=== PATIENT | female | born 1950 | race Caucasian/White ===

== ENCOUNTER 2017-10-15 12:01 | Day surgery (SDC) | payer MEDICARE ==
[2017-10-15] MEDS ORDERED: Lidocaine 1% PF 5 ML VIAL ONE (15:00)
[2017-10-15] MEDS ORDERED: PROPOFOL 200 MG/20 ML VIAL ONE (15:00)
--- NOTE | 2017-10-15 15:53 | OP ---
DATE OF PROCEDURE: 10/15/2017 SURGEON: Zulma De Los Santos M.D. PROCEDURE PERFORMED: Esophagogastroduodenoscopy with snare polypectomy. PREPROCEDURE DIAGNOSES: 1. Gastroesophageal reflux disease. 2. Epigastric pain. POSTPROCEDURE DIAGNOSES: 1. Examination to second portion of duodenum. 2. A 3 cm hiatal hernia from 37 cm to 40 cm. 3. Otherwise normal appearing esophagus without evidence of varices. 4. Grossly normal stomach. 5. Two diminutive sessile polyps in the duodenal bulb, removed by cold snare technique. 6. Otherwise normal duodenum. PROCEDURE IN DETAIL: Written informed consent was obtained. The patient was brought to the endoscop y suite. Total intravenous anesthesia was provided by Mercedes Sanchez CRNA. The patient was place d in the left lateral decubitus position. A bite block was inserted into the mouth. When adequate s edation was achieved, a Pentax video diagnostic gastroscope was introduced into the oral cavity and t he esophagus was carefully intubated. The gastroscope was advanced under direct visualization to the second portion of the duodenum. Endoscopic findings revealed a 3 cm hiatal hernia from 37-40 cm fro m the incisors. There was no evidence of esophageal stricture, varices, ulcer or esophagitis. The s tomach was then entered and carefully examined. This included a retroflexed view of the cardia and f undus. No ulcer or gastritis was identified. The duodenum was then inspected from the bulb to the s econd portion. Two diminutive sessile polyps, 3 and 4 mm in diameter were identified in the bulb and removed by cold snare technique. Good hemostasis was verified post-polypectomy. The postbulbar duo denum appeared normal. The stomach was then decompressed as the endoscope was removed from the patie nt. She was repositioned for the colonoscopy. There were no immediate complications. RECOMMENDATIONS: 1. Await pathology results. 2. Ask the patient to call me in 1 week for pathology results. 3. Follow with me in 6 weeks in late October. 4. Initiate omeprazole 40 mg q.a.m. for the next 6 weeks. 5. Proceed with colonoscopy.
--- NOTE | 2017-10-15 22:17 | OP ---
DATE OF PROCEDURE: 10/15/2017 TITLE OF PROCEDURE: Colonoscopy. PREPROCEDURE DIAGNOSIS: Average risk colon cancer screening. POSTPROCEDURE DIAGNOSES: 1. Exam to ileocecal valve; unsatisfactory bowel preparation. 2. Diffusely tortuous colon. 3. Mild sigmoid diverticulosis. 4. Small internal hemorrhoids and hypertrophied anal papillae. 5. Perianal condyloma. 6. No obvious colonic polyps identified; exam limited due to unsatisfactory bowel preparation. PROCEDURE IN DETAIL: Written informed consent was obtained. Upon completion of the EGD, the patient was repositioned for the colonoscopy. Total intravenous anesthesia was provided by Mercedes Sanchez CRNA. The patient was in the left lateral decubitus position. A digital rectal exam was performed , which revealed multiple anal condyloma in the background of a mild reddish discoloration of the per ianal skin for a diameter of about 2 inches. The skin also appeared mottled with several darker pigm ented areas posterior to the anal opening. The appearance was consistent with anal condyloma. A Pen tax video colonoscope was inserted through the anal canal and advanced under direct visualization to the ileocecal valve. Due to the unsatisfactory bowel preparation and the diffusely tortuous colon, t he colonoscope could not be advanced safely into the cecum. The colon was carefully examined as the colonoscope was slowly withdrawn from the cecum. The mucosa appeared diffusely pale. No polyps were identified. However, the exam was limited by the suboptimal quality of the bowel preparation. Brow n liquid stool of moderate amount pooled in multiple areas of the colon. The liquid stool contained vegetable material and additional fecal material which further obscured good visualization of the col onic mucosa. One small 5 mm nonbleeding vascular ectasia was noted in the transverse colon. It was not treated. Frequent diverticular orifices were noted in the sigmoid colon. A retroflexed exam in the rectum demonstrated small internal hemorrhoids and hypertrophied anal papillae. The colon was th en decompressed as the colonoscope was removed from the patient. She was transferred to the day stay surgery area for post-procedure monitoring. There were no immediate complications. RECOMMENDATIONS: 1. Resume previous diet. 2. Refer patient to General Surgery for treatment of the anal condyloma. 3. Repeat colonoscopy in five years. 4. Follow up with Gastroenterology in 6 weeks in late 10/2017.
== END 2017-10-15 16:32 | disposition home or self-care (01) ==
LOC: SDC 12:01
PROVIDERS: ATTEND Internal Medicine Gastroenterology
PROC: 0DB98ZX Excision of Duodenum, Via Natural or Artificial Opening Endoscopic, Diagnostic (ICD-10-PCS; principal; 2017-10-15)
PROC: 0DJD8ZZ Inspection of Lower Intestinal Tract, Via Natural or Artificial Opening Endoscopic (ICD-10-PCS; 2017-10-15)
DX: Z12.11 Encounter for screening for malignant neoplasm of colon (principal); K44.9 Diaphragmatic hernia without obstruction or gangrene; K57.30 Diverticulosis of large intestine without perforation or abscess without bleeding; K64.8 Other hemorrhoids; A63.0 Anogenital (venereal) warts; K31.7 Polyp of stomach and duodenum; K26.9 Duodenal ulcer, unspecified as acute or chronic, without hemorrhage or perforation; K21.9 Gastro-esophageal reflux disease without esophagitis; F11.11 Opioid abuse, in remission; J44.9 Chronic obstructive pulmonary disease, unspecified; R93.2 Abnormal findings on diagnostic imaging of liver and biliary tract; Z87.891 Personal history of nicotine dependence; Z88.5 Allergy status to narcotic agent; Z98.51 Tubal ligation status
CPT/HCPCS: 88305; J2001; J2704

== ENCOUNTER 2019-07-19 10:24 | Inpatient (IN) | payer MEDICARE ==
[2019-07-19] MEDS ORDERED: Norepinephrine 4 MG/4 ML VIAL ONE (10:29)
[2019-07-19] MEDS ORDERED: Fentanyl 20 mcg/ml (100 ml CADD) IV PRN (10:34)
[2019-07-19 10:51] LABS: ALV-art Gradient 145.425 (0-20); Actual Bicarbonate (HCO3a) 19.2 mEq/L (22-28); Analyzer IN Cardio ER; Base Excess (BEa) -6.5 mEq/L (-2.0 to +3.0); CO2 Tension 39.1 mmHg (35.0-45.0); Calcium, Ionized 1.12 mmol/L (1.12-1.30); Carboxyhemoglobin (COHb) 1.3 gm% (0.0-3.0); Hemoglobin (Hb) 12.4 g/dL (12.0-16.0); O2 Tension (PaO2) 233.5 mmHg (> 80.0); Potassium - ABG Lab 3.08 mmol/L (3.70-5.30); Puncture Site RRA; pH, Arterial 7.31 (7.35-7.45)
[2019-07-19 10:55] LABS: #Basophils 0.1 thou/uL (0.0-0.2); #Eosinphils 0.1 thou/uL (0.0-0.7); #Lymphocytes 4.6 thou/uL (1.20-3.40); #Monocytes 0.7 thou/uL (0.11-0.59); #Neutrophils 9.9 thou/uL (1.40-6.50); %Basophils 0.5 % (0.0-1.0); %Eosinophils 0.9 % (0.0-10.0); %Lymphocytes 29.7 % (21.0-51.0); %Monocytes 4.6 % (0.0-10.0); %Neutrophils 64.3 % (42.0-75.0); Hemoglobin 11.6 g/dL (12.0-16.0); Mean Corpuscular Hemoglobin 32.3 pg (27.0-31.0); Mean Corpuscular Volume 97.9 fL (78.0-98.0); Mean Platelet Volume 8.5 fL (7.4-10.4); Platelet Count 258 thou/uL (130-400); RBC Distribution Width 12.3 % (11.5-14.5); White Blood Cell (WBC) Count 15.4 thou/uL (4.8-10.8)
[2019-07-19 10:59] LABS: INR-International Normal Ratio 1.1; PTT 28.6 SEC (22.9-36.1); Prothrombin Time 14.1 SEC (12.0-14.7)
[2019-07-19 11:00] LABS: Bilirubin Negative (Negative); Blood, Urine 1+ (Negative); Clarity Clear (Clear); Glucose, Urine (Dipstick) 150 mg/dL (Negative); Leukocyte Negative Leu/uL (Negative); Nitrite Negative (Negative); Protein, Urine (Dipstick) 70 mg/dL (Neg-Trace); Squamous Epithelial 0-3 HPF (0-3); Urobilinogen Normal mg/dL (Less than 2); WBC/HPF 0-3 HPF (0-3)
--- NOTE | 2019-07-19 11:00 | RAD ---
XR Chest 1 View Portable History: Intubated patient Comparison: Radiograph August 2017 Findings: Patient intubated endotracheal tube tip above the sybil 4.5 cm. A defibrillator pad projec ts over the right and left hemithorax. Low-grade pulmonary edema. No acute osseous abnormality. Enteric tube tip below diaphragm although out of field of view. Abnorma l nodular density right lower lobe. Severe emphysema. Impression: 1. Satisfactory location of the enteric and endotracheal tubes. 2. Nodular density right lower lobe below the hilum. Nonemergent follow-up chest CT recommended.
[2019-07-19 11:05] LABS: Amphetamine Not Detected (NotDetected); Barbiturates Screen Not Detected (NotDetected); Benzodiazepine Screen Not Detected (NotDetected); Cocaine Metabolite Screen Not Detected (NotDetected); Medtox Control Line Valid? VALID (VALID); Medtox Reader # READER 1; Methadone Not Detected (NotDetected); Methamphetamine Not Detected (NotDetected); Opiate Screen Not Detected (NotDetected); Oxycodone Screen Not Detected (NotDetected); Phencyclidine (PCP) Not Detected (NotDetected); THC/Cannabinoid Screen Detected (NotDetected); Tricyclic Screen Not Detected (NotDetected)
[2019-07-19 11:07] LABS: Bacteria/HPF None Seen HPF (None Seen)
--- NOTE | 2019-07-19 11:09 | CT ---
CT BRAIN NONCONTRAST: DATE: 07/19/2019 HISTORY: 68-year-old female with altered mental status. Dr. Faria discussed findings by telephone with Dr. Vieyra of the emergency Department at 11:03 AM on COMPARISON: none FINDINGS: There is diffuse subarachnoid hemorrhage, throughout the basal cisterns, including suprasellar cister n, prepontine cistern, foramen magnum, quadrigeminal plate cistern, bilateral sylvian fissures (left greater than right), and superior cerebellar cistern. The lateral ventricles are mildly dilated , especially the temporal horns. Third ventricle is mildly dilated. Fourth ventricle is completely effaced. No midline shift. No acute calvarial fracture. IMPRESSION: 1) diffuse subarachnoid hemorrhage is evidence for ruptured intracranial aneurysm. 2) mild obstructive hydrocephalus due to the subarachnoid hemorrhage.
[2019-07-19 11:11] LABS: Acetaminophen Less than 6.0 mcg/mL (10.0-30.0); Alcohol Less than 10 mg/dL (Less than 10); Salicylate Less than 8.0 mg/dL (15.0-30.0)
[2019-07-19 11:13] LABS: ALT (SGPT) 11 U/L (8-55); AST (SGOT) 18 U/L (5-34); Albumin 3.5 g/dL (3.4-4.8); Alkaline Phosphatase 54 U/L (40-110); Anion Gap 9 mmol/L (10-20); BUN (Urea Nitrogen) 9 mg/dL (9.8-20.1); Bilirubin, Total 0.2 mg/dL (0.2-1.2); CK (CPK) 87 U/L (29-168); Calc. Creatinine Clearance 0 mL/min (70-130); Carbon Dioxide 24 mmol/L (23-31); Chloride 109 mmol/L (98-107); Estimated GFR-MDRD 72; Globulin 2.5 g/dL (2.4-3.5); Glucose 228 mg/dL (80-115); Lipase 28 U/L (8-78); Sodium 139 mmol/L (136-145)
[2019-07-19] MEDS ORDERED: manNITOL 20% 500 ML ONE (11:17)
--- NOTE | 2019-07-19 11:18 | CT ---
CT ANGIOGRAM OF BRAIN WITH AND WITHOUT CONTRAST: DATE: 07/19/2019 HISTORY: 68-year-old female with subarachnoid hemorrhage. Dr. Faria discussed the aneurysm by telephone with Dr. Vieyra of the emergency Department at 11:12 AM on 07/19/2019 COMPARISON: none TECHNIQUE: Noncontrast brain CT performed. Iodinated IV contrast injected. Bolus chasing technique scan performed through the head. Coronal and sagittal 3-D MIP reconstructions. FINDINGS: There is a saccular aneurysm arising from the medial aspect of the right supraclinoid internal caroti d artery with a short, slightly narrow neck. The bulbous distal portion of the aneurysm projects medially and inferiorly inside the posterior right side of the sella turcica, abutting the floor of t he sella turcica. The aneurysm measures approximately 5 x 5 x 4 mm. No other aneurysm is identified. IMPRESSION: 5 mm intracranial aneurysm arising from right carotid siphon, located within the sella turcica.
[2019-07-19 11:47] LABS: CKMB 6.1 ng/mL (0-6.6)
--- NOTE | 2019-07-19 11:55 | RAD ---
PORTABLE CHEST 1 VIEW: Date: 07/19/19 Time: 1138 hours HISTORY: Respiratory failure. FINDINGS/IMPRESSION: Comparison made with earlier exam at 1047 hours. There has been interval placement of a left subclavian central line with tip in the projection of the SVC. No pneumothorax seen. Remainder of exam is stable. POS: OFF
[2019-07-19] MEDS ORDERED: Acetaminophen 650 MG in Premix Bag 1 BAG IVPB PRN (12:12)
[2019-07-19] MEDS ORDERED: Aminocaproic Acid 1 GM in Sodium Chloride 0.9% 250 ML 250 ML IV SCH (12:15)
[2019-07-19] MEDS ORDERED: niCARdipine 25 MG in Sodium Chloride 0.9% 250 ML 240 ML IVPB SCH (12:15)
[2019-07-19] MEDS ORDERED: Aminocaproic Acid 5 GM in Sodium Chloride 0.9% 250 ML 250 ML IV SCH (12:15)
[2019-07-19] MEDS ORDERED: Amiodarone 150 MG/3 ML VIAL ONE (12:16)
[2019-07-19] MEDS ORDERED: Morphine 2 MG/ML SYRINGE SLOW IVP PRN ×2 (12:27→12:49)
[2019-07-19] MEDS ORDERED: Amiodarone 150 MG in Dextrose 5% in Water 100 ML IVPB SCH (12:30)
[2019-07-19] MEDS ORDERED: Amiodarone 450 MG in Dextrose 5% in Water 250 ML IVPB SCH ×2 (12:30→12:45)
[2019-07-19] MEDS ORDERED: CCU Electrolyte Replacement 1 EACH FS SCH (12:36)
--- NOTE | 2019-07-19 12:44 | PDOC.FPRHP ---
- History of Present Illness Chief Complaint: CONSULT History of Present Illness: Family medicine team was consulted by ER/Neurosurgery for medical management. Pt is intubated and sedated. History provided by and chart review. Pt is a 68-yo F who walked out of her bedroom this morning and called to her . saw her holding the door frame and saying she felt like she was going to pass out. Pt did experience syncope and sank to the floor. Did not respond and breathing appeared slower so started CPR. Called 911 and EMS arrived. Pt experienced cardiac arrest en route to ED and EMS gave Epi and achieved ROSC. She arrived to ED intubated and sedated. ED Course: Last Kvng and Ketamine was at 0950. Central line placed. Had Vtach for 30 sec and resolved. Amiodarone drip was hung. Mannitol given. - Allergies/Adverse Reactions Allergies Allergy/AdvReac Type Severity Reaction Status Date / Time codeine Allergy Nausea Verified 09/08/17 16:37 - Home Medications Medication Instructions Recorded Confirmed Type Ibuprofen [Advil] 200 mg PO Q6HR PRN 09/08/17 09/08/17 History Albuterol Sulfate [Proventil Hfa] 2 puff INH Q4HR PRN #1 inh 09/11/17 Rx Azithromycin [Zithromax] 250 mg PO DAILY #2 tab 09/11/17 Rx Benzonatate [Tessalon] 200 mg PO Q6H PRN #60 cap 09/11/17 Rx Sulfamethoxazole/Trimethoprim 1 tab PO BID #14 tab 09/11/17 Rx [Bactrim DS] predniSONE 40 mg PO QAM-WM #10 tab 09/11/17 Rx Comments: Above list is inaccurate. reports pt does not take any medicines. - History PMHx: COPD, Hep C s/p treatment, possible kidney disease?, collapsed lung PSHx: cervical conization, liver biopsy FHx: denied any family members of pt who had similar episode Social: - Extensive smoking history. Cigars 1-2 per day for past 15 years and cigarettes before that - Smokes marijuana daily - Alcohol socially - Hx of drug abuse when young PCP is Dr. Hernandez of [facility]. Pt has seen Dr. Hernandez only 3 times in the clinic - Review of Systems ROS unobtainable: due to endotracheal tube - Vital signs BP: 104/76, Pulse: 83, Resp: 14, Temp: 95.5 (Criticore Temp), Pain: UTR, O2 sat : 94 on Ventilator, Time: 07/19/2019 12:02. - Physical Exam Constitutional: other (intubated) HEENT: normocephalic and atraumatic -HEENT: fixed, small pupils, non-reactive Heart: RRR, normal S1/S2 Lungs: CTAB Abdomen: soft, non-tender, no masses/distention Skin: no rash/lesions, no jaundice Heme/Lymphatic: no purpura, no petechia FMR H&P: Results - Labs Result Diagrams: 07/19/19 10:34 07/19/19 10:34 Lab results: WBC 15.4 thou/uL (4.8-10.8) H 07/19/19 10:34 Hgb 11.6 g/dL (12.0-16.0) L 07/19/19 10:34 Hct 35.2 % (36.0-47.0) L 07/19/19 10:34 MCV 97.9 fL (78.0-98.0) 07/19/19 10:34 Plt Count 258 thou/uL (130-400) 07/19/19 10:34 Neutrophils % 64.3 % (42.0-75.0) 07/19/19 10:34 ABG pH 7.31 (7.35-7.45) L 07/19/19 10:43 ABG pCO2 39.1 mmHg (35.0-45.0) 07/19/19 10:43 ABG pO2 233.5 mmHg (> 80.0) H 07/19/19 10:43 Sodium 139 mmol/L (136-145) 07/19/19 10:34 Potassium 3.0 mmol/L (3.5-5.1) L 07/19/19 10:34 Chloride 109 mmol/L (98-107) H 07/19/19 10:34 Carbon Dioxide 24 mmol/L (23-31) 07/19/19 10:34 BUN 9 mg/dL (9.8-20.1) L 07/19/19 10:34 Creatinine 0.80 mg/dL (0.6-1.1) 07/19/19 10:34 Glucose 228 mg/dL (80-115) H 07/19/19 10:34 Lactic Acid 2.2 mmol/L (0.5-2.2) 07/19/19 10:41 Calcium 8.0 mg/dL (7.8-10.44) 07/19/19 10:34 Total Bilirubin 0.2 mg/dL (0.2-1.2) 07/19/19 10:34 AST 18 U/L (5-34) 07/19/19 10:34 ALT 11 U/L (8-55) 07/19/19 10:34 Alkaline Phosphatase 54 U/L (40-110) 07/19/19 10:34 Ammonia 55 umol/L (18-72) 07/19/19 11:13 Creatine Kinase 87 U/L (29-168) 07/19/19 10:34 CK-MB (CK-2) 6.1 ng/mL (0-6.6) 07/19/19 10:34 B-Natriuretic Peptide 77.3 pg/mL (0-100) 07/19/19 10:34 Serum Total Protein 6.0 g/dL (6.0-8.3) 07/19/19 10:34 Albumin 3.5 g/dL (3.4-4.8) 07/19/19 10:34 Lipase 28 U/L (8-78) 07/19/19 10:34 Urine Ketones Negative mg/dL (Negative) 07/19/19 10:37 Urine Blood 1+ (Negative) A 07/19/19 10:37 Urine Nitrite Negative (Negative) 07/19/19 10:37 Ur Leukocyte Esterase Negative Jose L/uL (Negative) 07/19/19 10:37 Urine RBC 11-20 HPF (0-3) A 07/19/19 10:37 Urine WBC 0-3 HPF (0-3) 07/19/19 10:37 Ur Squamous Epith Cells 0-3 HPF (0-3) 07/19/19 10:37 Urine Bacteria None Seen HPF (None Seen) 07/19/19 10:37 - Radiology Interpretation CT scan - head Status: image reviewed by me, report reviewed by me Additional comment: IMPRESSION: 1) diffuse subarachnoid hemorrhage is evidence for ruptured intracranial aneurysm. 2) mild obstructive hydrocephalus due to the subarachnoid hemorrhage. Chest x-ray Status: image reviewed by me, report reviewed by me Other Additional comment: CT angio of head w/ and w/o contrast IMPRESSION: 5 mm intracranial aneurysm arising from right carotid siphon, located within the sella turcica. FMR H&P: A/P - Problem List (1) SAH (subarachnoid hemorrhage) Current Visit: Yes Status: Acute Code(s): I60.9 - NONTRAUMATIC SUBARACHNOID HEMORRHAGE, UNSPECIFIED (2) Brain aneurysm Current Visit: Yes Status: Acute (3) COPD (chronic obstructive pulmonary disease) Current Visit: Yes Status: Chronic - Plan 68-yo F who minimally sees primary care, admitted here for: Subarachnoid hemorrhage, acute Intracranial Saccular Aneurysm Mild obstructive hydrocephalus - see imaging reports above. - Neurosurgery is primary team. - Pulmonology/CCU is also consulted. Replete electrolytes prn. - Will follow along to assist in medical management that may arise. Pt does not take anything at home for her chronic conditions. Hypokalemia -monitor, replete prn. CCU electrolyte protocol. Elevated troponin - 0.457. EKG normal. Will not trend. Could be from ROSC w/ EMS. Also showed UA w / protein 70, glucose 150, blood 1+, RBC 11-20, hyaline casts 7-10. Elevated TSH - 13.05. Ordered free T3 and free T4. COPD, untreated Tobacco abuse Cannabis abuse Hx of drug abuse - monitor. Code: FULL VTE PPx: SCDs GI PPx: famotidine Simona Chamberlain MD PGY1 Disposition/LOS: Admitted by neurosurgery to CCU. Will follow and give medical input as needed. FMR H&P: Upper Level - Pertinent history Medical history reviewed and noted as above. - Plan Date/Time: 07/19/19 1239 Consult for medical management. Neurosurgery is primary team. 68 yo F that complained of nonspecific headache for previous 2 days was ambulating at home and had witnessed collapse by . He began CPR at home and called EMS. Cardiac arrest with ROSC en route. Given epi, rocuronium by EMS. Patient is intubated and history obtained from . Central line placed in ED. Given 1L NS, fentanyl, levaphed, mannitol in ED. In ED had 30 secs of Vtach that spontaneously resolved, started on amio drip. PE Gen: intubated Resp: ventilator sounds, otherwise clear to auscultation anteriorly Heart: RRR, normal S1/2 Neuro: responds to painful stimuli BLE, not to UE. Pupils constricted, nonreactive. Imaging reviewed and noted above. A/P: Acute subarachnoid hemorrhage - mild obstructive hydrocephalus - neurosurgery consulted, drain placed with reported plan to reassess tomorrow - on levaphed for BP control Transient SVT - spontaneously resolved - on amio drip Cardiac arrest with ROSC - intubated, Pulmonology consulted and managing vent RLL lung nodule seen on CXR - may consider follow up chest CT pending clinical course Hypokalemia -replaced, am recheck Elevated troponin - 0.457, likely 2/2 demand. Patient underwent CPR as well - EKG nonspecific Elevated TSH - 13.05, pending T4/3. No hx hypothyroidism. History of COPD - not treated History of Hep C, treated Tobacco abuse Marijuana abuse Code: FULL VTE PPx: SCDs GI PPx: famotidine PCP: David Dispo: Likely poor prognosis. Neurosurgery managing. No further recommendations at this time. Patient has very minimal medical history or chronic conditions. Lilliana Hector, PGY-2, have evaluated this patient and agree with findings/ plan as outlined by market research intern resident. Pertinent changes/additions are listed here.
[2019-07-19] MEDS ORDERED: Ventilator Sedation Protocol 1 EACH FS SCH (12:45)
[2019-07-19] MEDS ORDERED: Magnesium 2 GM/50 ML 2 GM in Premix Bag 1 BAG IVPB PRN (12:48)
[2019-07-19] MEDS ORDERED: Potassium Phosphate 12 MMOL in Sodium Chloride 0.9% 250 ML 250 ML IV PRN (12:48)
[2019-07-19] MEDS ORDERED: Potassium Chloride 20 MEQ TAB PO PRN (12:48)
[2019-07-19] MEDS ORDERED: PHOS-NAK 1 PKT PACK PO PRN ×2 (12:48)
[2019-07-19] MEDS ORDERED: CCU ELECTROLYTE REPLACEMENT PROTOCOL FS PRN (12:48)
[2019-07-19] MEDS ORDERED: Magnesium Oxide 400 MG TAB PO PRN ×2 (12:48)
[2019-07-19] MEDS ORDERED: Potassium Chloride 40 MEQ in Sodium Chloride 0.9% 250 ML 250 ML IVPB PRN (12:48)
[2019-07-19] MEDS ORDERED: Potassium Phosphate 9 MMOL in Sodium Chloride 0.9% 100 ML IVPB PRN (12:48)
[2019-07-19] MEDS ORDERED: Potassium Phosphate 15 MMOL in Sodium Chloride 0.9% 250 ML 250 ML IV PRN (12:48)
[2019-07-19] MEDS ORDERED: Propofol 1,000 MG/100 ML VIAL IV PRN (12:49)
[2019-07-19] MEDS ORDERED: Fentanyl BOLUS 250 ML IVPB PRN (12:49)
[2019-07-19] MEDS ORDERED: Propofol BOLUS 1,000 MG/100 ML VIAL IV PRN (12:49)
[2019-07-19] MEDS ORDERED: Lorazepam 2 MG/ML VIAL SLOW IVP PRN (12:49)
[2019-07-19] MEDS ORDERED: DISCONTINUE PREVIOUS NARCOTIC PAIN MEDICATIONS AND BENZODIAZEPINES FS SCH (12:49)
[2019-07-19] MEDS ORDERED: fentaNYL Citrate/PF 2,000 MCG in Sodium Chloride 0.9% 60 ML IV SCH (12:49)
[2019-07-19] MEDS: Sodium Chloride 0.9% 1,000 ML IV SCH (13:30)
[2019-07-19] MEDS ORDERED: Iopamidol-370 76% 500 ML 1 ML ONE (13:43)
[2019-07-19] MEDS ORDERED: CEFAZOLIN 1 GM VIAL SLOW IVP SCH (14:00)
[2019-07-19] MEDS: ceFAZolin 1 GM/D5W 1 GM in Premix Bag 1 BAG IVPB SCH ×2 (14:05→21:31)
[2019-07-19 14:31] LABS: Lactic Acid 2.9 mmol/L (0.5-2.2)
[2019-07-19] MEDS: niMODipine 30 MG CAP PO SCH ×4 (15:06→21:35)
--- NOTE | 2019-07-19 15:13 | PDOC.EVN ---
Event Note - Event Note Event Note: Date/Time: 07/19/19 1511 I personally evaluated the patient and discussed the management with Dr. Chamberlain /Be I agree with the History, Examination, Assessment and Plan documented above with any addition or exceptions noted below - 68-yo F who walked out of her bedroom this morning and called to her . saw her holding the door frame and saying she felt like she was going to pass out. Pt did experience syncope and sank to the floor. Did not respond and breathing appeared slower so started CPR. Called 911 and EMS arrived. Pt experienced cardiac arrest en route to ED and EMS gave Epi and achieved ROSC. She arrived to ED intubated and sedated. PMH/PSH/Meds/SH reviewed and agree with resident's documentation. Afebrile P85 BP127/81 100% Exam repeated by me and agree with resident's findings. Labs: WBC=15.4, H/H=11.6/35.2, Plt = 258, Na =139, K=3.0, Mq=366, CO2=24, BUN/Cr=9/1.80, Xyco=046, TSH=13.0509, ABG=7.31/39/ 235/19 99%, CT brain - diffuse subarachnoid hemorrhage from ruptured intracranial aneurysm A/P: 1) SA hemorrhage due to aneurysm - Plan as per neurosurgery. Continue supportive care. Monitor BP closely and maintain in NS parameters. 2) Elevated TSH- will check T3 and T4. 3) Cardiac arrest- s/p ROSC; continue supportive care
[2019-07-19] MEDS: Potassium Chloride 20 MEQ/100 ML PREMIX BAG IVPB SCH ×2 (15:17→15:45)
[2019-07-19 17:47] LABS: Free T4 (Free Thyroxine) 0.76 ng/dL (0.70-1.48)
[2019-07-19] MEDS ORDERED: Dexamethasone 4 mg/ml Vial SLOW IVP SCH (18:00)
[2019-07-19 18:16] LABS: Hemoglobin A1c 5.2 % (4.0-6.0)
--- NOTE | 2019-07-19 19:25 | CON ---
DATE OF CONSULTATION: 07/19/2019 35 minutes of critical time. REASON FOR CONSULTATION: Ventilator management. HISTORY OF PRESENT ILLNESS: The patient is a 68-year-old female, who has been experiencing headache which got worse today. She eventually collapsed. She was intubated in the field and brought here. She has been found to have an aneurysmal bleed with diffuse subarachnoid hemorrhage. Neurosurgery is on the case and they are contemplating next course of action. PAST MEDICAL HISTORY: 1. Hepatitis C. 2. Suspected COPD. 3. Possible pneumothorax in the past. PAST SURGICAL HISTORY: She has had cervical conization and EGD. SOCIAL HISTORY: Has at least a 50 pack-year history of smoking. She quit smoking cigarettes in 2017. Smokes cigars and marijuana currently. MEDICATIONS: Prior to admission, none. ALLERGIES: CODEINE. FAMILY MEDICAL HISTORY: Remarkable for hypertension and COPD. REVIEW OF SYSTEMS: Cannot be obtained as the patient is unresponsive. PHYSICAL EXAMINATION: VITAL SIGNS: Heart rate in the 60s to 80s, blood pressure 114/70, and respiratory rate 16. NEUROLOGIC: Pupils are 2 mm, unreactive to light. She has no oculocephalic reflex. She has no gag reflex. She does withdraw her lower extremities to pain. She does not withdraw her upper extremities. Of note, this patient had been paralyzed in the field approximately 3 hours before I had seen her with rocuronium. NECK: No adenopathy or JVD. LUNGS: Coarse breath sounds diminished throughout. CARDIOVASCULAR: S1 and S2, regular. ABDOMEN: Thin, soft, and nontender. EXTREMITIES: No edema. LABORATORY DATA: White blood cell count 15, hematocrit 35, and platelet count 258. INR 1.1. A pH of 7.31, pCO2 of 39, pO2 of 233 on SIMV rate 14, tidal volume of 500, PEEP 5, pressure support 10, FiO2 of 60%. Sodium 139, potassium 3, chloride 109, CO2 of 24, BUN 9, creatinine 0.8, glucose 228. Troponin 0.457. TSH is 13. The chest x-ray shows chronic interstitial changes bilaterally. ET tube is in good position. Central line is in good position. CT angio of the brain shows a 5 mm aneurysm from the right carotid siphon located within the sella turcica. There is diffuse subarachnoid blood present. There is mild obstructive hydrocephalus from the subarachnoid hemorrhage, particularly in the area of the 4th ventricle. ASSESSMENT: 1. Subarachnoid hemorrhage from aneurysmal bleed. 2. Acute respiratory failure. 3. Ventricular tachycardia. 4. Underlying chronic obstructive pulmonary disease. PLAN: 1. Neurosurgery is planning placement of EVD. 2. I will go ahead and hyperventilate the patient. 3. Follow course in neurologic exam. Prognosis is quite poor. 4. Pepcid for GI prophylaxis. 5. SCDs for DVT prophylaxis. Job ID: [id number]
[2019-07-19] MEDS ORDERED: Ondansetron PF 4 MG/2 ML Vial SLOW IVP PRN (19:28)
--- NOTE | 2019-07-19 20:06 | CON ---
DATE OF CONSULTATION: 07/19/2019 SUBJECTIVE: The patient is seen and examined. I agree with Allison Khurram's evaluation on 07/2019. The patient is a 68-year-old woman, in otherwise good health, who spontaneously became unresponsive this morning. She was intubated at the scene, brought to the emergency room. She has had medications on board for intubation. Currently, the patient has a right corneal, had some trace movement of the right leg witnessed to noxious stimulus and had some overbreathing in the ventilator. CT scan shows subarachnoid hemorrhage diffusely. The ventricles seen and modestly enlarged. CT angiogram suggests a medially projecting right paraclinoid ICA aneurysm. IMPRESSION AND PLAN: Subarachnoid hemorrhage due to ruptured intracranial aneurysm. The clinical grade is poor and her overall prognosis is fairly poor. Given her otherwise good health and the fact that she has some preserved neurologic function, I would generally lean toward angiography and treating the aneurysm if possible. I have discussed this with Dr. Swain, and he will evaluate in the morning and plan to treat if indicated. I discussed with the family that overall the prognosis is quite poor and her situation is critical. Hopefully, there will be some neurologic improvement as the medications wear off with time. Job ID: [id number]
[2019-07-19] MEDS: Famotidine/PF 20 mg/2ml Vial SLOW IVP SCH (20:41)
[2019-07-20] MEDS: niMODipine 30 MG CAP PO SCH ×6 (01:09→20:15)
[2019-07-20] MEDS: Sodium Chloride 0.9% 1,000 ML IV SCH (01:09)
[2019-07-20 02:21] LABS: Anion Gap 16 mmol/L (10-20); BUN (Urea Nitrogen) 9 mg/dL (9.8-20.1); Calc. Creatinine Clearance 73 mL/min (70-130); Calcium 8.5 mg/dL (7.8-10.44); Carbon Dioxide 16 mmol/L (23-31); Chloride 111 mmol/L (98-107); Estimated GFR-MDRD 70; Glucose 153 mg/dL (80-115); Potassium 4.1 mmol/L (3.5-5.1); Sodium 139 mmol/L (136-145)
[2019-07-20 02:33] LABS: Troponin I 5.558 ng/mL (< 0.028)
[2019-07-20 02:44] LABS: Band 4 % (5-11); Hemoglobin 11.9 g/dL (12.0-16.0); Hypochromia SLIGHT = 6-15 cells (100X) (0-5/hpf); Lymphocytes 9 % (21-51); MDiff Complete? YES; Mean Corpuscular HGB CONC 33.4 g/dL (32.0-36.0); Mean Corpuscular Hemoglobin 32.2 pg (27.0-31.0); Mean Corpuscular Volume 96.2 fL (78.0-98.0); Mean Platelet Volume 8.3 fL (7.4-10.4); Monocytes 1 % (0-10); Neutrophil 86 % (42-75); Platelet Count 261 thou/uL (130-400); Platelet Morphology Comment Appears Adequate; RBC Distribution Width 12.3 % (11.5-14.5); Red Blood Cell (RBC) Count 3.71 mill/uL (4.20-5.40); White Blood Cell (WBC) Count 21.6 thou/uL (4.8-10.8)
--- NOTE | 2019-07-20 02:54 | PDOC.BPN ---
- Brief Progress Note Called to bedside for episodes of bradycardia in to 40s Nursing staff states that with manipulation patinet will frequently drop in to 40s Checked BMP, Trop, EKG K WNL, trop increased to 5.88, EKG shows ST depression in V4-V5 Patient with ICH, cannot anticoagulate at this time Amiodarone drip stopped at 2300. Would recommend Cardiology Consultation in AM
[2019-07-20] MEDS: Norepinephrine 8 MG in Sodium Chloride 0.9% 250 ML 242 ML IVPB PRN ×2 (04:20→19:48)
[2019-07-20] MEDS: ceFAZolin 1 GM/D5W 1 GM in Premix Bag 1 BAG IVPB SCH ×2 (05:56→14:44)
--- NOTE | 2019-07-20 06:12 | PDOC.FM ---
- Subjective Subjective: Mrs. Schuler continues to be intubated. She is more alert, follows simple commands. Moving more. - Objective Vital Signs & Weight: Vital Signs (12 hours) Pulse Resp BP Pulse Ox 07/20/19 04:00 22 H 07/20/19 02:22 81 91/69 07/20/19 02:00 22 H 07/20/19 00:00 22 H 07/19/19 22:00 22 H 07/19/19 21:45 91 121/80 07/19/19 20:00 25 H 100 07/19/19 18:32 87 103/67 Weight Weight 72.6 kg Most Recent Monitor Data Heart Rate from ECG 74 NIBP 121/87 NIBP BP-Mean 98 Respiration from ECG 22 SpO2 100 I&O: 07/18/19 07/19/19 07/20/19 06:59 06:59 06:59 Intake Total 2080 Output Total 1631 Balance 449 Result Diagrams: 07/20/19 02:01 07/20/19 02:01 Phys Exam - Physical Examination intubated Respiratory: clear to auscultation bilateral (vent sounds) Cardiovascular: RRR, no significant murmur Gastrointestinal: soft, no distention Musculoskeletal: no edema moves RUE, BLE on command. No movement of LUE. Opens eyes. Skin: normal turgor Dx/Plan (1) SAH (subarachnoid hemorrhage) Code(s): I60.9 - NONTRAUMATIC SUBARACHNOID HEMORRHAGE, UNSPECIFIED Status: Acute (2) Brain aneurysm Status: Acute (3) COPD (chronic obstructive pulmonary disease) Status: Chronic - Plan Plan: Acute subarachnoid hemorrhage - neurosurgery consulted, EVD placed with plan for coiling today - on levaphed for BP control, nimodipine, cefazolin Transient SVT - spontaneously resolved - amio drip discontinued. Had bradycardia episodes last night. Cardiology was consulted. Cardiac arrest with ROSC - intubated, Pulmonology consulted and managing vent RLL lung nodule seen on CXR - may consider follow up chest CT pending clinical course Hypokalemia, resolved Elevated troponin - 0.457->5 - EKG nonspecific, V4-5 Elevated TSH - 13.05. No hx hypothyroidism. History of COPD - not treated History of Hep C, treated Tobacco abuse Marijuana abuse Code: FULL VTE PPx: SCDs GI PPx: famotidine PCP: David Dispo: Neurosurgery managing. No further recommendations at this time. Addendum - Attending - Attending Attestation Date/Time: 07/20/19 5145 I personally evaluated the patient and discussed the management with Dr. Lr I agree with the History, Examination, Assessment and Plan documented above with any addition or exceptions noted below. Patient purposefully follows command able wiggle fingers and toes on command bilaterally. Management of SAH per Neurosurgery and Critical care. Patient continues on mechanical ventilation adjusting to decrease ICH with increased vent rate. Patient for cerebral angiogram and potential coiling later today. Elevated troponin felt due to demand and SAH insult appreciate Cardiology recommendations. Noted elevated TSH of questionable significance.
--- NOTE | 2019-07-20 06:52 | PRG ---
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 She had development of some slight hydrocephalus, and the EVD was placed in the ER at the bedside at that time. She has been draining anywhere from 0 to 15 mL an hour with ICP running from 1 to 13. ICP only elevates with coughing spells. Her coughing spells have improved with low-dose p.r.n. fentanyl. She had a very limited neurologic exam yesterday in the Emergency Department as she had recently received several medications for intubation including ketamine, fentanyl and rocuronium. Her CT today shows placements of the right EVD as well as decreased size of the ventricles. Nursing report purposeful movement with pt opening her eyes and attempting to grab the ETT when down in CT. Also has had issues with intermittent bradycardia that medicine is following closely. OBJECTIVE: On exam, her neurologic status has slightly improved. She has not opened her eyes for me this morning, but she is following commands on the right side and will move her right foot and gently squeeze the right hand. Pupils are pinpoint small and sluggish. They are equal in size. She continues to have a gag reflex occasionally over breathing the ventilator. Imp- improved neurologic status this am with some purposeful movements at times PLAN: Plans were likely for attempted coiling of this aneurysm by Dr. Walt Swain later today. With regard to her intermittent cardiac issues overnight, we will defer to the medical team and they also appear to be recommending Cardiology eval. Job ID: [id number] [facility]
[2019-07-20 06:57] LABS: Actual Bicarbonate (HCO3a) 17.4 mEq/L (22-28); Base Excess (BEa) -3.8 mEq/L (-2.0 to +3.0); Carboxyhemoglobin (COHb) 0.8 gm% (0.0-3.0); Hemoglobin (Hb) 12.3 g/dL (12.0-16.0); O2 Tension (PaO2) 60.8 mmHg (> 80.0); Potassium - ABG Lab 3.77 mmol/L (3.70-5.30); pH, Arterial 7.51 (7.35-7.45)
[2019-07-20 07:29] LABS: CO2 Tension 22.2 mmHg (35.0-45.0); Puncture Site RRA
[2019-07-20 07:37] LABS: Troponin I 5.198 ng/mL (< 0.028)
--- NOTE | 2019-07-20 07:42 | CON ---
DATE OF CONSULTATION: REASON FOR CONSULTATION: Elevated troponin. PRIMARY MEDICAID BILLING SPECIALIST: None. HISTORY OF PRESENT ILLNESS: Ms. Schuler is an unfortunate 68-year-old woman, who had an [id number] arrest. She was diagnosed with a diffuse subarachnoid hemorrhage. She also has aneurysm likely causing her demise. History is currently limited. She is currently intubated and sedated. She does open her eyes to voice, but does not follow commands. She is currently on Levophed for blood pressure support. PAST MEDICAL HISTORY: Previous tobacco abuse, quit in 2017; COPD, hepatitis C, previous pneumothorax, previous liver biopsy. SOCIAL HISTORY: As above including continued marijuana use. Social alcohol use. REVIEW OF SYSTEMS: Unobtainable. PHYSICAL EXAMINATION: GENERAL: The patient is currently intubated, sedated, and opens eyes to voice, but does not follow commands. VITAL SIGNS: Blood pressure 117/90, pulse 53, respirations 20. VITAL SIGNS: NEUROLOGIC: The patient is alert and oriented x3 with no focal neurologic deficits. HEENT: Sclerae without icterus. Mouth has moist mucous membranes with normal pallor. NECK: No JVD. Carotid upstroke brisk. No bruits bilaterally. LUNGS: Clear to auscultation with unlabored respirations. BACK: No scoliosis or kyphosis. CARDIAC: Regular rate and rhythm with normal S1 and S2. No S3 or S4 noted. No significant rubs, murmurs, thrills, or gallops noted throughout the precordium. PMI is not displaced. There is no parasternal heave. ABDOMEN: Soft, nontender, nondistended. No peritoneal signs present. No hepatosplenomegaly. No abnormal striae. EXTREMITIES: 2+ femoral and 2+ dorsalis pedis pulses. No cyanosis, clubbing, or edema. SKIN: No gross abnormalities. PERTINENT LABORATORY DATA: Hemoglobin 11.9, hematocrit 35.7, white blood cell count 21,000. Creatinine 0.82. Peak troponin 5.5. EKG shows sinus bradycardia with no ST-T wave changes suggesting ischemia or infarction. Telemetry monitoring did show brief nonsustained VT. IMPRESSION: 1. Elevated troponin. 2. Cav-ie-wshtspqj arrest. 3. Diffuse subarachnoid hemorrhage. RECOMMENDATIONS: 1. The increased troponin is likely related to demand ischemia. She does have underlying risk factor for CAD. This does not appear to be initial acute event. The initial insult is from her subarachnoid hemorrhage as that likely caused the elevation in troponin. 2. Neurosurgery is currently on board with potential scheduled cerebral angio to address the aneurysm. 3. Avoid aspirin or anticoagulation therapy or anti-platelet therapy. 4. Vent management per Pulmonary. 5. Long-term prognosis appears poor. Okay to follow with you. Job ID: [id number]
--- NOTE | 2019-07-20 07:48 | PRG ---
DATE OF SERVICE: 07/20/2019 35 minutes critical care time. SUBJECTIVE: The patient remains intubated on mechanical ventilation. OBJECTIVE: VITAL SIGNS: Her temperature is 100.2 with a T-max of 100.4, pulse 82, blood pressure 117/90. Intake 24 hours 2080, output 1677. Neurologic: The patient will open her eyes to voice. She has a gag reflex. She has spontaneous respirations. She withdrawals all 4 extremities. She will follow commands with her bilateral upper extremities and her right leg. HEENT: Otherwise unremarkable. NECK: No JVD. LUNGS: Coarse breath sounds. CARDIAC: S1, S2. Slightly tachycardic. ABDOMEN: Soft, nontender. EXTREMITIES: No edema. LABORATORY DATA: Sodium 139, potassium 4.1, chloride 111, CO2 of 16, anion gap 12, BUN 9, creatinine 0.8, glucose 153. ABG is pending. White blood cell count 21.6, hematocrit 35.7, and platelet count 261. IMAGING DATA: Head CT shows some improvement. A chest x-ray shows that the tip of the ET tube is slightly high. Peripheral lung yan are clear. ASSESSMENT: 1. Subarachnoid hemorrhage. 2. Acute respiratory failure requiring mechanical ventilation. 3. Aneurysmal brain bleed. PLAN: 1. Coiling is planned for today. 2. Await results of ABG, adjust ventilator settings accordingly. 3. Levophed and nicardipine as needed for blood pressure control. 4. Nimodipine for vasospasm. 5. I will go ahead and stop the amiodarone. Job ID: [id number]
--- NOTE | 2019-07-20 07:49 | HP ---
HISTORY OF PRESENT ILLNESS: The patient is a 68-year-old female, who has a past medical history of hepatitis C, but is otherwise healthy according to her family , who had a sudden witnessed syncopal episode earlier today by her family. They promptly contacted EMS and [facility] presented on arrival. In transfer to [facility], the patient coded en route. She was treated with chest compressions and a dose of epi with return of circulation. She was also intubated en route and treated with rocuronium and ketamine prior to arrival. Upon arrival to the emergency department, a noncontrast CT of head was done, which showed diffuse subarachnoid hemorrhage. CTA was done shortly after that time, which showed what seems to suggest a ruptured right PICA aneurysm. Neurosurgery was consulted for further intervention and management. I visited the patient at the bedside. She currently has a GCS of 3. She is intubated, but has not been getting any additional sedatives other than a small doses of fentanyl. Her pupils are pinpoint and nonreactive. She is intubated, but does have a positive gag reflex. She is not over breathing the ventilator. She has no withdrawal to pain during my exam. Notable labs include an elevated troponin at 0.457 as well as an elevated TSH of 13.05. Her potassium was slightly elevated at 3.0 and a glucose of 228. She is positive for THC. Her white blood count is elevated at 15,000. PAST MEDICAL HISTORY: Hepatitis C. Family denies any other prior medical issues and reports she does not take any anticoagulants or qcfw-eyu-flarfht aspirin. PAST SURGICAL HISTORY: History of liver biopsy. SOCIAL HISTORY: The patient lives with the family. She does occasionally smoke marijuana. REVIEW OF SYSTEMS: Unobtainable. PHYSICAL EXAMINATION: VITAL SIGNS: Blood pressure is 104/76, respiratory rate is 14. She is currently intubated. She is 94% on the ventilator. Pulse is 83 and temperature is 95.5. CONSTITUTIONAL: GCS 3. The patient does not open her eyes. She has no verbal or motor response. HEENT: Head; normocephalic and atraumatic. Pupils are pinpoint and nonreactive. RESPIRATORY: Symmetric chest expansion. She is currently being intubated. CARDIOVASCULAR: Regular rate and rhythm. MUSCULOSKELETAL: No obvious trauma. Symmetric pulses. NEUROLOGIC: GCS3. She is not opening her eyes. No verbal or motor response. She does have a positive gag reflex. ASSESSMENT: Acute subarachnoid hemorrhage, cardiac arrest. PLAN: This is an unfortunate 68-year-old female, who suffered acute subarachnoid hemorrhage and acute cardiac arrest en route. 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 The patient has not required any hypertensive here in the emergency department, but we will keep a close eye on her blood pressure when she is transferred to ICU and her systolic blood pressure goal should be less than 140. I have also started Amicar. We will monitor her neurologic exam closely with q.1 neuro checks. I will repeat her a.m. head CT. I discussed this plan with Dr. Dunaway. He will review further and may possibly need acute intervention at some point with angiography. Job ID: [id number] [facility]
--- NOTE | 2019-07-20 08:05 | OP ---
DATE OF PROCEDURE: 07/19/2019 PROCEDURE INDICATION: Acute subarachnoid hemorrhage with hydrocephalus. PROCEDURE PERFORMED: Right external ventriculostomy placement with moshe hole. DESCRIPTION OF PROCEDURE: Adam's point was located on the right frontal scalp. The area was marked. I then prepped with ChloraPrep and draped in a sterile fashion. I made a small 1 cm incision with a 15 blade down to the periosteum. A cranial twist drill was then used to create a moshe hole at Adam's point in the right frontal bone. The dural wound was cleared using blunt dissection. The EVD catheter was placed at the depth of 7 cm with slow egress of serosanguineous fluid through the catheter. This was then hooked up to the García drain. The incision was closed using Ethilon suture and here to the scalp using 2-0 suture which was silk. The drain was set at 15 cm of water open. The patient was also placed on Ancef q.8 h. The patient was notified following the procedure, and the patient was transitioned to the ICU. Job ID: [id number]
--- NOTE | 2019-07-20 08:34 | RAD ---
PORTABLE CHEST 1 VIEW: DATE: 07/20/2019. TIME: 4:55 a.m. HISTORY: Respiratory failure and pneumonia. FINDINGS/IMPRESSION: Line and tube placements are unchanged in position. The heart size is normal. The lungs are expande d without lobar consolidation, pneumothoraces, or pleural effusions. POS: [facility]
--- NOTE | 2019-07-20 08:34 | CT ---
PRELIMINARY REPORT/[facility]/EMERGENCY AFTER HOURS PROCEDURE: PROCEDURE INFORMATION: Exam: CT Head Without Contrast Exam date and time: 07/20/2019 4:44 AM Age: 68 years old Clinical history: Condition or disease and device placement; Cerebral fluid drainiage device or shunt ; Prior surgery; Surgery date: Post-operative (0-2 days); Patient HX: F/u sah TECHNIQUE: Imaging protocol: Computed tomography of the head without contrast. COMPARISON: CT Brain WO Con 2019-07-19 10:55 FINDINGS: Brain: Scattered subarachnoid hemorrhage within the cortical sulci and basilar cisterns is not signif icantly changed. Small amount of pneumocephalus. Ventricles: Right frontal EVD tip passes into the third ventricle. Improved hydrocephalus. Bones/joints: Unremarkable. No acute fracture. Sinuses: Visualized sinuses are unremarkable. No fluid levels. Mastoid air cells: Visualized mastoid air cells are well aerated. Soft tissues: Right lateral scalp soft tissue swelling. IMPRESSION: 1. Right frontal EVD tip passes into the third ventricle. 2. Improved hydrocephalus. 3. Scattered subarachnoid hemorrhage within the cortical sulci and basilar cisterns is not significan tly changed. Thank you for allowing us to participate in the care of your patient. Dictated and Authenticated by: Jason Cox MD 07/20/2019 5:03 AM Central Time ([place] & [place]) FINAL REPORT HEAD CT WITHOUT CONTRAST: COMPARISON: 07/19/19. HISTORY: Follow-up subarachnoid hemorrhage. FINDINGS/IMPRESSION: This report is in agreement with the preliminary report by Jennifer. Interval placement of ventriculoperi toneal shunt catheter. Distal tip appears to be in the left brainstem. Ventricular system appears to be decompressed since placement of the [employer] shunt catheter. Stable subarachnoid hemorrhage. Small focus of pneumocephalus, iatrogenic. POS: [facility]
--- NOTE | 2019-07-20 09:24 | PRG ---
DATE OF SERVICE: 07/20/2019 Ms. Schuler is a 68-year-old female admitted yesterday by Dr. Dunaway's service for aneurysmal subarachnoid hemorrhage. Clinically, she was doing poorly. She is intubated. She had a ventriculostomy placed. However, over the course of the evening, she started to show significant improvement to the point where she will episodically follow commands per nursing. She will open her eyes. She clearly has purposeful movements. The plan is to perform conventional angiography today with the intent to treat her aneurysm with a coil embolization. While Dr. Dunaway discussed this with the family yesterday, I have not reached them today, but we will continue to do so for the purposes of consent. Job ID: [id number] [facility]
[2019-07-20] MEDS: Famotidine/PF 20 mg/2ml Vial SLOW IVP SCH ×2 (09:29→20:15)
[2019-07-20] MEDS ORDERED: Heparin (Artline) 1,000 ML ONE (09:40)
[2019-07-20] MEDS ORDERED: Lidocaine 1% (PF) 30 ML VIAL ONE (09:40)
[2019-07-20] MEDS: Lactated Ringer's 1,000 ML IV SCH ×2 (09:42→18:31)
[2019-07-20] MEDS ORDERED: Rocuronium Bromide 10 MG/ML (10ML VIAL) ONE (09:46)
[2019-07-20] MEDS ORDERED: Fentanyl 250 MCG/5 ML VIAL ONE (10:56)
[2019-07-20] MEDS ORDERED: Heparin 10,000 UNITS/1 ML VIAL ONE (11:23)
[2019-07-20] MEDS ORDERED: Iopamidol 370 76% 50 ML VIAL FS ONE (11:23)
[2019-07-20] MEDS ORDERED: Iopamidol 370 76% 100 ML VIAL ONE (11:23)
[2019-07-20] MEDS: CEFAZOLIN 1 GM in Sodium Chloride 0.9% 100 ML IVPB SCH (23:02)
[2019-07-21] MEDS: niMODipine 30 MG CAP PO SCH ×6 (00:08→20:00)
[2019-07-21 04:26] LABS: #Lymphocytes 1.4 thou/uL (1.20-3.40); #Monocytes 1.2 thou/uL (0.11-0.59); #Neutrophils 12.9 thou/uL (1.40-6.50); %Basophils 0.1 % (0.0-1.0); %Eosinophils 0.1 % (0.0-10.0); %Lymphocytes 9.1 % (21.0-51.0); %Monocytes 7.5 % (0.0-10.0); %Neutrophils 83.2 % (42.0-75.0); Hemoglobin 10.3 g/dL (12.0-16.0); Mean Corpuscular HGB CONC 33.6 g/dL (32.0-36.0); Mean Corpuscular Hemoglobin 32.4 pg (27.0-31.0); Mean Corpuscular Volume 96.7 fL (78.0-98.0); Mean Platelet Volume 8.6 fL (7.4-10.4); Platelet Count 173 thou/uL (130-400); RBC Distribution Width 12.7 % (11.5-14.5); Red Blood Cell (RBC) Count 3.19 mill/uL (4.20-5.40); White Blood Cell (WBC) Count 15.6 thou/uL (4.8-10.8)
[2019-07-21 04:44] LABS: Anion Gap 11 mmol/L (10-20); BUN (Urea Nitrogen) 10 mg/dL (9.8-20.1); Calc. Creatinine Clearance 95 mL/min (70-130); Calcium 8.1 mg/dL (7.8-10.44); Carbon Dioxide 21 mmol/L (23-31); Chloride 110 mmol/L (98-107); Estimated GFR-MDRD 89; Glucose 120 mg/dL (80-115); Potassium 3.7 mmol/L (3.5-5.1); Sodium 138 mmol/L (136-145)
[2019-07-21] MEDS: CEFAZOLIN 1 GM in Sodium Chloride 0.9% 100 ML IVPB SCH ×3 (05:52→21:06)
--- NOTE | 2019-07-21 06:22 | PDOC.FM ---
- Subjective Subjective: Mrs. Schuler is intubated this morning but more alert. Opens eyes to her name, follows commands, able to move all extremities. - Objective MAR Reviewed: Yes Vital Signs & Weight: Vital Signs (12 hours) Temp Pulse Resp BP Pulse Ox 07/21/19 06:00 16 07/21/19 04:00 98.5 F 16 07/21/19 02:00 63 16 135/79 07/21/19 00:00 98.8 F 16 07/20/19 22:00 16 07/20/19 21:58 84 128/76 07/20/19 20:00 99.1 F 16 99 Weight Admit Weight 69.683 kg Weight 67.6 kg Most Recent Monitor Data Heart Rate from ECG 68 NIBP 119/80 NIBP BP-Mean 93 Respiration from ECG 19 SpO2 97 I&O: 07/19/19 07/20/19 07/21/19 06:59 06:59 06:59 Intake Total 2120 2449 Output Total 1677 1055 Balance 443 1394 Result Diagrams: 07/21/19 04:17 07/21/19 03:30 Phys Exam - Physical Examination intubated Respiratory: clear to auscultation bilateral (vent sounds) Cardiovascular: RRR, no significant murmur Gastrointestinal: soft Musculoskeletal: no edema Neurological: moves all 4 limbs LLE with less strength compared to right. Skin: normal turgor Dx/Plan (1) SAH (subarachnoid hemorrhage) Code(s): I60.9 - NONTRAUMATIC SUBARACHNOID HEMORRHAGE, UNSPECIFIED Status: Acute (2) Brain aneurysm Status: Acute (3) COPD (chronic obstructive pulmonary disease) Status: Chronic - Plan Plan: Acute subarachnoid hemorrhage - neurosurgery consulted, EVD placed, coiling done 07/21, op note pending - on levaphed for BP control, nimodipine, cefazolin Cardiac arrest with ROSC - intubated, Pulmonology consulted and managing vent RLL lung nodule seen on CXR - may consider follow up chest CT pending clinical course Hypokalemia, resolved Elevated troponin - 0.457->5 - EKG nonspecific, V4-5 Elevated TSH - 13.05. No hx hypothyroidism. T4/3 wnl. Unable to ask patient if symptomatic. Likely subclinical. History of COPD - not treated History of Hep C, treated Tobacco abuse Marijuana abuse Code: FULL VTE PPx: SCDs GI PPx: famotidine PCP: David Dispo: Neurosurgery managing. No further recommendations. Will sign off at this time. Will be happy to see patient again if need arises. Addendum - Attending - Attending Attestation Date/Time: 07/21/19 3315 I personally evaluated the patient and discussed the management with Dr. Lr I agree with the History, Examination, Assessment and Plan documented above with any addition or exceptions noted below. Still with bradycardia Cardiology onboard. Patient extubated with impressive recovery . We are not contributing to current management and will sign off at this time we are happy to become re- involved as needed. 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
[2019-07-21 06:48] LABS: Actual Bicarbonate (HCO3a) 17.6 mEq/L (22-28); Calcium, Ionized 1.12 mmol/L (1.12-1.30); Carboxyhemoglobin (COHb) 0.4 gm% (0.0-3.0); Hemoglobin (Hb) 11.2 g/dL (12.0-16.0); Potassium - ABG Lab 3.78 mmol/L (3.70-5.30)
[2019-07-21 07:20] LABS: Puncture Site RRA
--- NOTE | 2019-07-21 07:31 | PRG ---
DATE OF SERVICE: 07/21/2019 35 minutes critical care time. SUBJECTIVE: This patient remains intubated on mechanical ventilation. She underwent coiling of her cerebral aneurysm yesterday. She is fully awake. She follows commands for me without limitation. OBJECTIVE: VITAL SIGNS: Temperature 98.5, pulse 68, blood pressure 119/80, O2 saturation 97%. Intake for 24 hours 2449, output 1055. HEENT: Pupils reactive, sclerae anicteric. Oropharynx clear. NECK: No adenopathy or JVD. CHEST: Clear to auscultation. CARDIAC: S1-S2 regular. ABDOMEN: Soft and nontender. EXTREMITIES: No edema. LABORATORY DATA: White blood cell count 15.6, hematocrit 30.8, and platelet count 173. Sodium 138, potassium 3.7, chloride 110, CO2 of 21, BUN 10, creatinine 0.6 and glucose 120. Chest x-ray shows no mass, effusion, or infiltrate. ASSESSMENT: 1. Status post subarachnoid hemorrhage from aneurysmal bleed. 2. Status post ventriculostomy placement. 3. Status post aneurysmal coiling. 4. Acute respiratory failure requiring mechanical ventilation. PLAN: 1. She looks like a good candidate for extubation, so hopefully we can proceed with that later this morning. 2. Continue norepinephrine and nimodipine in efforts to prevent vasospasm. Job ID: [id number]
[2019-07-21] MEDS: Famotidine/PF 20 mg/2ml Vial SLOW IVP SCH ×2 (07:54→20:00)
--- NOTE | 2019-07-21 08:03 | PRG ---
DATE OF SERVICE: 07/21/2019 SUBJECTIVE: Ms. Schuler is waking up. She is following commands. She recently underwent coiling x3 yesterday. She continues to be bradycardic intermittently. No current ST-T wave changes suggesting ischemia are present. OBJECTIVE: VITAL SIGNS: Blood pressure 139/77, pulse 53, and temperature afebrile. LUNGS: Clear to auscultation. HEART: Regular rate and rhythm. ABDOMEN: Soft, nontender, and nondistended. EXTREMITIES: No edema. PERTINENT LABORATORY DATA: Hemoglobin 10.3, hematocrit 30.8, and platelet count 173. Creatinine 0.66, chloride 110. Peak troponin 5.5, downtrending to 5.1. IMPRESSION: 1. Elevated troponin. 2. Subarachnoid hemorrhage. 3. Cerebral aneurysm, status post coiling. RECOMMENDATIONS: 1. Continue supportive care. 2. Order echo to assess LVEF. 3. Bradycardia likely related to recent neurologic insult. She does not appear to be unstable and we will continue to monitor closely. 4. Avoid beta-mark anthony therapy given low heart rate. 5. Avoid aspirin, antiplatelet, or anticoagulants given recent subarachnoid hemorrhage. 6. Continue respiratory support. 7. We will follow. Job ID: [id number]
--- NOTE | 2019-07-21 08:05 | RAD ---
Portable frontal chest radiograph: 07/21/2019 COMPARISON: 07/20/2019 HISTORY: Pneumonia FINDINGS: Stable endotracheal tube, nasogastric tube, and left sided vascular catheter. Stable nonspe cific increased linear interstitial density. Mild asymmetric increased density in the medial left lung base may signify focal infiltrate. No significant interval change. IMPRESSION: Stable frontal chest radiograph as detailed above.
--- NOTE | 2019-07-21 08:13 | PRG ---
DATE OF SERVICE: 07/21/2019 SUBJECTIVE: The patient is a 68-year-old female, who had acute subarachnoid hemorrhage on 07/19/2019. She was found to have a ruptured right paraclinoid ICA aneurysm. This has been status post coiling by Dr. Swain. She is postoperative day #1 status post procedure. Overnight, she did continue to have some intermittent bradycardia. She otherwise neurologically is significantly improved this morning. She is more awake and is following commands. Her EVD is continuing to put out 0-20 mL an hour depending on her coughing spells. ICP has been 7-10 also due to coughing spells. EVD fluid is serosanguineous and is currently set at 15 cm of water. OBJECTIVE: GENERAL: This morning on my exam, the patient is awake and alert. She is tracking appropriately. HEENT: Pupils are equal and reactive. NEURO: She is following commands over all 4 extremities, is slightly stronger in the right upper and right lower extremity compared to the left. ASSESSMENT AND PLAN: Patient is status post aneurysmal coiling by Dr. Swain. Her neurologic exam is significantly improved. I have stopped her Amicar and we will attempt to keep her blood pressure systolic range from 110-180. She is still requiring p.r.n. Levophed. She is doing much better and hopefully at some point may be able to extubate soon. We will defer this to the Critical Care team. Continue to monitor closely. Job ID: [id number]
[2019-07-21] MEDS: Lactated Ringer's 1,000 ML IV SCH ×2 (14:26→23:55)
--- NOTE | 2019-07-21 18:57 | PRG ---
DATE OF SERVICE: 07/21/2019 Ms. Schuler continues to improve neurologically. She was just extubated and has been following commands. Her EVD is functional. Yesterday, she had a successful coiling of her intracranial aneurysm. We will begin a ventriculostomy weaning by increasing the drain to 20 cm tomorrow. She continues to make progress, although she remains in critical condition due to the subarachnoid hemorrhage. I updated her daughter. Job ID: [id number]
[2019-07-22] MEDS: niMODipine 30 MG CAP PO SCH ×6 (00:01→21:08)
[2019-07-22 05:08] LABS: #Lymphocytes 1.7 thou/uL (1.20-3.40); #Monocytes 1.4 thou/uL (0.11-0.59); #Neutrophils 14.7 thou/uL (1.40-6.50); %Basophils 0.1 % (0.0-1.0); %Eosinophils 0.1 % (0.0-10.0); %Lymphocytes 9.8 % (21.0-51.0); %Monocytes 7.6 % (0.0-10.0); %Neutrophils 82.4 % (42.0-75.0); Hemoglobin 10.1 g/dL (12.0-16.0); Mean Corpuscular HGB CONC 33.3 g/dL (32.0-36.0); Mean Corpuscular Hemoglobin 31.9 pg (27.0-31.0); Mean Corpuscular Volume 95.8 fL (78.0-98.0); Mean Platelet Volume 9.3 fL (7.4-10.4); Platelet Count 171 thou/uL (130-400); RBC Distribution Width 12.5 % (11.5-14.5); Red Blood Cell (RBC) Count 3.16 mill/uL (4.20-5.40); White Blood Cell (WBC) Count 17.8 thou/uL (4.8-10.8)
[2019-07-22 05:20] LABS: Anion Gap 8 mmol/L (10-20); BUN (Urea Nitrogen) 9 mg/dL (9.8-20.1); Calc. Creatinine Clearance 92 mL/min (70-130); Calcium 8.5 mg/dL (7.8-10.44); Carbon Dioxide 25 mmol/L (23-31); Chloride 110 mmol/L (98-107); Estimated GFR-MDRD Greater than 90; Glucose 119 mg/dL (80-115); Potassium 3.3 mmol/L (3.5-5.1); Sodium 140 mmol/L (136-145)
[2019-07-22] MEDS: CEFAZOLIN 1 GM in Sodium Chloride 0.9% 100 ML IVPB SCH ×3 (05:55→21:11)
[2019-07-22] MEDS: Norepinephrine 8 MG in Dextrose 5% in Water 242 ML IVPB PRN (06:48)
[2019-07-22] MEDS ORDERED: DC Sedation Protocol FS ONE (07:36)
--- NOTE | 2019-07-22 07:38 | PRG ---
DATE OF SERVICE: 07/22/2019 SUBJECTIVE: Ms. Schuler has been extubated. She is somnolent. She has no current complaints. OBJECTIVE: VITAL SIGNS: Blood pressure 114/65, pulse 66, respirations 20. LUNGS: Mild wheezing noted bilaterally. HEART: Regular rate and rhythm. Bradycardic. ABDOMEN: Soft, nontender, nondistended. EXTREMITIES: No edema. PERTINENT LABORATORY DATA: Hemoglobin 10.1, hematocrit 30.3, white blood cell count 17.8. IMPRESSION: 1. Subarachnoid hemorrhage. 2. Likely chronic obstructive pulmonary disease. 3. Tobacco abuse. 4. Hypotension. RECOMMENDATIONS: 1. Ms. Schuler continues to be on low-dose norepinephrine. We will continue and try to titrate as blood pressure allows. 2. The patient's bradycardia likely related to recent subarachnoid hemorrhage. Would monitor closely. 3. Avoid anti-platelet and anticoagulation therapy. 4. I likely recommend conservative therapy given recent subarachnoid hemorrhage for elevated troponin. Job ID: [id number]
--- NOTE | 2019-07-22 07:58 | PRG ---
DATE OF SERVICE: 07/22/2019 SUBJECTIVE: The patient was successfully extubated yesterday, seems to be doing fairly well. OBJECTIVE: VITAL SIGNS: Temperature 99.2, pulse 61, blood pressure 131/70, O2 saturation 93%. HEENT: Unremarkable. NECK: No adenopathy or JVD. CHEST: Clear anteriorly. CARDIAC: S1 and S2. Regular. ABDOMEN: Soft. EXTREMITIES: No edema. NEUROLOGIC: She moves all 4 extremities. LABORATORY DATA: White blood cell count 17.8, hematocrit 30, and platelet count 171. Sodium 140, potassium 3.3, chloride 110, CO2 of 25, BUN 9, creatinine 0.6, glucose 119. ASSESSMENT: 1. Subarachnoid hemorrhage from aneurysmal bleed. 2. Status post respiratory failure requiring mechanical ventilation. PLAN: 1. The patient will remain in the ICU for treatment with Levophed for potential vasospasm, also nimodipine. 2. Up in chair as tolerated. 3. Initiate tube feeds, if she does not pass swallowing study. We will continue to follow. Job ID: [id number]
--- NOTE | 2019-07-22 09:30 | PRG ---
DATE OF SERVICE: 07/22/2019 The patient is now day 2, status post coiling of her intracranial aneurysm. She was also extubated yesterday by Critical Care. She continues to require Levophed for hypotension, particularly when given nimotop. Her EVD continues to be working appropriately. Speech therapy is at the bedside and they plan to do a swallow eval today. She has been more alert, talking and moving all 4s. On exam this morning, she opens her eyes easily to voice. Her pupils are equal and reactive. She is able to tell me her name. She is moving all 4s, but is slightly weaker on the left side when compared to the right. The patient's neurologic status has improved significantly. We will go ahead and raise her EVD settings to open at 20 cm of water. She will get a speech eval today. We will also begin to work with PT and OT and I have discussed with case management to begin initiating need for rehabilitation at some point. We will go ahead and change her systolic blood pressure settings with a systolic blood pressure goal of 100 to 180. We will continue to monitor her neurologic status closely. Job ID: [id number] MTDD
[2019-07-22] MEDS: Famotidine/PF 20 mg/2ml Vial SLOW IVP SCH ×2 (10:43→21:07)
[2019-07-22] MEDS: Potassium Chloride 40 MEQ in Premix Bag 1 BAG IVPB PRN (10:43)
[2019-07-22] MEDS: Lactated Ringer's 1,000 ML IV SCH (15:49)
[2019-07-23] MEDS: niMODipine 30 MG CAP PO SCH ×7 (00:31→23:54)
[2019-07-23 04:26] LABS: #Lymphocytes 1.5 thou/uL (1.20-3.40); #Monocytes 1.5 thou/uL (0.11-0.59); #Neutrophils 12.2 thou/uL (1.40-6.50); %Basophils 0.3 % (0.0-1.0); %Eosinophils 0.2 % (0.0-10.0); %Lymphocytes 9.6 % (21.0-51.0); %Monocytes 9.8 % (0.0-10.0); %Neutrophils 80.1 % (42.0-75.0); Mean Corpuscular Hemoglobin 31.8 pg (27.0-31.0); Mean Corpuscular Volume 96.2 fL (78.0-98.0); Mean Platelet Volume 9.7 fL (7.4-10.4); Platelet Count 186 thou/uL (130-400); RBC Distribution Width 12.6 % (11.5-14.5); Red Blood Cell (RBC) Count 3.14 mill/uL (4.20-5.40); White Blood Cell (WBC) Count 15.2 thou/uL (4.8-10.8)
[2019-07-23 04:38] LABS: Anion Gap 5 mmol/L (10-20); BUN (Urea Nitrogen) 12 mg/dL (9.8-20.1); Calc. Creatinine Clearance 96 mL/min (70-130); Calcium 8.2 mg/dL (7.8-10.44); Carbon Dioxide 28 mmol/L (23-31); Chloride 109 mmol/L (98-107); Estimated GFR-MDRD Greater than 90; Glucose 135 mg/dL (80-115); Potassium 3.2 mmol/L (3.5-5.1); Sodium 139 mmol/L (136-145)
[2019-07-23] MEDS: Lactated Ringer's 1,000 ML IV SCH ×3 (05:16→21:33)
[2019-07-23] MEDS: CEFAZOLIN 1 GM in Sodium Chloride 0.9% 100 ML IVPB SCH ×3 (05:18→21:18)
[2019-07-23] MEDS: Potassium Chloride 40 MEQ in Premix Bag 1 BAG IVPB PRN (06:01)
--- NOTE | 2019-07-23 07:42 | PRG ---
DATE OF SERVICE: SUBJECTIVE: This is a followup on this unfortunate 68-year-old female, who suffered a subarachnoid hemorrhage due to aneurysm formation. She is being seen this morning. We were asked to see her due to bradycardia. Her heart rate has remained in the 50s to 70s. Did not see any significant bradycardia. When agitated, she will have heart rates in the 70s to 80s. She does follow some commands, was difficult to use the left side. She has been evaluated by Neurology already this morning. She does have some neurological deficits. OBJECTIVE: VITAL SIGNS: Her vital signs are stable. Blood pressure is 132/70, heart rate at this time is 82, respiratory rate 17. She is afebrile. Blood pressure is stable, has been stable throughout the night as well as her heart rate. She has had no other significant changes. CHEST: She does have some coarse upper airway noise, but otherwise lungs appear to be clear. CARDIOVASCULAR: Shows a regular rate and rhythm. ABDOMEN: Soft and nontender. Positive bowel sounds are present. EXTREMITIES: Showed no edema. NEUROLOGIC: Please refer to the notes by the neurologist. LABORATORY DATA: Shows WBC of 15.2, hemoglobin was 10, platelet count is 186,000. Her sodium is 130, potassium is 3.2. Her BUN is 12 with a creatinine of 0.6. Blood sugar is 135. She did have elevated cardiac enzymes earlier, but this is a reflection most likely of her neurological abnormality or the insult that she suffered. IMPRESSION: 1. Elderly female, status post subarachnoid hemorrhage due to aneurysm rupture. This is being dealt with by the neurologist. 2. Bradycardia. This appears to have resolved, and it is most likely was secondary to the insult from subarachnoid hemorrhage. 3. Elevated cardiac enzymes, which also is due to the neurological abnormality that occurred or insult that occurred. 4. Hypertension. This is under good control at this time. 5. History of tobacco abuse. Obviously, however, she will never smoke again and at this time from a cardiac standpoint, she remains stable. No indication for pacemaker. Blood pressure remains stable. Heart rate remains stable. We will continue to monitor her. We have reviewed her medications. Again, would hold any sort of beta blockers unless the heart rate increases or she develops atrial fibrillation. She may have underlying sick sinus syndrome, but I would imagine that the bradycardia was due to the neurological insult. Job ID: [id number]
--- NOTE | 2019-07-23 08:00 | PRG ---
DATE OF SERVICE: 07/23/2019 I saw Ms. Schuler in our ICU room. Her drain is open at 20 cm of water. No events were reported overnight. Solids and subarachnoid hemorrhage day #5 now, post coiling day #3. Her vitals have been stable. On examination, Ms. Schuler opens her eyes to loud voice. She follows commands well on the right. She has significant weakness on the left. There is minimal withdrawal on that side. The drain is functioning well. The plan is to clamp her drain today. We will monitor the ICP. If it goes above 20 mmHg for over 20 minutes, then nursing will call us. Likely, we will drain 10 mL of CSF and re-clamp it. A CT scan will be done today and tomorrow morning. If she goes 24 hours without CSF drainage and there is no significant increase in the ventricular size on her serial CT scans, we can think about drain removal tomorrow. In the meantime, we will continue to watch for other complications of subarachnoid hemorrhage like this delayed ischemic neurological deficits, hyponatremia, pulmonary edema, cardiac arrhythmias, seizures. Job ID: [id number] MTDD
[2019-07-23] MEDS: Famotidine/PF 20 mg/2ml Vial SLOW IVP SCH ×2 (08:09→19:40)
--- NOTE | 2019-07-23 08:47 | CT ---
Head CT without contrast 07/23/2019: COMPARISON: 07/20/2019 HISTORY: Intracranial hemorrhage, ventriculostomy tube TECHNIQUE: Axial CT imaging at 5 mm intervals from vertex through skull base without contrast FINDINGS: The visualized paranasal sinuses and mastoid air cells are well aerated. No displaced marleny rial fracture. There is a punctate focus of pneumocephalus anterior to the right frontal lobe, decreased in volume when compared to prior imaging. There is a coil mass at the skull base on the rig ht consistent with coil embolization of right ICA aneurysm. Ventriculostomy tube present, inserted via a right frontal approach, distal tip in a stable position along the superior margin of the midbrain/cerebral peduncle on the left. There is hypodensity within the superior aspect of the cerebellum/vermis bilaterally, worsened when compared to 07/20/2019 , suggesting edema which could be related to infarction. There is stable configuration of the ventricular system when compared to the 07/20/2019 examination. No ventriculomegaly present on this e xam. Scattered areas of subarachnoid hemorrhage are noted, including bilateral sylvian fissures, bilateral frontal lobes, and suprasellar cistern. There is mass effect with lack of normal CSF at the level of the suprasellar cistern which may reflect edema and/or obscuration by subarachnoid blood. IMPRESSION: No significant interval change in diffuse subarachnoid hemorrhage. Stable ventriculostomy tube. Worsening hypodensity involving the cerebellar vermis suggesting edema, which may be on the basis of infarction.
[2019-07-23] MEDS: Norepinephrine 8 MG in Dextrose 5% in Water 242 ML IVPB PRN (10:15)
[2019-07-23] MEDS: Scopolamine 1.5 mg/72 hour Patch TD SCH (13:29)
--- NOTE | 2019-07-23 17:58 | PRG ---
DATE OF SERVICE: 07/23/2019 SUBJECTIVE: Brittney Schuler remains in the critical care unit. She continues with CSF drainage. Neurosurgery clamped her drain today. OBJECTIVE: VITAL SIGNS: Have been stable. LUNGS: Clear. HEART: Regular rhythm. ABDOMEN: Soft and nontender. EXTREMITIES: Without edema. She does have asymmetric strength. PLAN: Continue supportive care per Neurosurgery. She is tentatively scheduled for another CT tomorrow. We will continue to follow. Job ID: [id number]
[2019-07-24] MEDS: niMODipine 30 MG CAP PO SCH ×5 (05:27→21:42)
[2019-07-24] MEDS: CEFAZOLIN 1 GM in Sodium Chloride 0.9% 100 ML IVPB SCH ×3 (05:28→21:50)
[2019-07-24 05:47] LABS: #Lymphocytes 1.4 thou/uL (1.20-3.40); #Monocytes 1.3 thou/uL (0.11-0.59); #Neutrophils 9.2 thou/uL (1.40-6.50); %Basophils 0.3 % (0.0-1.0); %Eosinophils 0.3 % (0.0-10.0); %Lymphocytes 11.4 % (21.0-51.0); %Monocytes 11.1 % (0.0-10.0); Hemoglobin 9.5 g/dL (12.0-16.0); Mean Corpuscular HGB CONC 33.8 g/dL (32.0-36.0); Mean Corpuscular Hemoglobin 32.7 pg (27.0-31.0); Mean Corpuscular Volume 96.6 fL (78.0-98.0); Platelet Count 176 thou/uL (130-400); RBC Distribution Width 12.6 % (11.5-14.5); Red Blood Cell (RBC) Count 2.91 mill/uL (4.20-5.40); White Blood Cell (WBC) Count 11.9 thou/uL (4.8-10.8)
[2019-07-24] MEDS: Potassium Chloride 40 MEQ in Premix Bag 1 BAG IVPB PRN (05:54)
[2019-07-24 06:08] LABS: Anion Gap 8 mmol/L (10-20); BUN (Urea Nitrogen) 11 mg/dL (9.8-20.1); Calc. Creatinine Clearance 104 mL/min (70-130); Calcium 7.7 mg/dL (7.8-10.44); Carbon Dioxide 25 mmol/L (23-31); Chloride 109 mmol/L (98-107); Estimated GFR-MDRD Greater than 90; Glucose 112 mg/dL (80-115); Potassium 3.4 mmol/L (3.5-5.1); Sodium 139 mmol/L (136-145)
--- NOTE | 2019-07-24 07:43 | CT ---
PRELIMINARY REPORT/[facility]/EMERGENCY AFTER HOURS PROCEDURE PROCEDURE INFORMATION: Exam: CT Head Without Contrast Exam date and time: 07/24/2019 4:35 AM Age: 68 years old Clinical history: Condition or disease; Patient HX: Sah f/u TECHNIQUE: Imaging protocol: Computed tomography of the head without contrast. COMPARISON: CT Brain WO Con 07/20/2019 4:44 AM FINDINGS: Tubes, catheters and devices: Right frontal approach [employer] shunt catheter again noted , tip terminating slightly left of midline after passing through the third ventricle. Brain: No acute infarct. Decrease in bilateral subarachnoid hemorrhage. No new hemorrhage. Increase i n low attenuation right extra-axial collection consistent with hygroma measuring up to 7 mm in transv erse dimension. Left extra-axial collection has decreased. Aneurysm coils again noted suprasellar reg ion. Ventricles: No ventriculomegaly. Bones/joints: Unremarkable. No acute fracture. Sinuses: Visualized sinuses are unremarkable. No fluid levels. Mastoid air cells: Visualized mastoid air cells are well aerated. Soft tissues: Unremarkable. IMPRESSION: -No new hemorrhage -No shift or hydrocephalus. -Decrease in subarachnoid hemorrhage. -Increase in low attenuation right extra-axial collection consistent with hygroma measuring up to 7 m m in transverse dimension. -Left extra-axial collection has decreased. Thank you for allowing us to participate in the care of your patient. Dictated and Authenticated by: Gisel Cuba MD 07/24/2019 4:50 AM Central Time ([place] & [place]) FINAL REPORT CT HEAD WITHOUT CONTRAST: 07/24/2019 HISTORY: Re-evaluate subarachnoid hemorrhage. COMPARISON: 07/23/2019 FINDINGS: I agree with the preliminary report. The mildly prominent hypodense subdural collection in the right frontal region may signify hygroma. T here is scattered subarachnoid blood in the sylvian fissures and supratentorial region bilaterally, g rossly unchanged. Similar nonspecific hypodensity noted within the cerebellum, superiorly and anterio rly, in the region of the vermis bilaterally. Stable ventriculostomy tube and embolization coils. No new hemorrhage. No significant interval change. IMPRESSION: No significant interval change as detailed above. CODE QA POS: [facility]
--- NOTE | 2019-07-24 08:24 | PRG ---
DATE OF SERVICE: 07/24/2019 Ms. Schuler is subarachnoid hemorrhage day 6, post coiling day 4 for aneurysmal subarachnoid hemorrhage. She has had an EVD in place, but it has been clamped for the last 24 hours and there has been no need to open it. A followup CT scan was done this morning. No other events were recorded overnight. On examination, Ms. Schuler opens her eyes to voice. She follows commands. The left arm is weaker than the right. She says a word or two in a soft voice and those words are appropriate. Her white blood cell count is coming down. It is 11.9. The sodium is 139. This morning CT scan does not show any increase in the ventricular size in spite of being clamped for 24 hours. We removed the drain today. We will continue to monitor her neurological progress. We will get daily sodiums and white blood cell count and begin the process of rehabilitation. Job ID: [id number] MTDD
[2019-07-24] MEDS: Famotidine/PF 20 mg/2ml Vial SLOW IVP SCH ×2 (09:34→21:42)
[2019-07-24] MEDS: Lactated Ringer's 1,000 ML IV SCH (11:45)
--- NOTE | 2019-07-24 13:31 | EKG ---
Test Reason : STAT Blood Pressure : / mmHG Vent. Rate : 054 BPM Atrial Rate : 054 BPM P-R Int : 154 ms QRS Dur : 072 ms QT Int : 474 ms P-R-T Axes : 080 074 080 degrees QTc Int : 449 ms Sinus bradycardia Septal infarct , age undetermined Abnormal ECG No previous ECGs available Confirmed by KILEY CORNELIUS (2) on 07/24/2019 1:30:57 PM Referred By: ANABELLA Confirmed By:KILEY CORNELIUS
--- NOTE | 2019-07-24 21:13 | PRG ---
DATE OF SERVICE: 07/24/2019 SUBJECTIVE: Brittney Schuler appears to be improving. I met with her and answered all his questions. She sat up in the chair for 3 hours this morning. OBJECTIVE: VITAL SIGNS: Have been stable. Oximetry is 96% on room air, blood pressure 128/59, heart rate is in the 90s, and respiratory rate is in the 20s. LUNGS: Clear. HEART: Regular rhythm. ABDOMEN: Soft. EXTREMITIES: Without asymmetry. She still has a gastric tube in place. LABORATORY DATA: White count is 11.9, hemoglobin 9.5, and platelets 176,000. Sodium 139, potassium 3.4, chloride 109, bicarb 25, BUN 11, and creatinine 0.55. Her drain has been removed. IMPRESSION: 1. Subarachnoid bleed, clinically stable now status post removal of her drain. 2. Swallowing dysfunction. She may end up needing a PEG, but at this point in time, she is adequately protecting her airway and tolerating her feeds, although I do not think she needs 2000 plus calories a day. I would estimate her caloric needs to be 1200 to 1400 calories per day. We need to avoid overfeeding. We need to avoid the risk of aspiration associated with that. At this point in time, we will continue to follow. Job ID: [id number]
[2019-07-25] MEDS: niMODipine 30 MG CAP PO SCH ×6 (01:45→20:56)
[2019-07-25] MEDS: Lactated Ringer's 1,000 ML IV SCH (03:52)
[2019-07-25 04:49] LABS: #Eosinphils 0.1 thou/uL (0.0-0.7); #Lymphocytes 1.4 thou/uL (1.20-3.40); #Monocytes 1.7 thou/uL (0.11-0.59); #Neutrophils 10.2 thou/uL (1.40-6.50); %Basophils 0.1 % (0.0-1.0); %Eosinophils 0.5 % (0.0-10.0); %Lymphocytes 10.7 % (21.0-51.0); %Monocytes 12.7 % (0.0-10.0); Mean Corpuscular HGB CONC 33.6 g/dL (32.0-36.0); Mean Corpuscular Hemoglobin 32.8 pg (27.0-31.0); Mean Corpuscular Volume 97.6 fL (78.0-98.0); Mean Platelet Volume 9.7 fL (7.4-10.4); Platelet Count 207 thou/uL (130-400); RBC Distribution Width 12.8 % (11.5-14.5); Red Blood Cell (RBC) Count 3.04 mill/uL (4.20-5.40); White Blood Cell (WBC) Count 13.5 thou/uL (4.8-10.8)
[2019-07-25 05:04] LABS: Anion Gap 11 mmol/L (10-20); BUN (Urea Nitrogen) 10 mg/dL (9.8-20.1); Calc. Creatinine Clearance 97 mL/min (70-130); Calcium 8.2 mg/dL (7.8-10.44); Carbon Dioxide 24 mmol/L (23-31); Chloride 104 mmol/L (98-107); Estimated GFR-MDRD Greater than 90; Glucose 118 mg/dL (80-115); Potassium 3.5 mmol/L (3.5-5.1); Sodium 135 mmol/L (136-145)
[2019-07-25] MEDS: CEFAZOLIN 1 GM in Sodium Chloride 0.9% 100 ML IVPB SCH (05:44)
--- NOTE | 2019-07-25 08:09 | PRG ---
DATE OF SERVICE: 07/25/2019 SUBJECTIVE: Patient is doing okay aside from difficulty swallowing. OBJECTIVE: VITAL SIGNS: Temperature 98.5, pulse 75, blood pressure 130/60, O2 saturation 94%. She is currently off the Levophed. Intake for 24 hours 3368, output 2815. HEENT: Unremarkable except for the NG tube in place. NECK: No adenopathy or JVD. LUNGS: She has a very fine end expiratory wheeze. CARDIOVASCULAR: S1, S2. Regular. ABDOMEN: Soft. EXTREMITIES: No edema. LABORATORY DATA: White blood cell count 13.5, hematocrit 29.7, and platelet count 207. Sodium 135, potassium 3.5, chloride 104, CO2 of 24, BUN 10, creatinine 0.5, glucose 118. ASSESSMENT: 1. Status post subarachnoid hemorrhage from aneurysmal bleed. 2. No evidence of vasospasm. 3. Swallowing dysfunction. 4. Probable some degree of chronic obstructive pulmonary disease. PLAN: 1. I will go ahead and stop her IV fluids since she is receiving enteral tube feeds. She can be transferred to the stroke floor from my standpoint. I would probably give her a few more days to see if her swallowing improves before performing a PEG tube. 2. I will add Nebs that she can take on a p.r.n. basis. Job ID: [id number]
[2019-07-25] MEDS: Famotidine/PF 20 mg/2ml Vial SLOW IVP SCH ×2 (08:12→20:56)
--- NOTE | 2019-07-25 08:22 | PRG ---
DATE OF SERVICE: 07/25/2019 SUBJECTIVE: The patient is a 68-year-old female, status post acute subarachnoid aneurysmal hemorrhage status post coiling day #5. Her EVD was weaned over the weekend and was removed yesterday. She had no events overnight. Her neurologic exam continues to improve slowly. She is no longer requiring Levophed. On Thursday, she did have an attempted swallow study, which she failed at that time. She has worked with PT and OT and sat some in the chair over the weekend. OBJECTIVE: On exam this morning, patient opens her eyes to voice. Her pupils are small, equal, and reactive. She is following commands. She is stronger on the right than the left, but is moving all 4s appropriately. She is able to tell me her name. Her white count is 13.5 today and sodium is 139. We will continue to monitor these labs closely. We will also continue to slowly mobilize with the assistance of PT and OT. She should get a repeat swallow study today and if she fails again, she may require consideration of a PEG tube. I have discussed the plan with Case Management and they are also working for eventual placement for rehabilitation- plans for swing bed in [place] at some point. Job ID: [id number] [facility]
[2019-07-25] MEDS: Bisacodyl 10 MG SUPP PR PRN (12:51)
[2019-07-25] MEDS: Milk Of Magnesia 30 ML UDCUP PO PRN (12:51)
[2019-07-26] MEDS: niMODipine 30 MG CAP PO SCH ×6 (00:16→21:07)
[2019-07-26 04:54] LABS: Anion Gap 9 mmol/L (10-20); BUN (Urea Nitrogen) 15 mg/dL (9.8-20.1); Calc. Creatinine Clearance 96 mL/min (70-130); Calcium 8.4 mg/dL (7.8-10.44); Carbon Dioxide 26 mmol/L (23-31); Chloride 103 mmol/L (98-107); Estimated GFR-MDRD Greater than 90; Glucose 134 mg/dL (80-115); Potassium 3.9 mmol/L (3.5-5.1); Sodium 134 mmol/L (136-145)
--- NOTE | 2019-07-26 06:42 | PRG ---
DATE OF SERVICE: 07/26/2019 The patient is a 68-year-old female, who is status post acute subarachnoid hemorrhage status post coiling day #6. She has had no overnight events. Her neurologic exam remains stable. The Speech did attempt a swallow study again yesterday and unfortunately, the patient failed again. On exam this morning, the patient awakens easily to my voice. She opens eyes. Pupils are equal and reactive. She is moving all 4s. She is stronger on the right than the left. She is following commands. She is able to tell me her name this morning. The patient's neurologic exam continues to remain stable. We agree that she is appropriate for transfer to the Stroke Unit. Will do another swallow eval tomorrow. If fails then will consult for peg. Job ID: [id number] [facility]
--- NOTE | 2019-07-26 08:50 | PRG ---
DATE OF SERVICE: 07/26/2019 SUBJECTIVE: She remains in the critical care unit. She has done well overnight, has no acute complaints. OBJECTIVE: VITAL SIGNS: Temperature 98.5, pulse 73, blood pressure 104/76, and O2 saturation 99%. HEENT: Unremarkable except NG tube in place. NECK: No adenopathy or JVD. CHEST: Clear. CARDIAC: S1 and S2, regular. ABDOMEN: Soft. EXTREMITIES: No edema. LABORATORY DATA: Sodium 134, potassium 3.9, chloride 103, CO2 of 26, BUN 15, creatinine 0.6, and glucose 134. ASSESSMENT: 1. Subarachnoid hemorrhage from aneurysmal bleeding. 2. Oropharyngeal dysphagia after subarachnoid hemorrhage. PLAN: 1. Transfer out to the stroke floor. 2. If swallowing does not improve in the next several days, then probably will need a PEG tube. 3. Continue p.r.n. nebs. 4. Care from this point forward will be primarily from the Neurosurgical team and Family Medicine. Job ID: [id number]
[2019-07-26] MEDS: Famotidine/PF 20 mg/2ml Vial SLOW IVP SCH ×2 (08:53→21:05)
[2019-07-26] MEDS: Sodium Chloride 0.9% 1,000 ML IV SCH (11:16)
--- NOTE | 2019-07-26 11:51 | PRG ---
DATE OF SERVICE: 07/26/2019 Ms. Schuler is doing reasonably well. She is up in a chair and interactive. She has cranial neuropathies including dysfunctional in extraocular movement, hoarse voice, and dysphagia. These are undoubtedly the result of the initial hemorrhage. We will transfer to the stroke floor when a bed is available. I will reinstitute her IV fluids if she remains at risk of vasospasm and has not been able have any oral intake. We will try a swallow eval again tomorrow and if she fails this, we will proceed with PEG. Job ID: [id number]
[2019-07-26] MEDS: Scopolamine 1.5 mg/72 hour Patch TD SCH (12:36)
[2019-07-26] MEDS ORDERED: Acetaminophen 650 MG in Premix Bag 1 BAG IVPB PRN (18:33)
[2019-07-27] MEDS: niMODipine 30 MG CAP PO SCH ×6 (01:09→21:08)
[2019-07-27] MEDS: Sodium Chloride 0.9% 1,000 ML IV SCH ×2 (01:20→15:39)
[2019-07-27 05:48] LABS: Anion Gap 8 mmol/L (10-20); BUN (Urea Nitrogen) 14 mg/dL (9.8-20.1); Calc. Creatinine Clearance 96 mL/min (70-130); Calcium 8.2 mg/dL (7.8-10.44); Carbon Dioxide 25 mmol/L (23-31); Chloride 102 mmol/L (98-107); Estimated GFR-MDRD Greater than 90; Glucose 110 mg/dL (80-115); Potassium 4.1 mmol/L (3.5-5.1); Sodium 131 mmol/L (136-145)
--- NOTE | 2019-07-27 09:53 | PRG ---
DATE OF SERVICE: 07/27/2019 SUBJECTIVE: She has verbal. She moves all 4 extremities. She seems no different than the last 2 days. OBJECTIVE: VITAL SIGNS: Temperature 99.2, pulse 71, respirations 24, O2 sat 95% on room air, and blood pressure 127/81. HEENT: Unchanged. NECK: No adenopathy or JVD. LUNGS: Clear. CARDIAC: S1 and S2. Regular. ABDOMEN: Soft. EXTREMITIES: No edema. LABORATORY DATA: Sodium 131, potassium 4.1, chloride 102, CO2 of 25, BUN 14, creatinine 0.6, and glucose 110. ASSESSMENT: 1. Status post aneurysmal bleed. 2. Swallowing dysfunction, past aneurysmal bleed. PLAN: The patient is likely to need a PEG tube next week if we do not see improvement in swallowing by then. No further Pulmonary recommendations at this time. I will check her again on Thursday. Job ID: [id number]
--- NOTE | 2019-07-27 09:56 | PRG ---
DATE OF SERVICE: 07/27/2019 SUBJECTIVE: The patient had no overnight events last night. She has been stable on the stroke floor. She did fail additional swallow study earlier this week; however, Speech Pathology has plans for barium swallow sometime later today. OBJECTIVE: On my exam, the patient awakens easily. She opens her eyes. She has difficulty tracking. Pupils are equal and reactive to light. She is able to tell me her name. She is moving all 4's, but is stronger on the right. Neurologic exam is stable. We will await results of additional swallow study plan today. If fails, she would ultimately require PEG. I will make appropriate consults at that time. We will follow up these results closely. Job ID: [id number]
[2019-07-27] MEDS: Famotidine/PF 20 mg/2ml Vial SLOW IVP SCH ×2 (10:13→21:08)
[2019-07-27] MEDS ORDERED: Acetaminophen 650 MG/20.3 ML UDCUP PO PRN (10:52)
--- NOTE | 2019-07-27 11:34 | RAD ---
Modified barium swallow HISTORY: Dysphagia. Following cerebral infarction. Feeding difficulties. FINDINGS: Exam was performed in conjunction with speech pathology. Multiple consistencies. Video revi ew is available and demonstrates early spill of contrast. Aspiration was evident on an initial swallow of thin barium liquid. Spontaneous coughing by the patient with partial clearing. With other consistencies, there was penetration and significant residua. Moderate clearing upon secon ned swallowing. Penetration was decreased with chin tuck during swallowing. Nasogastric tube is in place. The esophagus below the level of the hypopharynx was not evaluated. Fluoroscopy time 1.9 minutes. Please see separate detailed report from speech pathology.
[2019-07-28] MEDS: Acetaminophen 650 MG/20.3 ML UDCUP PER TUBE PRN (00:47)
[2019-07-28] MEDS: niMODipine 30 MG CAP PO SCH ×6 (02:08→20:27)
[2019-07-28] MEDS: Sodium Chloride 0.9% 1,000 ML IV SCH ×2 (05:03→20:26)
[2019-07-28 05:36] LABS: Anion Gap 6 mmol/L (10-20); BUN (Urea Nitrogen) 13 mg/dL (9.8-20.1); Calc. Creatinine Clearance 91 mL/min (70-130); Calcium 7.9 mg/dL (7.8-10.44); Carbon Dioxide 27 mmol/L (23-31); Chloride 99 mmol/L (98-107); Estimated GFR-MDRD Greater than 90; Glucose 126 mg/dL (80-115); Potassium 3.9 mmol/L (3.5-5.1); Sodium 128 mmol/L (136-145)
[2019-07-28] MEDS: Famotidine/PF 20 mg/2ml Vial SLOW IVP SCH ×2 (08:40→20:26)
--- NOTE | 2019-07-28 08:59 | PRG ---
DATE OF SERVICE: 07/28/2019 The patient is now 9 days out from acute subarachnoid hemorrhage. She has been transitioned to the stroke floor following the weaning of her EVD. Overnight, she has had no events. She has had several swallow studies and failed each time. On exam this morning, the patient is resting comfortably, but she will wake with some minimal stimulation. She will open her eyes and tell me her name. She is moving all 4s and following commands. She is much stronger on the right than the left. Her pupils are equal and reactive, but she has some ocular dysfunction, which is persistent. Neurologically, she remains stable. No overnight events. She has been made n.p.o. at midnight and there are plans for PEG placement by Dr. Quintana tomorrow. Following the PEG, if she tolerates this well, we may be able to transition her to rehab at some point. Job ID: [id number]
--- NOTE | 2019-07-28 12:00 | CON ---
DATE OF CONSULTATION: HISTORY OF PRESENT ILLNESS: Ms. Schuler came in on the with a stroke. I have been asked to see her about putting a feeding tube in. Apparently, she was not on any history of previous medicines. She had been having some pretty bad headaches and maybe some visual changes when she was at home, had a witnessed syncopal episode by her . She states that she started CPR wrong. The patient apparently coded en route and was intubated and had a CAT scan that showed subarachnoid hemorrhage. Apparently, this is felt to be related to an aneurysm. The patient was seen by Neurosurgery and Critical Care. She has been getting tube feeds. Ultimately, she was weaned from the ventilator. She performed poorly on a swallow study, today I asked to see her with regard to placing a PEG tube. PAST MEDICAL HISTORY: Hepatitis C possibly resolved per the family, suspected COPD, prior history of pneumothorax per the . PAST SURGICAL HISTORY: EGD and cervical conization for abnormal Pap smear. SOCIAL HISTORY: 50 pack-year smoker at least, quit smoking in 2017. Occasionally, she smokes cigar and marijuana now. Drinks alcohol rarely. ALLERGIES: CODEINE. FAMILY HISTORY: Noncontributory. REVIEW OF SYSTEMS: Cannot obtain. The patient did not give any history . PRESENT MEDICATIONS: 1. Tylenol Elixir. 2. DuoNeb. 3. Pepcid. 4. Milk of magnesia. 5. . 6. Zofran p.r.n. 7. Scopolamine patch. 8. Normal saline 75 an hour. 9. an hour. PHYSICAL EXAMINATION: VITAL SIGNS: Temperature is 98.7, T-max 100.2 on 07/24, pulse 67, and blood pressure 120/67. LUNGS: Clear. HEART: Regular rhythm. ABDOMEN: Soft and nontender. NEUROLOGIC: She mumbles a little bit. Opens her eyes with stimulation. LABORATORY DATA: Labs on the , her white count was 13.5, hemoglobin is 10.0, and platelets are 207. INR was 1.1 on the . Sodium 134, potassium 3.9, BUN and creatinine of 15 and 0.61 on 07/26. Liver function tests were normal on admission with albumin 3.5 and protein of 6. AST and ALT of 18 and 11, TSH was 13. Most recent CT on 07/24/2019 showed no new hemorrhage. ASSESSMENT: Intracranial hemorrhage secondary to aneurysm. Still the patient could not swallow, over a week. Neurosurgery PA requested consult today for a percutaneous endoscopic gastrostomy and Pulmonary/Critical Care until next week if I do not see any improvement in place PLAN: It looks like she is going to need a PEG and wants to carry on with that. He wants to continue with enteral feeding. I told him we could place that Thursday if she remained stable. Presently, she is on tube feeds. There is no urgency to this. I will plan for that tentatively. I have discussed risks, benefits, and possible complications including perforation, bleeding, reaction to medication, aspiration, and infection. He understands and he wished to proceed. We will re-evaluate her Thursday morning to see how she is doing. If she has improvement, may hold off. Also, we will talk with Dr. Olea of Pulmonary before proceeding. If he thinks there is a significant chance that she can have some improvement, then we may await a little bit longer as she has adequate feeding method now with NG tube in place. Job ID: [id number]
[2019-07-29] MEDS: niMODipine 30 MG CAP PO SCH ×6 (01:56→20:49)
[2019-07-29 05:41] LABS: Anion Gap 9 mmol/L (10-20); BUN (Urea Nitrogen) 12 mg/dL (9.8-20.1); Calc. Creatinine Clearance 91 mL/min (70-130); Carbon Dioxide 25 mmol/L (23-31); Chloride 97 mmol/L (98-107); Estimated GFR-MDRD Greater than 90; Glucose 109 mg/dL (80-115); Potassium 4.3 mmol/L (3.5-5.1); Sodium 127 mmol/L (136-145)
[2019-07-29] MEDS ORDERED: Ketamine 50 MG/ML (10ML VIAL) ONE (07:26)
--- NOTE | 2019-07-29 08:38 | PRG ---
DATE OF SERVICE: 07/29/2019 The patient is a 68-year-old female, status post acute aneurysmal subarachnoid hemorrhage, which was coiled by Dr. Swain, recently transitioned to the Stroke Unit. She has failed several swallow studies in her plans for PEG tube placement today. Unfortunately, during my rounds today, she is currently down in the OR, getting the PEG placed. I did do a chart review, which is notable for a temperature of 100.3 overnight as well as development of some hyponatremia at 127. No reported events by the nursing staff. We will ask the Family Medicine Team to consult again with regard to her new hyponatremia and fever. I have sent a new CBC, blood cultures, chest x-ray, UA, and urine cultures. We appreciate their assistance in management of this patient's ongoing care. Job ID: [id number]
[2019-07-29] MEDS ORDERED: Promethazine HCl 25 MG/ML VIAL SLOW IVP PRN (09:05)
[2019-07-29] MEDS ORDERED: Ondansetron HCl/PF 4 MG/2 ML Vial IVP PRN (09:05)
[2019-07-29] MEDS ORDERED: Promethazine HCl 25 MG/ML VIAL IM PRN (09:05)
--- NOTE | 2019-07-29 09:15 | RAD ---
Portable chest: HISTORY: Fever COMPARISON: 07/21/2019 FINDINGS: Lung yan are clear. Calcified granuloma in the left lung again noted. Heart and mediasti num appear unremarkable. Vascularity is normal. Visualized osseous structures unremarkable. ET tube and NG tube have been removed. IMPRESSION: No acute finding
--- NOTE | 2019-07-29 09:43 | OP ---
DATE OF PROCEDURE: 07/29/2019 PROCEDURE PERFORMED: Esophagogastroduodenoscopy with PEG tube placement. ANESTHESIA: TIVA, 2 g of Ancef given preoperatively. POSTPROCEDURE DIAGNOSES: 1. Mild reflux esophagitis, NG tube trauma. 2. Otherwise normal esophagogastroduodenoscopy. 3. Percutaneous endoscopic gastrostomy tube placement, Ponsky pull technique with good positioning noted on second-look. PROCEDURE IN DETAIL: The patient was informed of the risks, benefits, and possible complications of endoscopy including perforation, reaction to medication, aspiration. Informed consent was obtained. The patient was brought to the endoscopy suite, where she was sedated in gradual fashion. Once she was comfortable, a bite block was placed inside the orifice. Endoscope was advanced through the esophagus, stomach, and second and third portions of the duodenum. There was mild reflux esophagitis and NG tube trauma in the esophagus. The stomach was normal. The duodenum was normal to third portion. Forward and retroflexed views in the stomach were normal. Adequate placement for PEG tube placement was identified by transillumination and finger indentation on the abdominal wall. The PEG tube was then placed by Ponsky pull technique. Second-look confirmed good placement. The scope was removed. The patient tolerated the procedure well. No complications. Job ID: [id number]
[2019-07-29] MEDS: Sodium Chloride 0.9% 1,000 ML IV SCH (10:03)
[2019-07-29] MEDS ORDERED: Lidocaine 1% PF 5 ML VIAL ONE (10:22)
[2019-07-29] MEDS ORDERED: PROPOFOL 200 MG/20 ML VIAL ONE (10:22)
[2019-07-29] MEDS: Famotidine/PF 20 mg/2ml Vial SLOW IVP SCH ×2 (10:28→20:48)
[2019-07-29 11:10] LABS: Bacteria/HPF None Seen HPF (None Seen); Bilirubin Negative (Negative); Blood, Urine Trace (Negative); Clarity Clear (Clear); Glucose, Urine (Dipstick) Normal (Negative); Leukocyte Negative Leu/uL (Negative); Nitrite Negative (Negative); Protein, Urine (Dipstick) Negative (Neg-Trace); Squamous Epithelial None Seen HPF (0-3); Urobilinogen Normal mg/dL (Less than 2); WBC/HPF 0-3 HPF (0-3)
[2019-07-29 11:54] LABS: #Monocytes 1.7 thou/uL (0.11-0.59); #Neutrophils 10.4 thou/uL (1.40-6.50); %Basophils 0.3 % (0.0-1.0); %Eosinophils 0.2 % (0.0-10.0); %Lymphocytes 14.4 % (21.0-51.0); %Neutrophils 73.1 % (42.0-75.0); Hemoglobin 9.5 g/dL (12.0-16.0); Mean Corpuscular HGB CONC 33.9 g/dL (32.0-36.0); Mean Corpuscular Hemoglobin 32.6 pg (27.0-31.0); Mean Corpuscular Volume 96.4 fL (78.0-98.0); Mean Platelet Volume 8.5 fL (7.4-10.4); Platelet Count 333 thou/uL (130-400); RBC Distribution Width 12.3 % (11.5-14.5); Red Blood Cell (RBC) Count 2.92 mill/uL (4.20-5.40); White Blood Cell (WBC) Count 14.2 thou/uL (4.8-10.8)
[2019-07-29] MEDS: Scopolamine 1.5 mg/72 hour Patch TD SCH (13:29)
--- NOTE | 2019-07-29 14:28 | PRG ---
DATE OF SERVICE: 07/29/2019 SUBJECTIVE: The patient is feeling a little better. She had a PEG tube placed today. OBJECTIVE: VITAL SIGNS: Temperature 98.1, pulse 73, respirations 22, O2 saturations 96%. HEENT: Unremarkable. NECK: No adenopathy or JVD. CHEST: Clear to auscultation. CARDIAC: S1 and S2 regular. ABDOMEN: Soft. EXTREMITIES: No edema. LABORATORY DATA: White blood cell count 14.2, hematocrit 28.1, and platelet count 333. Sodium 127, potassium 4.3, chloride 97, CO2 of 25, BUN 12, creatinine 0.6, glucose 109. ASSESSMENT: 1. Status post subarachnoid hemorrhage. 2. 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 PLAN: I would suggest fluid restricting her from an IV standpoint once her tube feeds were established. Family Medicine has been consulted to deal with medical issues. No further Pulmonary recommendations. We will sign off. Job ID: [id number]
--- NOTE | 2019-07-29 16:13 | EKG ---
Test Reason : Blood Pressure : / mmHG Vent. Rate : 082 BPM Atrial Rate : 258 BPM P-R Int : 000 ms QRS Dur : 086 ms QT Int : 388 ms P-R-T Axes : 000 089 045 degrees QTc Int : 453 ms Atrial fibrillation Nonspecific ST abnormality , probably digitalis effect Abnormal ECG Confirmed by EVETTE REILLY, KELLY ([id number]), continuity editor YANELY KENDRICK ([id number]) on 07/29/2019 4:12:42 PM Referred By: Confirmed By:KELLY ALAS MD
--- NOTE | 2019-07-29 17:17 | PDOC.FM ---
- Subjective Subjective: Family Medicine team consulted for management of fever. Patient with temperature to 101.7 on night of 07/27. Temperature to 100.3F on night of . Patient was sound asleep when I went in to evaluate this afternoon. Primary team has already ordered CXR, UA, urine culture, and blood cultures at this time. I have also added on a flu swab. Patient did not appear to be in any respiratory distress. - Objective MAR Reviewed: Yes Vital Signs & Weight: Vital Signs (12 hours) Temp Pulse Pulse Pulse Pulse Resp BP 07/29/19 15:35 07/29/19 15:33 97.9 F 79 19 07/29/19 13:29 07/29/19 10:55 73 67 67 144/73 H 07/29/19 09:30 98.1 F 68 20 BP BP BP Pulse Ox 07/29/19 15:35 138/85 07/29/19 15:33 94 L 07/29/19 13:29 143/72 H 07/29/19 10:55 137/73 138/64 07/29/19 09:30 110/57 L 95 Weight Admit Weight 69.683 kg Weight 65.635 kg Most Recent Monitor Data Heart Rate from ECG 73 NIBP 137/62 NIBP BP-Mean 87 Respiration from ECG 21 SpO2 98 I&O: 07/28/19 07/29/19 07/30/19 06:59 06:59 06:59 Intake Total 1050 1959 30 Output Total 7310 8000 250 Balance -2570 -391 -220 Result Diagrams: 08/01/19 06:30 08/01/19 06:30 EKG Reviewed by me: No Radiology Reviewed by me: Yes Phys Exam - Physical Examination Sound asleep, difficult to wake Left sided facial droop HEENT: moist MMs Coarse upper airway sounds Cardiovascular: RRR No appreciable murmur Gastrointestinal: soft, non-tender, no distention Musculoskeletal: no edema, pulses present Unable to adequately assess due to patient status Dx/Plan (1) Fever of unknown origin Status: Acute (2) Brain aneurysm Status: Acute (3) SAH (subarachnoid hemorrhage) Code(s): I60.9 - NONTRAUMATIC SUBARACHNOID HEMORRHAGE, UNSPECIFIED Status: Acute (4) COPD (chronic obstructive pulmonary disease) Status: Chronic (5) Fibromyalgia Status: Acute (6) Hyponatremia Code(s): E87.1 - HYPO-OSMOLALITY AND HYPONATREMIA Status: Acute - Plan Plan: 68 year old female with recent SAH. Family Medicine team consulted regarding recurrent fever. Fever - Likely related to SAH; however, will initiate workup to include CXR, flu swab , UA, blood cultures, and urine cultures - Will hold off on antibiotics for now, as no obvious source of fever and only one documented night with temperature >100.4F - If necessary or patient continues to fever and suspicion arises for infection as source of fever, will initiate antibiotic therapy SAH - Managed by neurosurgery, primary team Hyponatremia - Likely related to recent SAH - Per Pulm, fluid restriction - Will continue to monitor with AM BMP Dispo: Stable. Will continue to follow. Addendum - Attending - Attending Attestation Date/Time: 08/05/19 3909 I personally evaluated the patient and discussed the management with Dr. Sunshine. I agree with the History, Examination, Assessment and Plan documented above with any addition or exceptions noted below.
[2019-07-30] MEDS: niMODipine 30 MG CAP PO SCH ×6 (01:05→20:16)
[2019-07-30] MEDS: Sodium Chloride 0.9% 1,000 ML IV SCH (01:06)
[2019-07-30 05:37] LABS: Anion Gap 10 mmol/L (10-20); BUN (Urea Nitrogen) 13 mg/dL (9.8-20.1); Calc. Creatinine Clearance 94 mL/min (70-130); Calcium 7.9 mg/dL (7.8-10.44); Carbon Dioxide 23 mmol/L (23-31); Chloride 95 mmol/L (98-107); Estimated GFR-MDRD Greater than 90; Glucose 132 mg/dL (80-115); Potassium 3.8 mmol/L (3.5-5.1); Sodium 124 mmol/L (136-145)
--- NOTE | 2019-07-30 06:10 | PDOC.FM ---
- Subjective Subjective: NAEO. Kelly barber'xiomara this AM. Patient resting comfortably in bed this AM. No pain or concerns. Patient states was able to sleep some. Speech is difficult to understand. - Objective MAR Reviewed: Yes Vital Signs & Weight: Vital Signs (12 hours) Temp Pulse Resp BP Pulse Ox 07/30/19 03:58 98.6 F 76 20 145/95 H 96 07/30/19 01:05 75 133/84 07/29/19 20:47 97.6 F 70 20 135/54 L 97 Weight Admit Weight 69.683 kg Weight 64.546 kg Most Recent Monitor Data Heart Rate from ECG 73 NIBP 137/62 NIBP BP-Mean 87 Respiration from ECG 21 SpO2 98 I&O: 07/28/19 07/29/19 07/30/19 06:59 06:59 06:59 Intake Total 1050 6579 756 Output Total 6490 6536 1600 Balance -2570 -391 -844 Result Diagrams: 07/29/19 11:36 07/30/19 04:46 Phys Exam - Physical Examination Constitutional: NAD HEENT: moist MMs, sclera anicteric Neck: supple, full ROM Respiratory: no wheezing, no rales, no rhonchi, clear to auscultation bilateral Cardiovascular: RRR, no significant murmur, no rub Gastrointestinal: soft, non-tender, no distention, positive bowel sounds Musculoskeletal: no edema Skin: no rash, normal turgor, cap refill <2 seconds Dx/Plan (1) Fever of unknown origin Status: Acute (2) SAH (subarachnoid hemorrhage) Code(s): I60.9 - NONTRAUMATIC SUBARACHNOID HEMORRHAGE, UNSPECIFIED Status: Acute - Plan Plan: 68 year old female with recent SAH. Family Medicine team consulted regarding recurrent fever. #Fever Likely related to SAH; however, workup initiated - see below. - Blood cx: NGTD, urine cx pending, Flu swab neg. UA neg. CXR no acute findings. - Will hold off on antibiotics for now, as no obvious source of fever and only one documented night with temperature >100.4F. - If necessary or patient continues to fever and suspicion arises for infection as source of fever, will initiate antibiotic therapy at that time. #SAH - Managed by neurosurgery, primary team #Hyponatremia Likely related to recent SAH. - Per Pulm, fluid restriction - Will continue to monitor Dispo: Stable. Will continue to follow. Case Discussed with Dr. Phillips Addendum - Attending - Attending Attestation Date/Time: 07/30/19 1522 I personally evaluated the patient and discussed the management with Dr. Shah. I agree with the History, Examination, Assessment and Plan documented above with any addition or exceptions noted below.
--- NOTE | 2019-07-30 09:12 | PRG ---
DATE OF SERVICE: 07/30/2019 SUBJECTIVE: The patient is status post placement of PEG tube yesterday. No overnight events. She is tolerating her tube feeds to goal feeds. She does have persistent hyponatremia, most recently at a level of 124. No overnight fevers noted. OBJECTIVE: GENERAL: On exam this morning, the patient awakens easily, she is able to tell me her name. She is moving all 4s, stronger on the right. HEENT: Pupils are equal and reactive. She does have some persistent ocular dysfunction. The patient appears to be tolerating her goal tube feeds and considering her underlying hyponatremia, we will go ahead and stop her IV fluids. We will also initiate sodium chloride 4 g t.i.d. through her PEG tube and we will monitor her closely. We again appreciate Medicine's continued assistance in this regard. If this improves and she continues to be neurologically stable, I anticipate that she will be appropriate for rehab at some point in the near future. Job ID: [id number] DREW
[2019-07-30] MEDS: Famotidine/PF 20 mg/2ml Vial SLOW IVP SCH ×2 (09:40→20:15)
[2019-07-30] MEDS: Sodium Chloride 1 GM TAB PO SCH ×3 (09:42→20:15)
--- NOTE | 2019-07-30 09:47 | PRG ---
DATE OF SERVICE: 07/30/2019 SUBJECTIVE: The patient is neurologically unchanged. She had a PEG placed yesterday. Sodium is just down to 124 and we will fluid restrict as well as add sodium 4 g t.i.d. The patient has also had intermittent fevers and we defer to the Medicine Service for further evaluation in this regard. Placement planning is underway. Job ID: [id number]
--- NOTE | 2019-07-30 11:08 | PRG ---
DATE OF SERVICE: 07/30/2019 SUBJECTIVE: Ms. Schuler had a PEG tube placed yesterday. She is tolerating tube feeds. She started to talk some. OBJECTIVE: VITAL SIGNS: Temperature is 98.5, blood pressure 135/64, pulse 72. ABDOMEN: Soft and nontender. PEG tube site is warm and dry. Bumper is loosened. ASSESSMENT: Status post PEG for CVA, intracranial hemorrhage. RECOMMENDATIONS: It needs to stay in for 6 weeks. If her swallowing progresses or if she does not need it, then it could be clamped, but it can not remove until 6 weeks, which can be done in our office. We will sign off at this time. If I can be of any further assistance in her care, please do not hesitate to contact me. Job ID: [id number]
[2019-07-30] MEDS: Acetaminophen 650 MG/20.3 ML UDCUP PER TUBE PRN (16:21)
[2019-07-31] MEDS: niMODipine 30 MG CAP PO SCH ×6 (01:18→20:50)
--- NOTE | 2019-07-31 05:33 | PRG ---
DATE OF SERVICE: 07/31/2019 SUBJECTIVE: Overnight, nursing reports that the patient has been more alert and moving around more in the bed. She did develop some urinary retention overnight, which required I and O and then ultimately Mendoza catheter placement. Her last UA on 07/29/2019, was negative for acute infection. She does continue to run low-grade temp as high as 100.3 overnight. Her CBC and BMP for today are not yet returned. We have also been following her hyponatremia and I will follow these results closely. OBJECTIVE: On exam, the patient is awake, alert. She is able to tell me her name and not reporting any complaints at this time. She is moving all 4s strongly. PLAN: We will follow her a.m. labs closely. We will also go ahead and check an ultrasound of bilateral lower extremities to rule out DVT. Consult Urology for urinary retention. Medicine is also assisting with management and we appreciate this. Job ID: [id number]
--- NOTE | 2019-07-31 06:02 | PDOC.FM ---
- Subjective Subjective: Overnight, patient with Tmax of 100.3F. Per nursing, patient more alert and awake yesterday. Fevered resolved after tylenol. On exam, patient resting comfortably in bed. No complaints or concerns. - Objective MAR Reviewed: Yes Vital Signs & Weight: Vital Signs (12 hours) Temp Pulse Resp BP Pulse Ox 07/31/19 03:43 98.1 F 89 20 159/77 H 98 07/30/19 23:15 97.6 F 77 20 144/78 H 98 07/30/19 19:10 97.2 F L 72 20 118/65 96 07/30/19 18:21 100.1 F H Weight Admit Weight 69.683 kg Weight 64.546 kg Most Recent Monitor Data Heart Rate from ECG 73 NIBP 137/62 NIBP BP-Mean 87 Respiration from ECG 21 SpO2 98 I&O: 07/29/19 07/30/19 07/31/19 06:59 06:59 06:59 Intake Total 6911 871 3008 Output Total 7591 4443 1230 Balance -391 -844 -286 Result Diagrams: 07/31/19 06:31 07/31/19 06:14 Phys Exam - Physical Examination Constitutional: NAD HEENT: moist MMs, sclera anicteric Neck: supple Respiratory: clear to auscultation bilateral Cardiovascular: RRR, no significant murmur, no rub Gastrointestinal: soft, non-tender, no distention, positive bowel sounds Musculoskeletal: pulses present Skin: no rash, normal turgor, cap refill <2 seconds Dx/Plan (1) Fever of unknown origin Status: Acute (2) SAH (subarachnoid hemorrhage) Code(s): I60.9 - NONTRAUMATIC SUBARACHNOID HEMORRHAGE, UNSPECIFIED Status: Acute - Plan Plan: 68 year old female with recent SAH. Family Medicine team consulted regarding recurrent fever. #Fever Likely related to SAH; however, workup initiated - see below. - Blood cx: NGTD, urine cx NGTD, Flu swab neg. UA neg. CXR no acute findings. - WBC increased to 18, no bands. Will continue to monitor. - Will hold off on antibiotics for now, as no obvious source of fever and only one documented night with temperature >100.4F. - If necessary or patient continues to fever and suspicion arises for infection as source of fever, will initiate antibiotic therapy at that time. #SAH - Managed by neurosurgery, primary team #Hyponatremia Likely related to recent SAH. - Per Pulm, fluid restriction - Will continue to monitor Dispo: Stable. Will continue to follow. Case Discussed with Dr. Morrissey Addendum - Attending - Attending Attestation Date/Time: 07/31/19 0105 I personally evaluated the patient and discussed the management with the team. I agree with the History, Examination, Assessment and Plan documented above with any addition or exceptions noted below. She is interactive with me, but does not open her eyes. Per her grandkids with her she recognized them and asked for a hug. She moves all extremities. In regards to her fever, she has had no true fever thus far and she has had a negative workup.
[2019-07-31 06:35] LABS: Anion Gap 12 mmol/L (10-20); BUN (Urea Nitrogen) 12 mg/dL (9.8-20.1); Calc. Creatinine Clearance 103 mL/min (70-130); Calcium 8.1 mg/dL (7.8-10.44); Carbon Dioxide 20 mmol/L (23-31); Chloride 98 mmol/L (98-107); Estimated GFR-MDRD Greater than 90; Glucose 123 mg/dL (80-115); Potassium 4.2 mmol/L (3.5-5.1); Sodium 126 mmol/L (136-145)
[2019-07-31 06:36] LABS: #Basophils 0.1 thou/uL (0.0-0.2); #Eosinphils 0.1 thou/uL (0.0-0.7); #Monocytes 1.5 thou/uL (0.11-0.59); #Neutrophils 15.6 thou/uL (1.40-6.50); %Basophils 0.3 % (0.0-1.0); %Eosinophils 0.4 % (0.0-10.0); %Lymphocytes 5.7 % (21.0-51.0); %Neutrophils 85.6 % (42.0-75.0); Hemoglobin 9.7 g/dL (12.0-16.0); Mean Corpuscular HGB CONC 33.5 g/dL (32.0-36.0); Mean Corpuscular Hemoglobin 31.7 pg (27.0-31.0); Mean Corpuscular Volume 94.6 fL (78.0-98.0); Mean Platelet Volume 8.1 fL (7.4-10.4); Platelet Count 379 thou/uL (130-400); RBC Distribution Width 12.3 % (11.5-14.5); Red Blood Cell (RBC) Count 3.05 mill/uL (4.20-5.40); White Blood Cell (WBC) Count 18.2 thou/uL (4.8-10.8)
--- NOTE | 2019-07-31 08:29 | ULT ---
EXAM: Bilateral lower extremity venous duplex: Deep veins evaluated with color Doppler, spectral analysis, and compression. INDICATIONS: Bilateral lower extremity pain and edema. FINDINGS: Deep veins interrogated include common femoral vein, femoral vein, popliteal vein, and post erior tibial vein. These veins show normal compression and blood flow. No evidence of DVT. IMPRESSION: Negative Bilateral venous duplex exam.
[2019-07-31] MEDS: Famotidine/PF 20 mg/2ml Vial SLOW IVP SCH ×2 (09:30→20:48)
[2019-07-31] MEDS: Sodium Chloride 1 GM TAB PO SCH ×3 (09:30→20:50)
[2019-07-31] MEDS: Milk Of Magnesia 30 ML UDCUP PO PRN (09:33)
--- NOTE | 2019-07-31 17:57 | CON ---
DATE OF CONSULTATION: 07/31/2019 CONSULTING: Family Medicine. CONSULTED: Kalin Chirinos MD REASON FOR CONSULTATION: Urinary retention. HISTORY OF PRESENT ILLNESS: Ms. Schuler is a 68-year-old white female, who was admitted to the hospital after a stroke on July 19. She apparently had subsequent subarachnoid hemorrhage and was intubated. She has recovered quite significantly from this, but continues to have significant deficits. She has had a PEG tube placed recently for swallowing difficulties. It was also noted the patient was unable to urinate on her own and had a Mendoza catheter placed. She has not been able to void without it. I have attempted to discuss things with the patient, but she is extremely altered currently, and there is no family at the bedside. She is able to provide a very limited history and generally does not answer questions appropriately. She currently states the catheter is not bothering her at all, and she is not having any bladder pain or spasms. ALLERGIES: CODEINE. CURRENT MEDICATIONS: 1. Acetaminophen. 2. DuoNeb. 3. Dulcolax. 4. Pepcid. 5. Milk of magnesia. 6. Nimodipine. 7. Zofran. 8. Scopolamine patch. PAST MEDICAL HISTORY: 1. Hepatitis C. 2. Suspected COPD. 3. Pneumothorax. 4. CVA with subarachnoid hemorrhage. PAST SURGICAL HISTORY: 1. EGD. 2. Abnormal Pap smear. 3. PEG tube placement. FAMILY HISTORY: Noncontributory. SOCIAL HISTORY: The patient has a [id number] history of smoking, but apparently quit in 2017. She does occasionally use marijuana and sometimes smokes cigars and apparently drinks alcohol only rarely. There are no other illicit drugs noted on her history. REVIEW OF SYSTEMS: A 12-point review of systems could not be obtained from the patient as she is not answering questions appropriately. PHYSICAL EXAMINATION: VITAL SIGNS: Temperature 97.3, pulse 96, respirations 20, blood pressure 133/63, saturations approximately 89% on room air. GENERAL: No apparent distress. Appears somewhat confused, slightly somnolent, not answering questions appropriately. Appears stated age. HEENT: Normocephalic and atraumatic. Pupils appear relatively symmetric. There is slight esotropia of the eyes. Moist mucous membranes. Trachea, midline. CARDIOVASCULAR: Regular rate and rhythm. Normal S1 and S2. Symmetric pulses. CHEST: No increased work of breathing. Diminished breath sounds with bibasilar crackles. Poor respiratory effort, but no obvious respiratory distress. ABDOMEN: Soft, nontender, and nondistended. Positive bowel sounds. No hernias or organomegaly noted. : Full exam not performed. There is a catheter in place, which appears secured, but draining clear yellow urine. SKIN: Warm and dry. No rashes or lesions. Good turgor. NEUROLOGIC: Cranial nerves 2 through 12 were grossly evaluated. There do appear to be some deficits of possibly cranial nerve 3 or 4 depending on the patient's esotropia. It is unknown whether this is a long-standing problem or something new since her CVA. The patient is not following commands adequately, and a full neurological exam was not performed. MUSCULOSKELETAL: There are no obvious joint deformities or joint erythema noted. Range of motion was not tested. PSYCHIATRIC: Alert and oriented x1. The patient appears somewhat confused. Mood and affect appear unaffected and relatively normal, although the patient does not have much emotional expression at this time. LABORATORY EVALUATION: The full set of labs are in the [facility], which I have reviewed. Of note, the patient's white count is 18.2 with hematocrit of 28. Creatinine is 0.54. The patient's sodium is 126. ASSESSMENT AND PLAN: A 68-year-old white female with a recent cerebrovascular accident with subarachnoid hemorrhage with significant deficits and weakness that have followed. Neurogenic bladder and atonic bladder are very common immediately following stroke or subarachnoid bleeds. This generally will resolve with a high degree of resolution, but it may take up to 4 to 6 weeks. The patient's weakness and bedridden status also significantly contribute to peripheral neurogenic atrophy resulting in weakened detrusor or bladder, which can also result in urinary retention. At the current time, I would recommend indwelling Mendoza catheter. If the patient is able to undergo rehab and gains a significant amount of strength back, generally, the patient should regain her voiding status anywhere between 2 to 6 weeks depending on the rate of recovery, strength, physical therapy, and neurological deficits that remain. If she does make adequate recovery, I would recommend attempting void trials in the office. If the patient makes limited to poor recovery and ends up relatively bedridden or immobile with inability to void, then we can discuss placement of a suprapubic catheter as an outpatient. For now, I would recommend continuation of indwelling Mendoza catheter with plans to change it every 30 days until we assess her recovery. I would not recommend anything further or attempt at removing the catheter while she is currently in the hospital here until she has started some kind of rehab. She should follow up with me as an outpatient for void trial. Job ID: [id number]
[2019-08-01] MEDS: Bisacodyl 10 MG SUPP PR PRN (01:28)
[2019-08-01] MEDS: niMODipine 30 MG CAP PO SCH ×4 (01:29→12:23)
--- NOTE | 2019-08-01 06:15 | PDOC.FM ---
- Subjective Subjective: NAEO. No concerns per nursing. Patient resting comfortably in bed. She has been working with PT and sitting up at the side of the bed. Per nursing, she is going to a swing bed. - Objective MAR Reviewed: Yes Vital Signs & Weight: Vital Signs (12 hours) Temp Pulse Resp BP Pulse Ox 08/01/19 04:00 98.7 F 86 20 158/60 H 96 08/01/19 00:00 99.2 F 81 18 148/70 H 98 07/31/19 19:13 99.3 F 83 20 123/49 L 97 Weight Admit Weight 69.683 kg Weight 65 kg Most Recent Monitor Data Heart Rate from ECG 73 NIBP 137/62 NIBP BP-Mean 87 Respiration from ECG 21 SpO2 98 I&O: 07/30/19 07/31/19 08/01/19 06:59 06:59 06:59 Intake Total 756 2194 930 Output Total 1600 3080 1925 [facility] -[phone] Result Diagrams: 08/01/19 06:30 08/01/19 06:30 Phys Exam - Physical Examination Constitutional: NAD HEENT: moist MMs, sclera anicteric Neck: supple, full ROM Respiratory: clear to auscultation bilateral Cardiovascular: RRR, no significant murmur, no rub Gastrointestinal: soft, non-tender, no distention, positive bowel sounds Musculoskeletal: no edema, pulses present very weak, difficult to arouse, non ambulatory Psychiatric: normal affect Skin: no rash, normal turgor, cap refill <2 seconds Dx/Plan (1) Fever of unknown origin Status: Acute (2) SAH (subarachnoid hemorrhage) Code(s): I60.9 - NONTRAUMATIC SUBARACHNOID HEMORRHAGE, UNSPECIFIED Status: Acute (3) Urinary retention Code(s): R33.9 - RETENTION OF URINE, UNSPECIFIED Status: Acute (4) Hyponatremia Code(s): E87.1 - HYPO-OSMOLALITY AND HYPONATREMIA Status: Acute - Plan Plan: 68 year old female with recent SAH. Family Medicine team consulted regarding recurrent fever. #Fever Likely related to SAH; however, workup initiated - see below. - Blood cx: NGTD, urine cx NGTD, Flu swab neg. UA neg. CXR no acute findings. - WBC increased to 18, no bands. Will continue to monitor. AM labs pending. - Will hold off on antibiotics for now, as no obvious source of fever and only one documented night with temperature >100.4F four days ago. - If necessary or patient has fever >100.4F and suspicion arises for infection as source of fever, will initiate empiric antibiotic therapy at that time. #SAH - Managed by neurosurgery, primary team #Hyponatremia Likely related to recent SAH. - Per Pulm, fluid restriction - Will continue to monitor #Urinary retention - urology consulted. Likely neurogenic bladder. Gamboa placed and will f/u outpatient. Dispo: Stable- going to swing bed. Afebrile. We will be signing off. Please contact us for any further assistance. Case Discussed with Dr. Daniels. Addendum - Attending - Attending Attestation Date/Time: 08/01/19 1036 I personally evaluated the patient and discussed the management with Dr. Shah I agree with the History, Examination, Assessment and Plan documented above with any addition or exceptions noted below. Patient alert and responsive still very weak left hemiparesis UE weaker than LE to my exam. Patient tolerating tube feeding well and will benefit from transfer to rehab. Patient afebrile for last several days, sodium stable responding to fluid restriction and sodium supplementation. Would repeat TFTs 4-6 weeks. Patient for transfer as rehab placement available. Indewelling gamboa to be changed out q 30 days per Urology.
[2019-08-01 06:46] LABS: #Lymphocytes 1.7 thou/uL (1.20-3.40); #Monocytes 1.8 thou/uL (0.11-0.59); #Neutrophils 12.8 thou/uL (1.40-6.50); %Basophils 0.2 % (0.0-1.0); %Eosinophils 0.3 % (0.0-10.0); %Lymphocytes 10.2 % (21.0-51.0); %Monocytes 10.8 % (0.0-10.0); %Neutrophils 78.6 % (42.0-75.0); Hemoglobin 9.1 g/dL (12.0-16.0); Mean Corpuscular HGB CONC 33.8 g/dL (32.0-36.0); Mean Corpuscular Hemoglobin 32.3 pg (27.0-31.0); Mean Corpuscular Volume 95.6 fL (78.0-98.0); Mean Platelet Volume 8.2 fL (7.4-10.4); Platelet Count 385 thou/uL (130-400); RBC Distribution Width 12.3 % (11.5-14.5); White Blood Cell (WBC) Count 16.3 thou/uL (4.8-10.8)
[2019-08-01 07:01] LABS: Anion Gap 9 mmol/L (10-20); BUN (Urea Nitrogen) 14 mg/dL (9.8-20.1); Calc. Creatinine Clearance 84 mL/min (70-130); Calcium 8.4 mg/dL (7.8-10.44); Carbon Dioxide 27 mmol/L (23-31); Chloride 98 mmol/L (98-107); Estimated GFR-MDRD 88; Glucose 127 mg/dL (80-115); Potassium 4.5 mmol/L (3.5-5.1); Sodium 129 mmol/L (136-145)
--- NOTE | 2019-08-01 08:24 | PRG ---
DATE OF SERVICE: 08/01/2019 SUBJECTIVE: The patient had no overnight events. She was seen yesterday by Urology for urinary retention and they have recommended indwelling Mendoza catheter and void trail in approximately 1 month. Her sodium appears to be improving and is 129 today. Her neurologic exam is unchanged. She has remained afebrile overnight. OBJECTIVE: On exam, this morning, the patient awakens easily. She is alert. She is moving all 4s strongly. She is able to tell me her name and has no specific complaints at this time. PLAN: At this point, sodium has improved. We feel that she is ready for dismissal to halfway facility at any point in time. I have reached out to Case Management for assistance in this regard. Job ID: [id number]
[2019-08-01] MEDS: Milk Of Magnesia 30 ML UDCUP PO PRN (09:52)
[2019-08-01] MEDS: Sodium Chloride 1 GM TAB PO SCH ×2 (09:53→14:49)
[2019-08-01] MEDS: Famotidine/PF 20 mg/2ml Vial SLOW IVP SCH (09:54)
[2019-08-01 12:02] VITALS: BMI 23.1
[2019-08-01] MEDS: Scopolamine 1.5 mg/72 hour Patch TD SCH (12:21)
[2019-08-01 15:42] VITALS: BP 148/75; TEMP 99.3
[2019-08-01] MEDS ORDERED: Famotidine 40 MG/5 ML Oral Suspension PER TUBE SCH (21:00)
--- NOTE | 2019-08-02 11:37 | DIS ---
DATE OF ADMISSION: 07/19/2019 DATE OF DISCHARGE: 08/01/2019 The patient is a 68-year-old female, who presented on 07/19/2019 to the ER following a sudden syncopal event and cardiac arrest. Upon arrival to the ER, she was found to have diffuse subarachnoid hemorrhage. 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 This was coiled the following day by Dr. Swain's service. She did have EVD placed at the bedside in the emergency department and she was intubated prior to arrival. Her EVD was trended over several days and her neurologic status improved. She continued to have significant difficulties with dysphagia and failed several swallowing tests, and ultimately had to have a PEG tube placed by GI. She was tolerating her tube feeds well following placement. She did develop some hyponatremia during her admission course and this was treated with salt tabs through her PEG tube with improvement of this as well. She was noted to have some intermittent fevers, particularly at night, but all of her cultures, urine, and chest x-ray were negative for infectious process. This seemed to improve during her admission. We ultrasounded her legs which were swollen, these were negative for any DVT. Her exam had improved and she would awaken easily. She would open her eyes, but had some persistent ocular dysfunction. She was moving all 4s, but much stronger on the right than the left. She is able to tell us her name and answer simple questions. I discussed the course of care with Dr. Hernandez and she was transitioned to [facility] at discharge. We will follow up with her in 4 weeks to reassess her progress. The patient should remain on Nimotop at least 3 weeks following the original instant. Please reach out to Neurosurgery for additional questions or concerns. Job ID: [id number]
--- NOTE | 2019-08-17 16:28 | CCL ---
DATE OF SERVICE: 07/20/19 SURGEONS: Clemente Swain M.D. [place]: None. INDICATION: Aneurysmal subarachnoid hemorrhage. PROCEDURE: Cerebral angiography with coil embolization of aneurysm. ANESTHESIA: General. TECHNIQUE: The patient was brought into the angiogram room and placed under general anesthesia. Both groins were prepped and draped in the usual sterile fashion. 1% lidocaine was used to inject the right common fe moral artery. Using the Seldinger technique, a 5 Surinamese sheath was placed through which a 5 Surinamese trevino btle select catheter which was passed over the a long vertebral diagnostic catheter which was passed over a Bentzen guidewire where the right internal carotid artery was selective catheterized. AP and l ateral as well as 3D rotational angiogram was performed. After identifying the aneurysm along the rig ht supraclinoid region, internal carotid artery, an Macclenny 10 microcatheter was passed over a transc end microguide wire which was then placed into the dome of the aneurysm where coils were deployed unt il there was embolization of the aneurysm. A controlled angiogram was then performed which revealed n ormal filling of the parent vessels. All catheters were then removed. Hemostasis was maintained with manual compression. The procedure came to an end without known complication. 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
== END 2019-08-01 16:22 | disposition swing bed (61) | DRG 20 ==
LOC: ERS 10:24 → CCU 12:05 → 2SE 07-26 16:03
PROVIDERS: ADMIT Family Medicine; ATTEND Family Medicine
PROC: 009630Z Drainage of Cerebral Ventricle with Drainage Device, Percutaneous Approach (ICD-10-PCS; principal; 2019-07-19)
PROC: 03L Upper Arteries, Occlusion (ICD-10-PCS; 2019-07-19)
PROC: 0DH63UZ Insertion of Feeding Device into Stomach, Percutaneous Approach (ICD-10-PCS; 2019-07-29)
DX: I60.9 Nontraumatic subarachnoid hemorrhage, unspecified (principal); J96.00 Acute respiratory failure, unspecified whether with hypoxia or hypercapnia; E87.1 Hypo-osmolality and hyponatremia; I47.1 Supraventricular tachycardia; I24.8 Other forms of acute ischemic heart disease; G81.94 Hemiplegia, unspecified affecting left nondominant side; R33.9 Retention of urine, unspecified; R40.2312 Coma scale, best motor response, none, at arrival to emergency department; R40.2112 Coma scale, eyes open, never, at arrival to emergency department; R40.2212 Coma scale, best verbal response, none, at arrival to emergency department; J44.9 Chronic obstructive pulmonary disease, unspecified; E87.6 Hypokalemia; F12.10 Cannabis abuse, uncomplicated; Z87.891 Personal history of nicotine dependence; Z88.5 Allergy status to narcotic agent; I60.7 Nontraumatic subarachnoid hemorrhage from unspecified intracranial artery; R91.1 Solitary pulmonary nodule; I95.9 Hypotension, unspecified; K21.0 Gastro-esophageal reflux disease with esophagitis; R13.12 Dysphagia, oropharyngeal phase; M79.7 Fibromyalgia
CPT/HCPCS: 36415; 36416; 61624; 70450; 70496; 71045; 74230; 80048; 80053; 80306; 80307; 81003; 81015; 82140; 82550; 82553; 82805; 83036; 83605; 83690; 83880; 84145; 84300; 84439; 84443; 84481; 84484; 85025; 85610; 85730; 86850; 86900; 86901; 87040; 87086; 87804; 93005; 93010; 93306; 93970; 94002; 94003; C1887; J0131; J0282; J0690; J1644; J2001; J2405; J2704; J3010; J3480; J3490; J7050; J7070; J7799; Q9967; S0017; S0028

== ENCOUNTER 2019-08-02 16:48 | Inpatient (IN) | payer MEDICARE ==
--- NOTE | 2019-08-02 19:57 | PDOC.FPRHP ---
- History of Present Illness Chief Complaint: hydrocephalus History of Present Illness: Patient is a 68F that was recently discharged from [facility] after coiling for a subarachnoid hemorrhage. She was sent over today as a direct admit from the [facility] after she was found to have worsening mental status and hydrocephalus. Upon arrival to [facility] she was found to have an NIH score of 20, which was increased from 16 at the [facility] facility. She was sent for an emergent CT and neurosurgery is being consulted. ROS: unobtainable due to patient being obtunded on evaluation ED Course: direct admit from [facility] - Allergies/Adverse Reactions Allergies Allergy/AdvReac Type Severity Reaction Status Date / Time codeine Allergy Nausea Verified 09/08/17 16:37 - Home Medications Medication Instructions Recorded Confirmed Type Acetaminophen [Tylenol Elixir] 650 mg PER TUBE Q6H PRN udcup 08/01/19 08/01/19 Rx Bisacodyl [Dulcolax] 10 mg NH DAILYPRN PRN supp 08/01/19 08/01/19 Rx Famotidine [Pepcid Suspension] 20 mg PER TUBE Q12HR ml 08/01/19 08/01/19 Rx Ipratropium/Albuterol Sulfate 3 ml NEB S1CD-NR PRN neb 08/01/19 08/01/19 Rx [DuoNeb] Magnesium Hydroxide [Milk Of 30 ml PO DAILYPRN PRN udcup 08/01/19 08/01/19 Rx Magnesium] Nimodipine [Nimotop] 60 mg PO Q4HR cap 08/01/19 08/01/19 Rx Sodium Chloride 4 gm PO TID tab 08/01/19 08/01/19 Rx - History Hx gathered from prior H&P as patient obtunded on exam PMHx: COPD, Hep C s/p tx, collapsed lung PSHx: cervical conization, liver biopsy FHx: non-contributory Social: 1-2 cigars/day for last 15 years, cigarettes before that, social alcohol consumption, marijuana use daily FMR H&P: Results - Labs Result Diagrams: 08/03/19 05:00 - Radiology Interpretation CT scan - head Status: report reviewed by me (First head CT: stable moderate hydrocephalus Second head CT: moderate hydrocephalus) FMR H&P: A/P - Problem List (1) Encephalopathy Current Visit: Yes Status: Acute Code(s): G93.40 - ENCEPHALOPATHY, UNSPECIFIED (2) Hydrocephalus Current Visit: Yes Status: Acute Code(s): G91.9 - HYDROCEPHALUS, UNSPECIFIED (3) Fever Current Visit: Yes Status: Acute Code(s): R50.9 - FEVER, UNSPECIFIED - Plan PE: V: p78, BP 134/61, 99% RA, rr 18 General: obtunded, in no respiratory distress HEENT: MMM, EVD in place CHEST: no lesions Cardiac: RRR, no murmurs appreciated Respiratory: CTAB Neuro: Grimace but no withdraw L upper, grimace and withdraw L lower, normal movement of R extremities Extremities: No edema Skin: no purpura, no jaundice A/P #Encephalopathy #Hydrocephalus -worsening NIH score -worsening mental status -obtunded on exam -emergent CT demonstrated new findings as compared to CT on 07/24 -neurosurgery consulted, appreciate recs; LAURA Putnam, placed EVD -continue to follow neurosurgery management recommendations #Fever -started on vancomycin and meropenem for possible intracranial etiology -fever possibly neurological vs infection -will continue abx for now Dispo: inpatient for encephalopathy/hydrocephalus care; neurosurgery consulted, appreciate recs; patient getting emergent CT and will follow Code: Full FMR H&P: Upper Level - Pertinent history 68 yo female who was recently admitted for ruptured saccular aneurysm was re- admitted due to deteriorating mental status. Patient was at swing bed facility and had recurrent fevers and found to have new hydrocephalus on CT. Please see undergraduate internship note above for further information. - Plan Date/Time: 08/02/191956 IDawit MD, have evaluated this patient and agree with findings/ plan as outlined by undergraduate internship resident. Pertinent changes/additions are listed here. 1. Hydrocephalus - New finding as compared to CT on 07/24 - LAURA Putnam Neurosurgery consulted and placed EVD - Defer treatment to Neurosurgery team 2. Fever - Started empiric antibiotics for coverage of intracranial etiology - No CSF cultures taken - Blood cultures pending All other chronic medical conditions reviwed and will have medications started as appropriate. PCP: MODE Hernandez CODE STATUS: FULL CODE Disposition: Stable, will admit to ICU for further evaluation and treatment.
--- NOTE | 2019-08-02 20:23 | CT ---
Exam: Head CT without contrast HISTORY: Evolving hydrocephalus COMPARISON: 08/02/2019 at 1:18 PM FINDINGS: Hemorrhage: No intraparenchymal hemorrhage or extra-axial hematoma. Brain parenchyma: Cortical you-white matter differentiation is preserved. No mass effect or midline shift. Basilar cisterns are patent.Redemonstration of hypodensities, periventricular in distribution which may represent chronic small vessel ischemic changes versus transependymal flow of CSF. Stable intracranial pressure monitor via the right frontal approach. Stable coil mass in the suprasellar cistern. Ventricular system: Stable moderate hydrocephalus. Small hyperdensity in the dependent portion of the right lateral ventricle is redemonstrated. Calvarium: Intact. Sinuses and mastoid air cells: Adequate aeration. IMPRESSION: Stable moderate hydrocephalus. Transcribed Date/Time: 08/02/2019 8:37 PM
[2019-08-02] MEDS ORDERED: Sodium Chloride 0.9% 10 ML ONE (21:24)
[2019-08-02] MEDS ORDERED: Morphine 4 MG/ML VIAL ONE (21:25)
[2019-08-02] MEDS ORDERED: Morphine 4 MG/ML VIAL SLOW IVP SCH (21:50)
[2019-08-02] MEDS: MEROPENEM 1 GM/50 ML 1 GM in Premix Bag 1 BAG IVPB SCH (22:31)
[2019-08-02] MEDS ORDERED: Vancomycin HCl 1.75 GM in Sodium Chloride 0.9% 500 ML IVPB SCH (23:00)
[2019-08-02] MEDS ORDERED: Bisacodyl 10 MG SUPP PR PRN (23:27)
[2019-08-02] MEDS ORDERED: Milk Of Magnesia 30 ML UDCUP PO PRN (23:27)
[2019-08-02] MEDS ORDERED: Acetaminophen 650 MG/20.3 ML UDCUP PER TUBE PRN (23:27)
[2019-08-03] MEDS: Sodium Chloride 0.9% 1,000 ML IV SCH ×2 (01:11→17:21)
[2019-08-03] MEDS: niMODipine 30 MG CAP PO SCH ×6 (01:15→21:10)
[2019-08-03] MEDS ORDERED: niMODipine 30 MG CAP ONE (05:08)
[2019-08-03] MEDS: Vancomycin HCl 1 GM in Premix Bag 1 BAG IVPB SCH ×3 (08:00→20:15)
--- NOTE | 2019-08-03 11:40 | CON ---
DATE OF CONSULTATION: HISTORY OF PRESENT ILLNESS: Ms. Schuler is a 68-year-old woman who is actually known to our practice for aneurysmal subarachnoid hemorrhage roughly 2 weeks ago who was under the care of Dr. Dunaway and Khurram from our practice. Dr. Swain actually coiled an aneurysm at that time as well. She stabilized, moved out of ICU and then ultimately yesterday was transferred to a swing bed in [place] where unfortunately she began to decline further and as of today, it was felt that there was enough concern , which revealed marked enlargement of the entire ventricular system as compared to the last CT during her hospital admission, which was on July 24. There is hypodensity surrounding the lateral ventricles, which is likely indicative of transependymal flow. Upon her arrival in the ICU in bed C10 at [facility], I am evaluating her for the first time. She is difficult to arouse and after several attempts including sliding her from one bed to the next and repeated noxious stimuli, she does finally awaken. She grimaces and does not speak, but does make grunting noises. She does follow commands immediately. She does not open her eyes at any time until I opened them and then she keeps them open, but has a dysconjugate gaze, though does attempt to follow. I would rate her GCS E2, V2 and M6, grading on a GCS of 10 total. She is protecting her airway on her own, oxygenating at 99% on room air with no nasal cannula. Breathing is unlabored and even, respiratory rate is around 15 per minute, her systolic pressures are in the 120s and at times 130s. No surgeries planned at this time. Given the degree of hydrocephalus and change in her mental status, we will need to place an external ventricular catheter. We will do this at bedside tonight. I spoke to daughter Maria on the phone to discuss this further and she approves our moving forward with this procedure. We will do this and continue to follow. We will also consult Critical Care to alert them of her presence in the ICU should her condition worsen and she require airway assistance or further care. Job ID: [id number]
[2019-08-03] MEDS: MEROPENEM 1 GM/50 ML 1 GM in Premix Bag 1 BAG IVPB SCH ×3 (15:00→21:23)
--- NOTE | 2019-08-03 15:13 | OP ---
DATE OF PROCEDURE: 08/02/2019 PROCEDURE PERFORMED: External ventricular catheter placement. INDICATION: Hydrocephalus and altered mental status. CLINICIAN: Kevin Manning PA-C. DESCRIPTION OF PROCEDURE: The patient's prior EVD site was identified and overlying monica were removed. The skin surface was sterilely prepped and draped and the more medial of the two small incision sites was opened with an 11 blade. Blunt dissection of the underlying tissue and identification of the skull surface was made. However, I was unable to locate the prior bur hole and as such, used a cranial twist drill at Adam's point to access the dura. Upon completion, dura was punctured with blunt dissection. An external ventricular catheter was placed at a depth of 6 cm to the skin surface. There was slow egress of bloody CSF through the catheter tubing and a small clot of what looks to be potentially debrided scar tissue upon passage of the shunt catheter. Once this García drain was then attached to the tubing and set to 15 cm water zero to the tragus. The patient tolerated the procedure well. Job ID: [id number]
[2019-08-03 16:13] LABS: Anion Gap 11 mmol/L (10-20); BUN (Urea Nitrogen) 15 mg/dL (9.8-20.1); Calc. Creatinine Clearance 108 mL/min (70-130); Carbon Dioxide 22 mmol/L (23-31); Chloride 104 mmol/L (98-107); Estimated GFR-MDRD Greater than 90; Glucose 104 mg/dL (80-115); Potassium 4.2 mmol/L (3.5-5.1); Sodium 133 mmol/L (136-145)
[2019-08-03] MEDS: Sodium Chloride 1 GM TAB PO SCH ×3 (18:14→21:11)
[2019-08-03] MEDS ORDERED: Sodium Chloride 0.9% 10 ML ONE (19:52)
[2019-08-03] MEDS: Famotidine 40 MG/5 ML Oral Suspension PER TUBE SCH ×2 (20:14→21:11)
[2019-08-03 23:49] LABS: Vancomycin, Trough 18.6 ug/mL
[2019-08-04] MEDS: niMODipine 30 MG CAP PO SCH ×6 (00:39→20:31)
[2019-08-04] MEDS: Sodium Chloride 0.9% 1,000 ML IV SCH ×2 (00:40→12:14)
[2019-08-04] MEDS: MEROPENEM 1 GM/50 ML 1 GM in Premix Bag 1 BAG IVPB SCH ×3 (05:20→21:54)
--- NOTE | 2019-08-04 06:49 | PDOC.FM ---
- Subjective Subjective: No overnight events. Daughter present in room. Reports some improvement in her mental status as well as her left arm movement. - Objective MAR Reviewed: Yes Vital Signs & Weight: Vital Signs (12 hours) Temp Pulse Ox 08/04/19 03:00 98.5 F 08/03/19 23:00 98.3 F 08/03/19 20:00 99 08/03/19 19:00 98.4 F Weight Weight 70.364 kg Most Recent Monitor Data Heart Rate from ECG 77 NIBP 110/60 NIBP BP-Mean 76 Respiration from ECG 27 SpO2 96 I&O: 08/02/19 08/03/19 08/04/19 06:59 06:59 06:59 Intake Total 3155 Output Total 1518 Balance 1637 Result Diagrams: 08/04/19 07:27 08/04/19 07:27 Phys Exam - Physical Examination Constitutional: NAD HEENT: moist MMs Respiratory: no wheezing, clear to auscultation bilateral Cardiovascular: RRR Gastrointestinal: soft, positive bowel sounds Musculoskeletal: no edema Able to squeeze fingers with left hand. Pupils reactive b/l Dx/Plan - Plan Plan: Encephalopathy with Recent SAH and New finding of Hydrocephalus on CT this admission - Initially worse NIH score of 24, improving 16 this AM - Neurosurgery consulted, appreciate recs; EVD in place - Plan to watch throughout the weekend and then eval it pt needs a shunt Fever 2/2 neurological etiology vs infection - Continue Vanc and meropenem for possible intracranial etiology - Ordered procal - Urine culture pending. Blood culture NGTD - Recollect sputum culture Hyponatremia - 130 this AM, could be SIADH, will decrease IVF to 10mls/hr as pt is getting tube feeds Code Status: FULL DVT ppx: SCDs GI ppx: Pepcid Lines: Central line 07/19 EVD 08/02 Addendum - Attending - Attending Attestation Date/Time: 08/04/19 7840 I personally evaluated the patient and discussed the management with Dr. Lopez I agree with the History, Examination, Assessment and Plan documented above with any addition or exceptions noted below. Discussed plan of care with daughter will more aggressively fluid restrict and trend Sodium.
--- NOTE | 2019-08-04 07:22 | PRG ---
DATE OF SERVICE: 08/04/2019 The patient is a 68-year-old female known to us for recent subarachnoid hemorrhage, aneurysmal, which was closed by Dr. Swain. [facility], but returned after development of somnolence and evidence of hydrocephalus. Her EVD was replaced and is currently set at 15 cm of water. It appears to be functioning appropriately and had approximately 2 to 4 mL overnight. Her ICP has been ranging from 9 to 12 overnight. She had no acute overnight events. Since placement of the EVD, her neurologic exam has improved back to her baseline. On exam this morning, the patient is awake. She is able to tell me her name and answer simple questions. She is moving all 4s, although she is much weaker on the left than the right. This has been ongoing since the initial event. She continued to have some ocular dysfunction, which is also unchanged. We will continue to monitor closely and leave the EVD settings currently at 15 cm for water open. I have also sent a repeat basic metabolic panel this morning as she has had issues with hyponatremia in the past, although this appeared improved more recently. We appreciate Family Medicine's assistance with any ongoing medical needs. Job ID: [id number]
[2019-08-04 08:05] LABS: Anion Gap 12 mmol/L (10-20); BUN (Urea Nitrogen) 13 mg/dL (9.8-20.1); Calc. Creatinine Clearance 110 mL/min (70-130); Carbon Dioxide 21 mmol/L (23-31); Chloride 101 mmol/L (98-107); Estimated GFR-MDRD Greater than 90; Glucose 121 mg/dL (80-115); Potassium 3.7 mmol/L (3.5-5.1); Sodium 130 mmol/L (136-145)
[2019-08-04] MEDS: Vancomycin HCl 1 GM in Premix Bag 1 BAG IVPB SCH ×3 (08:10→15:54)
--- NOTE | 2019-08-04 08:11 | CON ---
DATE OF CONSULTATION: HISTORY OF PRESENT ILLNESS: Brittney Schuler is a 68-year-old female, who was admitted last night with mental status change, and hydrocephalus. Neurosurgery consulted me at midnight regarding her ICU admission and care. She has drainage device. In fact, she was transferred to the [facility]. She is unable to give any information at this time. No verbal communication. She underwent coiling of the aneurysm during her last visit about two weeks ago. She is grimacing and not speaking much. Following command. PAST MEDICAL HISTORY: Her previous extensive history is well outlined. 1. Hepatitis C, apparently COPD, and history of previous pneumothorax. 2. Subarachnoid hemorrhage, status post coiling. PAST SURGICAL HISTORY: Previous surgeries; EGD, cervical conization, PEG tube placement, and drainage device placed in. MEDICATIONS: 1. Nimodipine 60 q.4. 2. Nebulizer. 3. Pepcid. ALLERGIES: CODEINE. REVIEW OF SYSTEMS: Otherwise, unable to obtain. PHYSICAL EXAMINATION: VITAL SIGNS: Pulse 80, blood pressure 130/68, saturations 90%, and respiratory rate 22. CHEST: Reveals no wheezing or crackles. CARDIAC: Normal S1 and S2. No gallops. ABDOMEN: No masses. IMAGING DATA: CT brain from last night shows stable moderate hydrocephalus with pressure device in place. LABORATORY DATA: White count 14,000, hemoglobin and hematocrit 8 and 25, and platelet count 408. Lytes are normal. Sodium 131. BNP 248. Chest x-ray normal. ASSESSMENT AND PLAN: 1. Subarachnoid hemorrhage, mental status change, and hydrocephalus. 2. Apparently, chronic obstructive pulmonary disease. She was started on broad-spectrum antibiotics, meropenem, and vancomycin. They are going to culture the CSF. Continue supportive care. Further recommendation as per Neurosurgery. Pulmonary/Critical Care will follow while in the ICU. We will notify Dr. Olea, who has seen the patient in the past. Consultation note, 70 minutes, 50% direct patient care. Job ID: [id number]
[2019-08-04] MEDS: Famotidine 40 MG/5 ML Oral Suspension PER TUBE SCH ×2 (08:31→20:28)
[2019-08-04 09:00] LABS: #Basophils 0.1 thou/uL (0.0-0.2); #Eosinphils 0.2 thou/uL (0.0-0.7); #Lymphocytes 1.4 thou/uL (1.20-3.40); #Neutrophils 8.6 thou/uL (1.40-6.50); %Basophils 0.5 % (0.0-1.0); %Eosinophils 1.7 % (0.0-10.0); %Lymphocytes 12.6 % (21.0-51.0); %Monocytes 8.7 % (0.0-10.0); %Neutrophils 76.5 % (42.0-75.0); Mean Corpuscular HGB CONC 33.7 g/dL (32.0-36.0); Mean Corpuscular Hemoglobin 32.3 pg (27.0-31.0); Mean Corpuscular Volume 95.8 fL (78.0-98.0); Mean Platelet Volume 7.7 fL (7.4-10.4); Platelet Count 396 thou/uL (130-400); RBC Distribution Width 12.2 % (11.5-14.5); Red Blood Cell (RBC) Count 2.77 mill/uL (4.20-5.40); White Blood Cell (WBC) Count 11.2 thou/uL (4.8-10.8)
--- NOTE | 2019-08-04 09:03 | PRG ---
DATE OF SERVICE: 08/04/2019 SUBJECTIVE: Ms. Schuler easily awakens. She is able to verbalize some. She has an EVD in place. OBJECTIVE: VITAL SIGNS: Temperature 98.2, pulse 69, blood pressure 130/73, O2 saturation 99%. Intake for 24 hours 3155, output 1518. HEENT: Unremarkable. NECK: No adenopathy or JVD. LUNGS: Clear anteriorly. CARDIAC: S1 and S2. Regular. ABDOMEN: Soft. PEG tube noted. EXTREMITIES: Trace edema. LABORATORY DATA: So far, cultures show no growth to date. ASSESSMENT: Obstructive hydrocephalus status post subarachnoid hemorrhage. PLAN: 1. I would recommend consolidating antibiotics if cultures come back sterile. 2. Cardiopulmonary status is stable. 3. Continue tube feeds. 4. Watch sodium level as it is trending low. Job ID: [id number]
[2019-08-04] MEDS: Sodium Chloride 1 GM TAB PO SCH ×3 (09:47→20:31)
[2019-08-04] MEDS ORDERED: Sodium Bicarbonate Tab 325 MG TAB PER TUBE PRN (19:48)
[2019-08-04] MEDS ORDERED: Pancrelipase DR 12000 1 CAP FS PRN (19:48)
[2019-08-04 23:15] LABS: Vancomycin, Trough 21.8 ug/mL
[2019-08-05] MEDS: Vancomycin HCl 1 GM in Premix Bag 1 BAG IVPB SCH (00:14)
[2019-08-05] MEDS: niMODipine 30 MG CAP PO SCH ×6 (00:28→21:26)
[2019-08-05] MEDS: MEROPENEM 1 GM/50 ML 1 GM in Premix Bag 1 BAG IVPB SCH (05:30)
[2019-08-05] MEDS ORDERED: Polyethylene Glycol 3350 17 GM Packet PER TUBE PRN (06:39)
--- NOTE | 2019-08-05 06:47 | PDOC.FM ---
- Subjective Subjective: No overnight events. Daughter was present yesterday. Pt is a little less interactive this morning but follows simple commands. No BM since admission. Denies pain. - Objective MAR Reviewed: Yes Vital Signs & Weight: Vital Signs (12 hours) Temp Pulse Ox 08/05/19 04:00 98.1 F 08/04/19 23:00 98.3 F 08/04/19 19:44 100 08/04/19 19:00 98.7 F Weight Admit Weight 70.364 kg Weight 70.364 kg Most Recent Monitor Data Heart Rate from ECG 72 NIBP 110/63 NIBP BP-Mean 78 Respiration from ECG 24 SpO2 97 I&O: 08/03/19 08/04/19 08/05/19 06:59 06:59 06:59 Intake Total 3155 2784 Output Total 1518 1516 Balance 1637 1268 Result Diagrams: 08/04/19 07:27 08/06/19 08:49 Phys Exam - Physical Examination Constitutional: NAD HEENT: moist MMs Neck: supple Respiratory: no wheezing, clear to auscultation bilateral Cardiovascular: RRR Gastrointestinal: soft, positive bowel sounds Musculoskeletal: no edema squeezes with b/l hands, 5/5 right LE strength. 0/5 on right Skin: no rash Dx/Plan - Plan Plan: Encephalopathy with Recent SAH and New finding of Hydrocephalus on CT this admission - Initially worse NIH score of 24, 17 this AM - Neurosurgery consulted, appreciate recs; EVD in place - Plan to watch throughout the weekend and then eval it pt needs a shunt - PT/OT consulted Fever 2/2 likely neurological etiology - Blood cx neg at 48hr, procal neg. Will discontinue antibiotics Hyponatremia, improving - 131 this AM Hx of Elevated TSH - Ordered repeat TSH Code Status: FULL DVT ppx: SCDs GI ppx: Pepcid Lines: Central line 07/19 Addendum - Attending - Attending Attestation Date/Time: 08/06/19 1401 I personally evaluated the patient and discussed the management with Dr. Lopez I agree with the History, Examination, Assessment and Plan documented above with any addition or exceptions noted below. Mental status declined note ICP per EVS <5cm/h2o does not appeared plugged for f/u CT and re-evaluation permanent shunt per Neurosurgery after continued observation trial. Antibiotic de-escalated to Ancef continue trend Sodium
[2019-08-05] MEDS ORDERED: Bisacodyl 10 MG SUPP PR SCH (07:30)
[2019-08-05 07:33] LABS: Anion Gap 9 mmol/L (10-20); BUN (Urea Nitrogen) 12 mg/dL (9.8-20.1); Calc. Creatinine Clearance 103 mL/min (70-130); Calcium 8.2 mg/dL (7.8-10.44); Carbon Dioxide 27 mmol/L (23-31); Chloride 99 mmol/L (98-107); Estimated GFR-MDRD Greater than 90; Glucose 123 mg/dL (80-115); Potassium 3.5 mmol/L (3.5-5.1); Sodium 131 mmol/L (136-145)
--- NOTE | 2019-08-05 08:18 | PRG ---
DATE OF SERVICE: 08/05/2019 SUBJECTIVE: The patient remains in the ICU with an EVD in place. I find her mental status to be much less interactive today than she was yesterday. OBJECTIVE: VITAL SIGNS: On exam, temperature is 98.1, pulse 72, blood pressure 110/63, and O2 saturation 97%. HEENT: Unremarkable except for the EVD in place. NECK: No adenopathy or JVD. LUNGS: Clear to auscultation. CARDIAC: S1 and S2. Regular. ABDOMEN: Soft. PEG tube noted. EXTREMITIES: No edema. LABORATORY DATA: Sodium of 131, potassium 3.5, chloride 99, CO2 of 27, BUN 12, creatinine 0.6, and glucose 123. ASSESSMENT: 1. Hydrocephalus. 2. Status post aneurysmal bleed with diffuse subarachnoid hemorrhage. 3. Status post percutaneous endoscopic gastrostomy tube placement because of persistent dysphagia. PLAN: The patient will remain in the ICU as long as the EVD is in place. So far, cultures are negative. Neurology is contemplating in placing a shunt. Job ID: [id number]
--- NOTE | 2019-08-05 08:47 | PRG ---
DATE OF SERVICE: 08/05/2019 SUBJECTIVE: The patient continues to be monitored closely in the ICU. Her EVD is in place and is functional, had anywhere from 0 to 8 mL out per hour and ICP has ranged from 0 to 13. There was concern from nursing it is possible that the patient was less interactive. During my exam at the bedside, patient eyes are open. She was looking around. She is able to tell me her name. She is following commands, will move her feet and attempt to give me a thumbs up with the right hand. She is still significantly weak on the left side. Her EVD is in place and has serosanguineous fluid in the bulb. She has been afebrile overnight and thus far her cultures have been negative. The patient appears to have some waxing and waning mental status changes, but appears at her baseline for me this morning. We will go ahead and set her EVD at 20 cm of water and monitor closely. Job ID: [id number] [facility]
[2019-08-05] MEDS: Famotidine 40 MG/5 ML Oral Suspension PER TUBE SCH ×2 (09:55→21:26)
[2019-08-05] MEDS: Sodium Chloride 1 GM TAB PO SCH ×3 (09:57→21:26)
[2019-08-05] MEDS: Sodium Chloride 0.9% 1,000 ML IV SCH (11:55)
--- NOTE | 2019-08-05 12:51 | PQF ---
VALERIY GUZMANBRANDON *r [id number] CLINICAL DOCUMENTATION IMPROVEMENT CLARIFICATION FORM: ICD-10 Updated PLEASE DO AN ADDENDUM TO THE PROGRESS NOTE WITH ANY DOCUMENTATION UPDATES OR ADDITIONS AND CARRY THROUGH TO DC SUMMARY. THANK YOU. DATE: 08/05/19 ATTN: Dr. Shah Please exercise your independent, professional judgment in responding to the clarification form. Clinical indicators are provided on the bottom of this form for your review Please check appropriate box(s): HFrEF A. ACUITY [ ] Acute on chronic [ ] Chronic [ ] Other diagnosis [x ] Unable to determine In addition, please specify: Present on Admission (POA): [ ] Yes [ ] No [ x ] Unable to determine For continuity of documentation, please document condition throughout progress notes and discharge summary. Thank You. CLINICAL INDICATORS - SIGNS / SYMPTOMS / LABS / RESULTS AND LOCATION IN EMR 08/05 (Pablo): "HFrEF" 08/05 CT chest: Cardiomegaly. Small bilateral effusions. Patchy groundglass opacities. Correlate for congestive heart failure. 08/04 (Pablo): "EKG showing afib " RISKS FACTORS / RESULTS AND LOCATION IN EMR " Hypertension; Afib s/p AICD" 08/04 (Pablo) TREATMENTS / RESULTS AND LOCATION IN EMR PO Diuretics--> lasix 20mg BID 08/03-08/05; Lasix 40mg po 08/05 per orders (This form is maintained as a part of the permanent medical record) 2014 [employer]. All Rights Reserved Shobha Manzano RN, BSN, CCDS [email or web address] THIS SHOULD GO TO RESIDENT TAKING CARE OF PATIENT WHICH IS BONNY MENDOZA MD. THANKS MTDD
[2019-08-06] MEDS: niMODipine 30 MG CAP PO SCH ×6 (01:15→21:26)
--- NOTE | 2019-08-06 06:17 | PDOC.FM ---
- Subjective Subjective: No overnight events. Mental status has seemed to decline since EVD set to 7. Not speaking at all this morning or able to squeeze hands. - Objective MAR Reviewed: Yes Vital Signs & Weight: Vital Signs (12 hours) Temp Pulse Ox 08/06/19 04:00 98.1 F 08/06/19 00:00 98.2 F 08/05/19 20:00 98.5 F 100 Weight Admit Weight 70.364 kg Weight 70.364 kg Most Recent Monitor Data Heart Rate from ECG 73 NIBP 129/69 NIBP BP-Mean 89 Respiration from ECG 17 SpO2 100 I&O: 08/04/19 08/05/19 08/06/19 06:59 06:59 06:59 Intake Total 3155 2784 706.6 Output Total 1518 1516 1694 Balance 1637 1268 -987.4 Result Diagrams: 08/04/19 07:27 08/06/19 08:49 Phys Exam - Physical Examination Constitutional: NAD Respiratory: no wheezing, clear to auscultation bilateral Cardiovascular: RRR Gastrointestinal: soft, positive bowel sounds Musculoskeletal: no edema Does not follow simple commands. Nonverbal. Does not move b/l UE or LE Deviation from normal: stuporous Dx/Plan - Plan Plan: Encephalopathy with Recent SAH and New finding of Hydrocephalus on CT this admission - Most recent NIH 18. ICP 2-4 - Neurosurgery consulted, appreciate recs; EVD in place at 7 - Eval early next week if pt needs a shunt - PT/OT consulted Fever 2/2 likely neurological etiology - Blood and urine cultures neg. Abx d/c'ed yesterday. Continue Anceph for EVD Hyponatremia, improving Hx of Elevated TSH - Repeat TSH 9.2 Code Status: FULL DVT ppx: SCDs GI ppx: Pepcid Lines: Central line 07/19 Addendum - Attending - Attending Attestation Date/Time: 08/06/19 4548 I personally evaluated the patient and discussed the management with Dr. Shah I agree with the History, Examination, Assessment and Plan documented above with any addition or exceptions noted below.
--- NOTE | 2019-08-06 08:32 | PRG ---
DATE OF SERVICE: 08/06/2019 SUBJECTIVE: The patient had no overnight events. Her EVD is currently set at 20 cm of water. She has had approximately 2 to 3 mL out per hour overnight. Her ICP has ranged from 0 to 11. Nursing report her mental status seems to wax and wane at times. She remains afebrile. Most recent sodium yesterday was 131. OBJECTIVE: On exam this morning, patient's eyes are open. She is not verbal this morning. She is following commands and squeezes my hand with the right hand and moves both her feet. The patient is slightly less interactive with the this morning. However, this status seems to wax and wane at times. Her EVD appears functional, had 20 cm of water. Discussed with Dr. Dunaway who recommended clamping her EVD. We will repeat an a.m. BMP to evaluate her sodium levels. I have also restarted her Ancef, it has been discontinued during the course at some point. Job ID: [id number] MTDD
[2019-08-06] MEDS: CEFAZOLIN 2 GM in Premix Bag 1 BAG IVPB SCH ×2 (08:53→16:46)
[2019-08-06] MEDS: Sodium Chloride 1 GM TAB PO SCH ×2 (08:54→21:26)
[2019-08-06] MEDS: Famotidine 40 MG/5 ML Oral Suspension PER TUBE SCH ×2 (08:55→21:26)
[2019-08-06 09:29] LABS: Anion Gap 10 mmol/L (10-20); BUN (Urea Nitrogen) 13 mg/dL (9.8-20.1); Calc. Creatinine Clearance 105 mL/min (70-130); Calcium 8.5 mg/dL (7.8-10.44); Carbon Dioxide 26 mmol/L (23-31); Chloride 101 mmol/L (98-107); Estimated GFR-MDRD Greater than 90; Glucose 115 mg/dL (80-115); Sodium 133 mmol/L (136-145)
[2019-08-06] MEDS ORDERED: Lactated Ringer's 1,000 ML IV SCH (11:15)
--- NOTE | 2019-08-06 11:32 | PRG ---
DATE OF SERVICE: 08/06/2019 SERVICE: Pulmonary Medicine. INTERVAL HISTORY: This is my first time meeting Ms. Schuler. That being said, I am told that she is having slightly worsening in mentation. A couple of days ago, she was able to have full conversation. At this point, with significant stimulation, she will follow some very simple commands, but outside of that, she is not interacting as well as she previously was reported to. She cannot provide any additional elements of the history currently. There are no significant overnight events. PHYSICAL EXAMINATION: VITAL SIGNS: Afebrile; pulse 78; blood pressure 128/70; respirations 24; and saturation 100%, currently on room air. GENERAL: The patient is awake. She is alert. She has inward gaze. HEENT: Normocephalic and atraumatic. Sclerae are white. Conjunctivae are pink. Oral mucosa is moist without lesions. LUNGS: Decent air entry. Rhonchi are present. No prolonged expiratory phase or wheezing is appreciated. HEART: Normal rate. Regular. ABDOMEN: Soft, nontender, and nondistended. Bowel sounds are positive. MUSCULOSKELETAL: No cyanosis or clubbing. There is no pitting in bilateral lower extremities. She has skin tenting. NEUROLOGIC: With noxious stimuli to the right upper extremity, she postures and has a severe grimace. She spontaneously moves her bilateral lower extremities and follows commands there. With the left upper extremity, she has less sensation and less movement. Her eyes are deviated inward. She is following some very simple commands. LABORATORY DATA: WBC 11.2, hemoglobin 9.0, and platelets 396,000. Sodium 133. Basic metabolic profile is otherwise unremarkable. TSH 9.4. Procalcitonin 0.03. Vancomycin 21.8. Urine culture, blood cultures x2 are unremarkable today. ASSESSMENT: 1. Hydrocephalus, status post EVD placement. 2. Subarachnoid hemorrhage secondary to aneurysmal bleed. 3. Hyponatremia. 4. Cellulitis of the right wrist. DISCUSSION AND PLAN: She is being started on antibiotics that should cover Strep species. I will repeat electrolytes tomorrow. We will also get a CBC. I will give her 0.5 L of fluid as clinically, she appears to be dry. Critical Care will follow along in this location. Job ID: [id number]
--- NOTE | 2019-08-06 11:35 | PRG ---
DATE OF SERVICE: 08/06/2019 The patient was seen and examined, I agree with Allison Paulson's evaluation on 08/06/2019. The patient is a 68-year-old woman, well known to us from subarachnoid hemorrhage. She re-presented with hydrocephalus and had an EVD replaced. We raised the drains to 20 yesterday and have clamped this morning. The patient seems just slightly less verbally interactive, although she is alert and tracks the examiner and follows commands. We will plan a head CT tomorrow and generally assess radiographically and clinically, how she is tolerating the EVD clamping. Job ID: [id number]
[2019-08-06] MEDS: Sodium Chloride 0.9% 1,000 ML IV SCH (13:02)
[2019-08-07] MEDS: CEFAZOLIN 2 GM in Premix Bag 1 BAG IVPB SCH ×3 (01:16→17:52)
[2019-08-07] MEDS: niMODipine 30 MG CAP PO SCH ×6 (01:17→21:42)
[2019-08-07 04:52] LABS: #Eosinphils 0.1 thou/uL (0.0-0.7); #Lymphocytes 1.6 thou/uL (1.20-3.40); #Neutrophils 6.5 thou/uL (1.40-6.50); %Basophils 0.4 % (0.0-1.0); %Eosinophils 1.6 % (0.0-10.0); %Lymphocytes 17.5 % (21.0-51.0); %Monocytes 10.5 % (0.0-10.0); Hemoglobin 8.8 g/dL (12.0-16.0); Mean Corpuscular HGB CONC 32.7 g/dL (32.0-36.0); Mean Corpuscular Hemoglobin 31.6 pg (27.0-31.0); Mean Corpuscular Volume 96.8 fL (78.0-98.0); Mean Platelet Volume 7.5 fL (7.4-10.4); Platelet Count 520 thou/uL (130-400); RBC Distribution Width 12.8 % (11.5-14.5); Red Blood Cell (RBC) Count 2.78 mill/uL (4.20-5.40); White Blood Cell (WBC) Count 9.3 thou/uL (4.8-10.8)
[2019-08-07 05:16] LABS: Phosphorus 2.8 mg/dL (2.3-4.7)
[2019-08-07 05:17] LABS: Anion Gap 11 mmol/L (10-20); BUN (Urea Nitrogen) 12 mg/dL (9.8-20.1); Calc. Creatinine Clearance 106 mL/min (70-130); Calcium 8.3 mg/dL (7.8-10.44); Carbon Dioxide 27 mmol/L (23-31); Chloride 101 mmol/L (98-107); Estimated GFR-MDRD Greater than 90; Glucose 111 mg/dL (80-115); Magnesium 2.1 mg/dL (1.6-2.6); Potassium 3.8 mmol/L (3.5-5.1); Sodium 135 mmol/L (136-145)
--- NOTE | 2019-08-07 06:27 | PDOC.FM ---
- Subjective Subjective: No events overnight. Had EVD clamped yesterday until 3pm, currently set to 10. Pt continues to be obtunded, only withdraws to painful stimulus. Large decline from her mental status 2 days ago. - Objective MAR Reviewed: Yes Vital Signs & Weight: Vital Signs (12 hours) Temp Pulse Ox 08/07/19 04:00 98.2 F 08/07/19 00:00 98 F 08/06/19 20:00 97.8 F 100 08/06/19 19:00 98.2 F Weight Admit Weight 70.364 kg Weight 70.364 kg Most Recent Monitor Data Heart Rate from ECG 70 NIBP 135/66 NIBP BP-Mean 89 Respiration from ECG 21 SpO2 100 I&O: 08/05/19 08/06/19 08/07/19 06:59 06:59 06:59 Intake Total 2784 1514.6 2254 Output Total 1516 1746 2211 Balance 1268 -231.4 43 Result Diagrams: 08/07/19 04:00 08/07/19 04:00 Phys Exam - Physical Examination Obtunded Dry MM Respiratory: no wheezing, clear to auscultation bilateral Cardiovascular: RRR, no significant murmur Gastrointestinal: soft Musculoskeletal: pulses present Withdrawals to pain Dx/Plan - Plan Plan: Encephalopathy with Recent SAH and New finding of Hydrocephalus on CT this admission - Neurosurgery consulted, appreciate recs; EVD raised to 20 and clamped yesterday. Repeat CT pending read this AM - PT/OT consulted Fever 2/2 likely neurological etiology - Blood and urine cultures neg. - Continue Anceph for EVD Hyponatremia, improved Hx of Elevated TSH - Repeat TSH 9.2 Code Status: FULL DVT ppx: SCDs GI ppx: Pepcid Lines: Central line 07/19 Addendum - Attending - Attending Attestation Date/Time: 08/07/19 0624 I personally evaluated the patient and discussed the management with Dr. Lopez I agree with the History, Examination, Assessment and Plan documented above with any addition or exceptions noted below.
[2019-08-07] MEDS: Sodium Chloride 1 GM TAB PO SCH ×2 (08:27→21:45)
--- NOTE | 2019-08-07 09:34 | PRG ---
DATE OF SERVICE: 08/07/2019 The patient continues to be slightly less interactive than her prior exams. She will wake up stimulation and open her eyes, while wiggle her feet this morning, she is not verbal. Because of this decline in mental status, we changed her EVD settings at 10 cm of water. She has then had 2 to 5 mL out an hour. Her ICPs have ranged 9 to 11. Her sodium today is 135. Her white count continues to be normal. She has been afebrile. The patient continues to be less interactive despite changing of her EVD settings. Her repeat CT this morning shows mild stable ventriculomegaly. At this time, we will leave her EVD currently set at 10. We will discuss with Dr. Dunaway, any further adjustments. Job ID: [id number] [facility]
--- NOTE | 2019-08-07 09:54 | CT ---
PRELIMINARY REPORT/[facility]/EMERGENCY AFTER HOURS PROCEDURE: EXAM: CT Head Without Intravenous Contrast. CLINICAL HISTORY: F/U SP SAH, HCP TECHNIQUE: Axial computed tomography images of the head/brain without intravenous contrast. COMPARISON: CT\SR - CT BRAIN WO CON - 08/02/2019 08:13 PM RUBBER PRODUCTION MACHINE OPERATOR FINDINGS: Since the prior examination, there is interval placement of shunt catheter with its tip in the fronta l horn of the right lateral ventricle through the right frontal approach. The size of the ventricles is not significantly changed. Intracranial pressure monitor is unchanged. Periventricular white ma tter change versus subependymal fluid resorption is unchanged. No midline shift or mass-effect is s een. No intraparenchymal hemorrhage is seen. The brainstem and cerebellum appear within normal limi ts. Coils in the suprasellar cisterns are unchanged. Mild volume loss is seen. IMPRESSION: No evidence of hydrocephalus since prior examination. Findings as described above ELECTRONICALLY SIGNED BY: Kian Posada MD Aug 07, 2019 6:04:24 AM RUBBER PRODUCTION MACHINE OPERATOR This report is intended for review by the ordering physician only, in accordance of law. If you recei ve this report in error, please call [facility] at [phone]. FINAL REPORT EMERGENCY AFTER HOURS CT BRAIN WITHOUT CONTRAST: COMPARISON: 08/02/19. FINDINGS/IMPRESSION: I DISAGREE with the findings and impression given in the preliminary report per [facility] phys sam. There has been interval placement of a ventriculostomy catheter with its tip in the right lateral niecy tricle. There is no evidence of intracranial hemorrhage. The ventricles are still prominent consisten t with hydrocephalus.
[2019-08-07] MEDS ORDERED: Lactated Ringer's 1,000 ML IV SCH (10:45)
--- NOTE | 2019-08-07 11:08 | PRG ---
DATE OF SERVICE: 08/07/2019 SERVICE: Pulmonary Medicine. INTERVAL HISTORY: The patient is doing okay from respiratory standpoint. She cannot provide any additional elements to the history. Overnight, she has been stable from a neurologic perspective. This morning, she had a CT scan of the head. Otherwise, there is no interval change to her condition. PHYSICAL EXAMINATION: VITAL SIGNS: Afebrile; pulse 78; blood pressure 118/63; respirations 24; saturation 98%, currently on room air. GENERAL: The patient is awake, but somnolent. With stimulation, she will follow some simple commands. HEENT: Normocephalic, atraumatic. Sclerae white. Conjunctivae pink. Oral mucosa is moist without lesions. LUNGS: Decent air entry. There is no prolonged expiratory phase or wheezing present today. HEART: Normal rate and regular. ABDOMEN: Soft, nontender, nondistended. Bowel sounds are positive. MUSCULOSKELETAL: No cyanosis or clubbing. There is no pitting in the bilateral lower extremities. She has skin tenting throughout. The right hand erythema is regressing. LABORATORY DATA: WBC 9.3, hemoglobin 8.8 and stable, platelets 520,000. Sodium 135. Basic metabolic profile is otherwise unremarkable. Magnesium and phosphorous fall within normal limits. TSH is elevated and the T4 level is reduced. Urine culture and blood culture x2 are unremarkable. IMAGING: CT of the brain demonstrates no interval change. ASSESSMENT: 1. Hydrocephalus, status post external ventricular drain placement. 2. Subarachnoid hemorrhage, secondary to aneurysmal bleed. 3. Hyponatremia, improving. 4. Cellulitis of the wrist. DISCUSSION AND PLAN: The patient remains slightly volume depleted. I am going to repeat 1 L of saline today. She will remain in the ICU until the EVD can be successfully removed. Pulmonary/Critical Care will follow along. Job ID: [id number]
[2019-08-07] MEDS ORDERED: Famotidine 20 MG TAB PO SCH (11:45)
[2019-08-07] MEDS: Sodium Chloride 0.9% 1,000 ML IV SCH ×2 (12:09→17:51)
[2019-08-07] MEDS: Famotidine 40 MG/5 ML Oral Suspension PER TUBE SCH (12:21)
[2019-08-07] MEDS: Famotidine 20 MG TAB PO SCH (21:42)
[2019-08-08] MEDS: CEFAZOLIN 2 GM in Premix Bag 1 BAG IVPB SCH ×3 (01:02→17:32)
[2019-08-08] MEDS: niMODipine 30 MG CAP PO SCH ×6 (01:03→22:10)
[2019-08-08] MEDS: Levothyroxine Sodium 25 MCG TAB PO SCH (05:10)
[2019-08-08 05:12] LABS: Anion Gap 10 mmol/L (10-20); BUN (Urea Nitrogen) 10 mg/dL (9.8-20.1); Calc. Creatinine Clearance 110 mL/min (70-130); Calcium 8.4 mg/dL (7.8-10.44); Carbon Dioxide 27 mmol/L (23-31); Chloride 100 mmol/L (98-107); Estimated GFR-MDRD Greater than 90; Glucose 98 mg/dL (80-115); Potassium 3.7 mmol/L (3.5-5.1); Sodium 133 mmol/L (136-145)
--- NOTE | 2019-08-08 06:42 | PDOC.FM ---
- Subjective Subjective: No overnight events. She is about the same as yesterday but able to squeeze your fingers when you ask her. She is scheduled for shunt placement later today at 2pm. Denies pain. - Objective MAR Reviewed: Yes Vital Signs & Weight: Vital Signs (12 hours) Temp Pulse Ox 08/08/19 04:00 98.3 F 08/08/19 00:00 98.4 F 08/07/19 20:00 98.2 F 100 Weight Admit Weight 70.364 kg Weight 65.6 kg Most Recent Monitor Data Heart Rate from ECG 74 NIBP 116/64 NIBP BP-Mean 86 Respiration from ECG 21 SpO2 100 I&O: 08/06/19 08/07/19 08/08/19 06:59 06:59 06:59 Intake Total 1514.6 3180 2719 Output Total 1746 2361 3359 Balance -231.4 819 -606 Result Diagrams: 08/07/19 04:00 08/08/19 04:00 Phys Exam - Physical Examination Constitutional: NAD HEENT: moist MMs Respiratory: no wheezing, clear to auscultation bilateral Cardiovascular: RRR, no significant murmur Gastrointestinal: soft, positive bowel sounds Musculoskeletal: no edema opens eyes to voice. Wiggles toes and squeezes hands. Deviation from normal: lethargic Skin: normal turgor Dx/Plan - Plan Plan: Encephalopathy with Recent SAH and New finding of Hydrocephalus on CT this admission - Neurosurgery consulted, appreciate recs; CT 08/07 with no interval changes. - Shunt placement today - PT/OT consulted Fever 2/2 likely neurological etiology - Blood and urine cultures neg. - Continue Anceph for EVD Hyponatremia - Continue to monitor Hx of Elevated TSH - Repeat TSH 9.2 - Free T4 4.0 - Started Levothyroxine 25mcg daily Code Status: FULL DVT ppx: SCDs GI ppx: Pepcid Lines: Central line 07/19 Addendum - Attending - Attending Attestation Date/Time: 08/08/19 1036 I personally evaluated the patient and discussed the management with Dr. Lopez. I agree with the History, Examination, Assessment and Plan documented above with any addition or exceptions noted below. Patient here as readmission after major SAH. She is having ventriculomegaly associated with hydrocephalus. Her mentation is not improving much with EVD. She will be going for MECHANICAL CAD DESIGNER shunt later today. Labs and vitals stable. Major mgmt per NSGY at this time.
--- NOTE | 2019-08-08 08:04 | PRG ---
DATE OF SERVICE: 08/08/2019 SUBJECTIVE: This patient remains in the intensive care unit with an EVD in place. She is scheduled to have shunt internalization today. OBJECTIVE: VITAL SIGNS: Temperature is 98.3, pulse 76, blood pressure 138/72, and O2 saturation 97%. Total intake 2719, output 3359. NEUROLOGICAL: She will open her eyes. She will squeeze the right hand to command. She tries to protrude her tongue. She wiggles her feet. She does not vocalize. HEENT: Her pupils are reactive. Oropharynx is clear. NECK: No JVD. LUNGS: Clear. CARDIAC: S1 and S2. Regular. ABDOMEN: Soft and nontender. EXTREMITIES: No edema. LABORATORY DATA: Sodium 133, potassium 3.7, chloride 100, CO2 of 27, BUN 10, creatinine 0.5, and glucose 98. T4 level is 4.0. TSH was 9.2. ASSESSMENT: 1. Status post aneurysmal bleed, subsequent coiling. 2. Hydrocephalus. 3. Hyponatremia. 4. Hypothyroid. PLAN: 1. The patient will have shunt internalization day. 2. She will be started on thyroid supplementation. 3. Resume tube feeding after surgery. Job ID: [id number]
--- NOTE | 2019-08-08 09:30 | PRG ---
DATE OF SERVICE: 08/08/2019 The patient is a 68-year-old female, known to us from subarachnoid hemorrhage, who has developed hydrocephalus. She has been treated with replacement of her EVD and is currently set at 10 cm of water. EVD has been functional with anywhere from 3 to 15 mL out overnight. The ICP has been running from around 6 to 9. She continues to be less responsive than from her prior exams. The patient has been afebrile. Vitals are stable. Pupils are equal and reactive. She will open her eyes to stimulation. She has seen spontaneously moving the lower extremities, but she is not following commands from me this morning. We have discussed with Dr. Dunaway. We will go ahead and clamp her EVD, and the patient has been scheduled for a OCCUPATIONAL THERAPY PROGRAM DIRECTOR shunt later today. Job ID: [id number]
[2019-08-08] MEDS: Famotidine 20 MG TAB PO SCH ×2 (09:46→22:10)
[2019-08-08] MEDS: Sodium Chloride 1 GM TAB PO SCH ×2 (09:46→22:17)
[2019-08-08] MEDS ORDERED: PROPOFOL 200 MG/20 ML VIAL ONE (10:12)
[2019-08-08] MEDS ORDERED: Glycopyrrolate 0.2 MG/ML 5 ML SYRINGE ONE (10:12)
[2019-08-08] MEDS ORDERED: Lidocaine 1% PF 5 ML VIAL ONE (10:12)
[2019-08-08] MEDS ORDERED: PHENYLEPHRINE-NS 100 MCG/ML 10 ML SYRINGE ONE (10:12)
[2019-08-08] MEDS ORDERED: Rocuronium Bromide 10 MG/ML (10ML VIAL) ONE (10:12)
[2019-08-08] MEDS ORDERED: Sodium Chloride 0.9% 10 ML ONE (12:06)
[2019-08-08] MEDS ORDERED: Fentanyl 100 MCG/2 ML VIAL ONE (12:22)
[2019-08-08] MEDS ORDERED: Lidocaine 1% w/Epinephrine 1:100K 20 ML VIAL ONE (13:08)
[2019-08-08] MEDS ORDERED: Bupivacaine 0.25% HCL 30 ML VIAL ONE (13:08)
--- NOTE | 2019-08-08 15:18 | OP ---
DATE OF PROCEDURE: 08/08/2019 GRAVITY PROSPECTOR: Kelvin Velasquez PA-C CO-SURGEON: Juan M Duckworth MD PROCEDURE PERFORMED: Right ventriculoperitoneal shunt placement. DESCRIPTION OF PROCEDURE: The patient was brought to the operating room and intubated. The previous EVD was removed and the site was stapled. The shunt valve was programmed to a setting of 1.0. The patient was then positioned supine with the head turned in the left and the right parieto-occipital region was shaved, prepped, and draped in sterile fashion, prepped down to the abdomen. Dr. Duckworth entered the room and using the laparoscope assisted in the abdominal opening, he will dictate his portion under separate cover. We performed a curvilinear right parieto-occipital incision and placed a moshe hole, coagulated and opened the dura and alda. The shunt was then passed subcutaneously to the abdomen without difficulty. Next, a ventricular catheter was used, passed into the ventricle without difficulty. This was connected to the valve with the snap shunt assembly. The catheter was placed in the abdomen. All wounds were extensively irrigated and closed in anatomic layers. Job ID: [id number]
[2019-08-09] MEDS ORDERED: CEFAZOLIN 2 GM in Premix Bag 1 BAG IVPB SCH (01:00)
[2019-08-09] MEDS: niMODipine 30 MG CAP PO SCH ×6 (01:44→20:09)
[2019-08-09] MEDS: Levothyroxine Sodium 25 MCG TAB PO SCH (05:01)
[2019-08-09 06:03] LABS: Anion Gap 10 mmol/L (10-20); BUN (Urea Nitrogen) 12 mg/dL (9.8-20.1); Calc. Creatinine Clearance 88 mL/min (70-130); Calcium 8.5 mg/dL (7.8-10.44); Carbon Dioxide 28 mmol/L (23-31); Chloride 102 mmol/L (98-107); Estimated GFR-MDRD Greater than 90; Glucose 127 mg/dL (80-115); Potassium 3.6 mmol/L (3.5-5.1); Sodium 136 mmol/L (136-145)
--- NOTE | 2019-08-09 06:29 | PDOC.FM ---
- Subjective Subjective: Family present in room this morning. She attempts to say hello. Able to squeeze both hands and move her feet. Denies pain. No acute changes overnight. - Objective MAR Reviewed: Yes Vital Signs & Weight: Vital Signs (12 hours) Temp Pulse Ox 08/09/19 04:00 97.9 F 08/09/19 00:00 97.7 F 08/08/19 22:37 97 08/08/19 20:00 98.6 F Weight Admit Weight 70.364 kg Weight 65 kg Most Recent Monitor Data Heart Rate from ECG 82 NIBP 136/56 NIBP BP-Mean 90 Respiration from ECG 18 SpO2 98 I&O: 08/07/19 08/08/19 08/09/19 06:59 06:59 06:59 Intake Total 3180 2719 1373 Output Total 2361 9559 2779 Balance 796 -581 -3791 Result Diagrams: 08/07/19 04:00 08/09/19 05:03 Phys Exam - Physical Examination Constitutional: NAD HEENT: moist MMs Respiratory: no wheezing, clear to auscultation bilateral Cardiovascular: RRR Gastrointestinal: soft, non-tender Musculoskeletal: no edema Squeezes hand and moves feet Skin: normal turgor Dx/Plan - Plan Plan: Encephalopathy with Recent SAH and New finding of Hydrocephalus on CT this admission s/p shunt placement - Neurosurgery consulted, appreciate recs; CT 08/07 with no interval changes. - Shunt placement 08/09 - PT/OT consulted - Transfer orders placed to stroke per neurosurg Fever 2/2 likely neurological etiology - Blood and urine cultures neg. - Continue Anceph Hyponatremia - Continue to monitor Hx of Elevated TSH - Repeat TSH 9.2, Free T4 4.0 - Continue Levothyroxine 25mcg daily Code Status: FULL DVT ppx: SCDs GI ppx: Pepcid Lines: Central line 07/19 Addendum - Attending - Attending Attestation Date/Time: 08/09/19 1002 I personally evaluated the patient and discussed the management with Dr. Lopez. I agree with the History, Examination, Assessment and Plan documented above with any addition or exceptions noted below. Patient overall stable. Some improvement in spontaneous movement this morning. She is s/p U.S. COMMISSIONER shunt placement, POD1. Continue with NSGY recs and await stability for return to placement. Palliative on board.
--- NOTE | 2019-08-09 08:20 | PRG ---
DATE OF SERVICE: 08/09/2019 SUBJECTIVE: Ms. Schuler remains in the CCU. She had a TALENT DEVELOPMENT SPECIALIST shunt placed yesterday. She remains grossly encephalopathic and very poorly communicative. Her was at the bedside this morning. OBJECTIVE: VITAL SIGNS: Her temperature is 97.9, pulse 80, blood pressure 136/56, and O2 saturation 98%. Intake 1373, output 2779. HEENT: Unremarkable. NECK: No adenopathy or JVD. LUNGS: Clear. CARDIAC: S1 and S2. Regular. ABDOMEN: Soft. EXTREMITIES: No edema. NEUROLOGICAL: She is very poorly communicative. LABORATORY DATA: Sodium 136, potassium 3.6, chloride 102, CO2 of 28, BUN 12, creatinine 0.6, and glucose 127. ASSESSMENT: 1. Status post aneurysmal bleed and subsequent coiling. 2. Hydrocephalus, requiring shunt placement. PLAN: Pulmonary status stable. She has a PEG tube for nutritional support. It does not appear that she is going to do good from a TALENT DEVELOPMENT SPECIALIST standpoint. She was started on thyroid supplementation yesterday. She can go to the neurosurgery floor when okay with him. Job ID: [id number]
--- NOTE | 2019-08-09 08:55 | PRG ---
DATE OF SERVICE: 08/09/2019 The patient is postoperative day #1, status post placement of a right LAST MODEL DEPARTMENT SUPERVISOR shunt for hydrocephalus. She was transitioned back to the ICU overnight, where she has been monitored closely and no overnight events. Afebrile. Na 136. On exam this morning, the patient is more alert than prior exams. Her eyes are open and she is interacting some with the . She is able to tolerate her name and she is moving bilateral lower extremities on command. Her incision is clean, dry, and intact. The patient is more alert on postoperative day #1, status post placement of LAST MODEL DEPARTMENT SUPERVISOR shunt. We will continue to follow her exam closely. I will also get with Case Management to begin working on plan for discharge back to intermediate facility in the near future. Job ID: [id number] MTDD
[2019-08-09] MEDS: Famotidine 20 MG TAB PO SCH ×2 (09:43→20:09)
--- NOTE | 2019-08-09 10:50 | OP ---
DATE OF PROCEDURE: 08/08/2019 PREOPERATIVE DIAGNOSIS: Hydrocephalus. POSTOPERATIVE DIAGNOSIS: Hydrocephalus. PROCEDURE PERFORMED: Laparoscopic placement of permanent intraabdominal drain (laparoscopic abdominal portion of WASH HOUSE WORKER shunt). ANESTHESIA: General. ESTIMATED BLOOD LOSS: Minimal. COMPLICATIONS: None. SPECIMEN: None. FINDINGS: Tip of the catheter was up over the liver. DESCRIPTION OF PROCEDURE: The patient was taken to the operating room and laid supine on the operating room table. After general anesthetic was obtained, her chest, abdomen, neck, and scalp were all shaved, prepped, and draped in a sterile fashion while Neurosurgery works on the cranial exposure. A curved incision was made below the umbilicus, cautery dissected down to and scored the fascia. Abdominal cavity was entered bluntly using a Wendy clamp. A 5 mm trocar was placed and high-flow pneumoperitoneum was obtained. Right abdominal 5 mm port was placed. A counter incision was made at the xiphoid and the 5 mm trocar was used to make a hole into the right upper quadrant of the abdomen. As the tubing is tunneled from the cranial exposure, it was placed into the abdominal cavity up over the liver. All the redundancy was taken out of the tubing. All port sites were infiltrated using local anesthetic. There was no injury to any intraabdominal structures. All ports were removed under camera visualization and pneumoperitoneum was let down. PDS was used to close the fascial defect at the umbilicus and the incisions were closed using 4-0 Monocryl and Dermabond. The patient was sent to Recovery in stable condition. All instrument counts, needle counts, and lap counts were correct. Job ID: [id number]
--- NOTE | 2019-08-09 12:50 | PDOC.PALCO ---
Palliative Care Consult - Consult Details Requesting Physician: Dr Bethea Reason for Consult: goals of care, advance directives assistance, assistance with communication prognosis/disease, family support Family Members Present: Endy - Pertinent HPI 68 year old female with previous admission for subarachnoid hemorrhage. Mrs Schuler went to swing bed for rehab and had altered mental status with hydorcephalus, transferred back to [facility] for higher level of care. Rigth BOILERMAKER shunt 08/08/19. states his had no prior health care previously. Limited resources. - Pertinent PMH COPD, Hep C - Social History Smoking Status: Current every day smoker Smoking: cigar Alcohol Use: occasional Drug Use History: marijuana Living Situation: - Medications MAR Reviewed: Yes - Allergies Allergies/Adverse Reactions: Allergies Allergy/AdvReac Type Severity Reaction Status Date / Time codeine Allergy Nausea Verified 09/08/17 16:37 - Subjective Patient is awake, but non verbal. Purposeful eye contact, moves extremities. - ROS Non Response: due to mental status - Objective Vital Signs: Vital Signs - Most Recent Temp Pulse Resp BP Pulse Ox 99.0 F 70 26 H 135/76 99 08/09/19 12:00 08/05/19 10:05 08/02/19 18:56 08/05/19 10:05 08/09/19 08:00 - Physical Exam Constitutional: ill appearing HEENT: EOMI, moist MMs, sclera anicteric Respiratory: clear to auscultation bilateral, unlabored breathing Cardiovascular: RRR Gastrointestinal: soft, positive bowel sounds Musculoskeletal: no cyanosis, pulses present Neurology: moves all 4 limbs Skin: cap refill <2 seconds Psychiatric: flat affect - Problem List (1) Palliative care encounter Code(s): Z51.5 - ENCOUNTER FOR PALLIATIVE CARE Current Visit: Yes Status: Acute (2) Hydrocephalus Code(s): G91.9 - HYDROCEPHALUS, UNSPECIFIED Current Visit: Yes Status: Acute (3) Brain aneurysm Current Visit: No Status: Acute - Plan/Recommendations Plan: Family meeting with patient and Kristi Willard RNballet master/mistress. Discussed fragile state of patient and long expected recovery. Family with limited resources and difficult for family to come. borrows his daughters car and difficult to pay for gas. *Kristi Willard is securing meal passes for , provided info on resource for [facility] to assist with gas expense. *Goal is for patient to remain with full resuscitative measures *Discharge to rehab *dental specialist is for patient to return home Provided teaching in relation to fragile state, requested to share what "he would tell others" to gain insight to understanding. with limited insight to disease process, rehab. Discussed "Hope for the Best but plan for the worst" in relation to potential complications. Palliative Care will continue to communicate with the , he will notify when he is able to visit and coordination of care for updates on prognosis and progress. [75] minutes spent on this encounter with >50% of the time in counseling and coordination of care. Thank you for this very appropriate consult.
[2019-08-10] MEDS: niMODipine 30 MG CAP PO SCH ×6 (00:47→21:35)
[2019-08-10 06:02] LABS: Anion Gap 13 mmol/L (10-20); BUN (Urea Nitrogen) 15 mg/dL (9.8-20.1); Calc. Creatinine Clearance 77 mL/min (70-130); Calcium 8.8 mg/dL (7.8-10.44); Carbon Dioxide 26 mmol/L (23-31); Chloride 101 mmol/L (98-107); Estimated GFR-MDRD 89; Glucose 115 mg/dL (80-115); Potassium 3.8 mmol/L (3.5-5.1); Sodium 136 mmol/L (136-145)
--- NOTE | 2019-08-10 06:08 | PRG ---
DATE OF SERVICE: 08/10/2019 SUBJECTIVE: The patient is postoperative day #2, status post placement of her right TRAINING INTERN shunt following development of delayed hydrocephalus after acute subarachnoid hemorrhage. The patient is much more alert since placement of the shunt. Nursing reports she was very interactive overnight, attempting to speak although garbled at times. She is following commands. No overnight events. OBJECTIVE: On exam this morning, the patient awakens easily. Her pupils are equal and reactive, although she has some ongoing ocular dysfunction. She is moving all 4s and following commands. She does attempt to tell me her name. The patient is much more alert and doing well since placement of her TRAINING INTERN shunt. We will begin to work on placement back to [facility] facility. I feel that she is appropriate to go to the floor and I wrote transfer orders. Job ID: [id number] [facility]
--- NOTE | 2019-08-10 06:33 | PDOC.FM ---
- Subjective Subjective: No events overnight. Was to be transferred to stroke but there are no beds available. Denies pain. - Objective MAR Reviewed: Yes Vital Signs & Weight: Vital Signs (12 hours) Temp Pulse Ox 08/10/19 04:00 98.8 F 08/10/19 00:00 99.0 F 08/09/19 20:00 98.6 F 100 Weight Admit Weight 70.364 kg Weight 59 kg Most Recent Monitor Data Heart Rate from ECG 75 NIBP 121/58 NIBP BP-Mean 82 Respiration from ECG 17 SpO2 100 I&O: 08/08/19 08/09/19 08/10/19 06:59 06:59 06:59 Intake Total 2719 1373 1654 Output Total 3359 2779 1675 Balance -640 -1406 -21 Result Diagrams: 08/07/19 04:00 08/10/19 04:00 Phys Exam - Physical Examination Constitutional: NAD opens eyes to voice Dry MM Respiratory: no wheezing, clear to auscultation bilateral Cardiovascular: RRR Gastrointestinal: soft, positive bowel sounds Musculoskeletal: no edema squeezes hand bilaterally Skin: no rash, normal turgor Dx/Plan - Plan Plan: Encephalopathy with Recent SAH and New finding of Hydrocephalus on CT this admission s/p shunt placement - Neurosurgery consulted, appreciate recs; CT 12/ with no interval changes. - POD #2 from [employer] shunt placement 08/09 - PT/OT consulted, SNF goal for placement. CM consulted - Transfer to stroke when bed becomes available Fever 2/2 likely neurological etiology - Blood and urine cultures neg. - Continue Anceph Hypothyroidism - Continue Levothyroxine 25mcg daily - Recheck TSH in 6wks Code Status: FULL DVT ppx: SCDs GI ppx: Pepcid Lines: Central line 07/19 Addendum - Attending - Attending Attestation Date/Time: 08/10/19 1021 I personally evaluated the patient and discussed the management with Dr. Lopez. I agree with the History, Examination, Assessment and Plan documented above with any addition or exceptions noted below. Patient overall stable on POD2 from DIRECTOR SUPPLY CHAIN shunt placement. Stable for transfer to stroke unit. Work on post acute care placement.
[2019-08-10] MEDS: Levothyroxine Sodium 25 MCG TAB PO SCH (08:33)
[2019-08-10] MEDS: Famotidine 20 MG TAB PO SCH ×2 (08:33→21:05)
--- NOTE | 2019-08-10 09:09 | PRG ---
DATE OF SERVICE: 08/10/2019 SUBJECTIVE: Ms. Schuler is in the ICU, awaiting a bed on the floor. Overall, her status has been stable. She is starting to speak more. OBJECTIVE: VITAL SIGNS: Temperature 98.8, pulse 74, blood pressure 130/57, O2 saturation 100%. HEENT: She has a poor gag reflex. Some excess secretions present. NECK: No adenopathy or JVD. LUNGS: Coarse breath sounds. CARDIOVASCULAR: S1 and S2. Regular. ABDOMEN: Soft. EXTREMITIES: No edema. NEUROLOGIC: She can squeeze hands and move feet to command. LABORATORY DATA: Sodium 138, potassium 3.8, BUN 15, creatinine 0.6, glucose 115. ASSESSMENT: 1. Status post aneurysmal bleed with subarachnoid hemorrhage. 2. Hydrocephalus. PLAN: Awaiting transfer out to the floor for further rehab. Her pulmonary status is stable. Job ID: [id number]
[2019-08-11] MEDS: niMODipine 30 MG CAP PO SCH ×6 (02:27→20:45)
[2019-08-11] MEDS: Levothyroxine Sodium 25 MCG TAB PO SCH (05:54)
[2019-08-11 06:18] LABS: Anion Gap 10 mmol/L (10-20); BUN (Urea Nitrogen) 15 mg/dL (9.8-20.1); Calc. Creatinine Clearance 100 mL/min (70-130); Calcium 8.8 mg/dL (7.8-10.44); Carbon Dioxide 29 mmol/L (23-31); Chloride 102 mmol/L (98-107); Estimated GFR-MDRD Greater than 90; Glucose 113 mg/dL (80-115); Potassium 3.6 mmol/L (3.5-5.1); Sodium 137 mmol/L (136-145)
--- NOTE | 2019-08-11 06:44 | PDOC.FM ---
- Subjective Subjective: NAEO. No concerns per nursing. Patient resting comfortably in bed. Denies any pain. States she is doing okay overall. Unable to understand most words but can understand yes/no. Patient able to move limbs and squeeze my hand. - Objective MAR Reviewed: Yes Vital Signs & Weight: Vital Signs (12 hours) Temp Pulse Resp BP Pulse Ox 08/11/19 05:00 98.0 F 85 16 136/83 95 08/11/19 00:40 98 F 85 16 119/78 100 08/10/19 21:00 98.5 F 82 16 131/79 96 Weight Admit Weight 70.364 kg Weight 66.361 kg Most Recent Monitor Data Heart Rate from ECG 79 NIBP 133/64 NIBP BP-Mean 94 Respiration from ECG 20 SpO2 100 I&O: 08/09/19 08/10/19 08/11/19 06:59 06:59 06:59 Intake Total 1373 1654 403 Output Total 3935 1675 1695 [facility] -1406 -21 -1292 Result Diagrams: 08/07/19 04:00 08/11/19 05:37 Phys Exam - Physical Examination Constitutional: NAD HEENT: PERRLA, moist MMs, sclera anicteric Neck: supple, full ROM Respiratory: clear to auscultation bilateral Cardiovascular: RRR, no significant murmur Gastrointestinal: soft, non-tender, no distention, positive bowel sounds Musculoskeletal: no edema opens eyes spont and to command; squeezes hand to command; responds to pain moves all limbs; unable to verbally understand - mumbles/garbles, says y/n Psychiatric: normal affect Deviation from normal: improved alertness compared to previous Skin: no rash, normal turgor, cap refill <2 seconds Dx/Plan (1) Encephalopathy Code(s): G93.40 - ENCEPHALOPATHY, UNSPECIFIED Status: Acute (2) Hydrocephalus Code(s): G91.9 - HYDROCEPHALUS, UNSPECIFIED Status: Acute (3) Palliative care encounter Code(s): Z51.5 - ENCOUNTER FOR PALLIATIVE CARE Status: Acute (4) Brain aneurysm Status: Acute (5) Hyponatremia Code(s): E87.1 - HYPO-OSMOLALITY AND HYPONATREMIA Status: Acute (6) SAH (subarachnoid hemorrhage) Code(s): I60.9 - NONTRAUMATIC SUBARACHNOID HEMORRHAGE, UNSPECIFIED Status: Acute (7) COPD (chronic obstructive pulmonary disease) Status: Chronic - Plan Plan: #Encephalopathy with Recent SAH and New finding of Hydrocephalus on CT this admission s/p shunt placement - Neurosurgery consulted, appreciate recs; CT 08/07 with no interval changes. - POD #3 from ROTOR BALANCER shunt placement 08/09 - PT/OT consulted, SNF goal for placement. CM consulted for dc planning. #Fever 2/2 likely neurological etiology - Blood and urine cultures neg. - ABx discontinued. Afebrile. Will continue to monitor VS. #Hypothyroidism - Continue Levothyroxine 25mcg daily - Recheck TSH in 6wks #COPD - DuoNeb PRN Code Status: FULL DVT ppx: SCDs GI ppx: Pepcid Dispo: Pending placement to SNF. Case discussed with Dr. Brown. Addendum - Attending - Attending Attestation Date/Time: 08/11/19 1012 I personally evaluated the patient and discussed the management with Dr. Shah. I agree with the History, Examination, Assessment and Plan documented above with any addition or exceptions noted below. Patient with mild improvement this morning. Vitals stable. She is now orienting to voice, responds to simple commands, and vocalizes somewhat. NSGY on board. Working on placement. Should be stable for d/c once that is set up.
[2019-08-11] MEDS: Famotidine 20 MG TAB PO SCH ×2 (08:25→20:45)
--- NOTE | 2019-08-11 09:14 | PRG ---
DATE OF SERVICE: 08/11/2019 SUBJECTIVE: Ms. Schuler was moved up to the floor yesterday. She seems to be doing reasonably well. She is still very dysarthric. OBJECTIVE: VITAL SIGNS: Temperature is 98.0, pulse 75, respirations 16, O2 saturation 97%, and blood pressure 133/84. HEENT: Unremarkable. NECK: No adenopathy or JVD. LUNGS: Coarse breath sounds. CARDIAC: S1, S2. Regular. ABDOMEN: Soft. EXTREMITIES: No edema. ASSESSMENT: Status post subarachnoid hemorrhage with hydrocephalus. PLAN: Main issue now is rehabilitative in nature. She will continue nebulization treatments for COPD. No further Pulmonary recommendations. I will sign off. Please recall if further assistance is needed. Job ID: [id number]
--- NOTE | 2019-08-11 10:05 | PRG ---
DATE OF SERVICE: 08/11/2019 SUBJECTIVE: The patient was transitioned to the floor yesterday. She was doing well with no overnight events. She has been afebrile. OBJECTIVE: GENERAL: This morning, the patient awakens easily. HEENT: Her pupils are equal and reactive. She has ongoing ocular dysfunction. NEUROLOGIC: She is moving all 4s and attempting to communicate with me; although, she does have significant dysarthria. She is able to tell me she has a slight headache. The patient appears to be neurologically stable. I am working with Case Management with plan to transition back to a halfway facility. Job ID: [id number]
[2019-08-11 11:35] VITALS: BMI 25.0
[2019-08-12] MEDS: niMODipine 30 MG CAP PO SCH ×5 (00:49→16:53)
[2019-08-12] MEDS: Levothyroxine Sodium 25 MCG TAB PO SCH (05:54)
--- NOTE | 2019-08-12 06:53 | PDOC.FM ---
- Subjective Subjective: NAEO. Patient resting comfortably in bed. Able to squeeze my hand and verbalize yes/no. Patient has no complaints or concerns this AM. No concerns per nursing. - Objective MAR Reviewed: Yes Vital Signs & Weight: Vital Signs (12 hours) Temp Pulse Resp BP Pulse Ox 08/12/19 03:00 97.9 F 75 16 131/82 97 08/12/19 00:00 97.9 F 75 16 129/79 94 L 08/11/19 19:52 97.6 F 81 16 141/86 H 96 Weight Admit Weight 70.364 kg Weight 65.635 kg Most Recent Monitor Data Heart Rate from ECG 79 NIBP 133/64 NIBP BP-Mean 94 Respiration from ECG 20 SpO2 100 I&O: 08/10/19 08/11/19 08/12/19 06:59 06:59 06:59 Intake Total 1909 771 0241 Output Total 1675 1695 2200 Balance -21 -1292 -1051 Result Diagrams: 08/07/19 04:00 08/11/19 05:37 Phys Exam - Physical Examination Constitutional: NAD HEENT: PERRLA, moist MMs, sclera anicteric Neck: supple, full ROM Respiratory: clear to auscultation bilateral Cardiovascular: RRR, no significant murmur Gastrointestinal: soft, non-tender, no distention, positive bowel sounds Musculoskeletal: pulses present exam unchanged from previous. Opens eyes spont, answers yes/no questions able to move limbs and squeeze my hand, makes incomprehansible sounds Psychiatric: normal affect Skin: no rash, normal turgor, cap refill <2 seconds Dx/Plan (1) Encephalopathy Code(s): G93.40 - ENCEPHALOPATHY, UNSPECIFIED Status: Acute (2) Hydrocephalus Code(s): G91.9 - HYDROCEPHALUS, UNSPECIFIED Status: Acute (3) Palliative care encounter Code(s): Z51.5 - ENCOUNTER FOR PALLIATIVE CARE Status: Acute (4) Brain aneurysm Status: Acute (5) Hyponatremia Code(s): E87.1 - HYPO-OSMOLALITY AND HYPONATREMIA Status: Acute (6) SAH (subarachnoid hemorrhage) Code(s): I60.9 - NONTRAUMATIC SUBARACHNOID HEMORRHAGE, UNSPECIFIED Status: Acute (7) COPD (chronic obstructive pulmonary disease) Status: Chronic - Plan Plan: #Encephalopathy with Recent SAH and New finding of Hydrocephalus on CT this admission s/p shunt placement - Neurosurgery consulted, appreciate recs; CT 08/07 with no interval changes. - POD #4 from [employer] shunt placement 08/09 - PT/OT consulted, SNF goal for placement. CM consulted for dc planning. #Fever 2/2 likely neurological etiology - Blood and urine cultures neg. - ABx discontinued. Afebrile. Will continue to monitor VS. #Hypothyroidism - Continue Levothyroxine 25mcg daily - Recheck TSH in 6wks #COPD - DuoNeb PRN - Pulm consulted, appreciate recs. Code Status: FULL DVT ppx: SCDs GI ppx: Pepcid Dispo: Pending placement to SNF. Case discussed with Dr. Brown. Addendum - Attending - Attending Attestation Date/Time: 08/12/19 1110 I personally evaluated the patient and discussed the management with Dr. Shah. I agree with the History, Examination, Assessment and Plan documented above with any addition or exceptions noted below. Patient stable, awaiting placement.
[2019-08-12] MEDS: Famotidine 20 MG TAB PO SCH (10:23)
[2019-08-12 11:47] LABS: Anion Gap 10 mmol/L (10-20); BUN (Urea Nitrogen) 15 mg/dL (9.8-20.1); Calc. Creatinine Clearance 93 mL/min (70-130); Calcium 9.3 mg/dL (7.8-10.44); Carbon Dioxide 29 mmol/L (23-31); Chloride 102 mmol/L (98-107); Estimated GFR-MDRD Greater than 90; Glucose 126 mg/dL (80-115); Potassium 3.8 mmol/L (3.5-5.1); Sodium 137 mmol/L (136-145)
[2019-08-12 16:54] VITALS: TEMP 98.4
[2019-08-12 19:55] VITALS: BP 122/72
--- NOTE | 2019-08-15 10:50 | DIS ---
DATE OF ADMISSION: 08/02/2019 DATE OF DISCHARGE: 08/12/2019 ADMITTING ATTENDING: Pawan Morrissey MD DISCHARGE ATTENDING: Hardy Brown MD CONSULTS: Neurosurgery, Pulmonology, Physical and Occupational Therapy, Palliative Care, and Case Management. PROCEDURES: 1. On 08/08/2019, right ventriculoperitoneal shunt placement by Dr. Dunaway. 2. Brain CT on 08/02/2019, showing a stable moderate hydrocephalus. 3. On 08/02/2019, external ventricular catheter placement by Dr. Manning. 4. Brain CT on 08/07/2019 at showing prominent hydrocephalus. DISCHARGE MEDICATIONS: 1. Synthroid 25 mcg oral every morning. 2. Nimodipine 60 mg oral every 4 hours. 3. Tylenol-elixir 650 mg per tube every 6 hours as needed. 4. Dulcolax 10 mg rectal daily as needed. 5. Famotidine 20 mg per tube every 12 hours. 6. DuoNeb 3 mL nebulizer every 4 hours as needed. 7. Milk of magnesium 30 mL daily as needed. DISCONTINUED MEDICATIONS: Sodium chloride 4 g oral 3 times daily. PRIMARY DIAGNOSES: 1. Encephalopathy with recent subarachnoid hemorrhage, status post shunt placement. 2. Fever secondary to central neurological cause. 3. Hypothyroidism. SECONDARY DIAGNOSIS: Chronic obstructive pulmonary disease. HISTORY OF PRESENT ILLNESS/HOSPITAL COURSE: This is a 68-year-old female, who was previously discharged the day prior after subarachnoid hemorrhage status post coiling. The patient had been sent to a swing bed in [place], was found to have worsening mental status and consistent hydrocephalus. The patient was sent back to [facility] as a direct admission as the CT showed continued hydrocephalus. Neurosurgery was consulted. The patient was admitted to the ICU for encephalopathy and worsening hydrocephalus. The patient's NIH score had worsened from the swing bag too. The patient was also started on vancomycin and meropenem for a fever on admission. The patient remained in ICU for several days, monitoring her vital signs, mental status. She did have a CARBON BRUSH MAKER shunt placed during her stay. She was admitted up to the medical floor where her mental status was continued to be monitored. On 08/12, she was stable for discharge and was discharged to the swing bed as [place]. Palliative Care was consulted during the patient's stay. The patient wishes to remain a full code. Disposition stable, but guarded. DISCHARGE INSTRUCTIONS: 1. Location: Swing bed in [place]. 2. Diet: PEG tube feeds. 3. Activity: Ad ailyn with records assistant. 4. Follow up with Dr. Hernandez at [facility] in [place] in the next day. Job ID: [id number]
== END 2019-08-12 19:43 | disposition short-term general hospital (02) | DRG 25 ==
LOC: 2SE 19:09 → CCU 21:05 → SJJU 08-10 17:19
PROVIDERS: ADMIT Emergency Medicine; ATTEND Emergency Medicine
PROC: 009630Z Drainage of Cerebral Ventricle with Drainage Device, Percutaneous Approach (ICD-10-PCS; principal; 2019-08-02)
PROC: 00160J6 Bypass Cerebral Ventricle to Peritoneal Cavity with Synthetic Substitute, Open Approach (ICD-10-PCS; 2019-08-08)
PROC: 0W9G40Z Drainage of Peritoneal Cavity with Drainage Device, Percutaneous Endoscopic Approach (ICD-10-PCS; 2019-08-08)
DX: G91.9 Hydrocephalus, unspecified (principal); R40.2122 Coma scale, eyes open, to pain, at arrival to emergency department; R40.2222 Coma scale, best verbal response, incomprehensible words, at arrival to emergency department; E87.1 Hypo-osmolality and hyponatremia; G93.40 Encephalopathy, unspecified; L03.113 Cellulitis of right upper limb; R29.720 NIHSS score 20; J44.9 Chronic obstructive pulmonary disease, unspecified; Z51.5 Encounter for palliative care; B19.20 Unspecified viral hepatitis C without hepatic coma; E03.9 Hypothyroidism, unspecified; F17.210 Nicotine dependence, cigarettes, uncomplicated; R47.1 Dysarthria and anarthria; I67.1 Cerebral aneurysm, nonruptured; R40.2362 Coma scale, best motor response, obeys commands, at arrival to emergency department; Z88.8 Allergy status to other drugs, medicaments and biological substances
CPT/HCPCS: 36415; 36416; 70450; 80048; 80202; 83735; 84100; 84145; 84436; 84443; 85025; 87040; 87070; 87086; 87205; J0690; J2001; J2185; J2270; J2704; J3010; J3370; J3490; J7050; S0020

== ENCOUNTER 2019-10-21 11:57 | Outpatient (CLI) | payer MEDICARE ==
--- NOTE | 2019-10-21 13:56 | CT ---
CT BRAIN WITHOUT CONTRAST: Date: 10/21/2019 HISTORY: Follow-up subarachnoid hemorrhage. Patient complains of on and off headaches. COMPARISON: 09/05/2019. FINDINGS: Right posterior parietal ventriculostomy shunt tubing is again seen with tip at the medial aspect of the right lateral ventricle. Ventricular size is stable. No hydrocephalus is seen. Calcifications in the right anterior frontal lobe are stable. The coiled mass in the supraclinoid loc ation on the right is stable as well. No evidence of acute infarct, hemorrhage, midline shift, or abnormal extra-axial fluid collections ar e seen. IMPRESSION: Stable exam. No acute process. POS: [facility]
== END 2019-10-21 11:58 | disposition home or self-care (01) ==
LOC: CT 11:57
PROVIDERS: ATTEND Neurological Surgery
DX: S06.6X0D Traumatic subarachnoid hemorrhage without loss of consciousness, subsequent encounter (principal)
CPT/HCPCS: 70450

== ENCOUNTER 2021-07-18 10:11 | Outpatient (CLI) | payer MEDICARE ==
[2021-07-18 17:26] LABS: SARS-CoV-2 PCR by NAA Not Detected (NotDetected)
== END 2021-07-18 10:12 | disposition home or self-care (01) ==
LOC: LABBT 10:11
PROVIDERS: ATTEND Family Medicine
DX: Z01.812 Encounter for preprocedural laboratory examination (principal); Z20.822 Contact with and (suspected) exposure to COVID-19
CPT/HCPCS: U0003; U0005

== ENCOUNTER 2021-07-19 09:00 | Outpatient (CLI) | payer MEDICARE | END 2021-07-19 09:01 | disposition home or self-care (01) | PROVIDERS: ATTEND Family Medicine | DX: I69.391 Dysphagia following cerebral infarction (principal); R13.10 Dysphagia, unspecified; I69.323 Fluency disorder following cerebral infarction | CPT/HCPCS: 74230 ==

== ENCOUNTER 2022-04-17 11:17 | Outpatient (CLI) | payer MEDICARE | END 2022-04-17 11:18 | disposition home or self-care (01) | LOC: TBSIIMAG 11:17 | PROVIDERS: ATTEND Psychiatry & Neurology Neurology | DX: I60.9 Nontraumatic subarachnoid hemorrhage, unspecified (principal); I72.9 Aneurysm of unspecified site | CPT/HCPCS: 70551 ==

== ENCOUNTER 2023-04-29 11:09 | Outpatient (CLI) | payer MEDICARE | END 2023-04-29 11:10 | disposition home or self-care (01) | LOC: RAD 11:09 | PROVIDERS: ATTEND Physician Assistant Medical | DX: I69.091 Dysphagia following nontraumatic subarachnoid hemorrhage (principal); R13.10 Dysphagia, unspecified | CPT/HCPCS: 74230 ==